=== PATIENT | male | born 1945 | race Caucasian/White ===

== ENCOUNTER 2016-11-24 09:04 | Day surgery (SDC) | payer BC, MEDICARE ==
[~2016-11-24 09:04] MED LIST: Lactated Ringers 1,000 ML IV SCH; Sodium Chloride 0.9% 5 ML Syringe FLUSH PRN
[2016-11-24] MEDS ORDERED: fentaNYL 100 MCG/2 ML SDV ONE ×2 (09:15→10:32)
[2016-11-24] MEDS ORDERED: Midazolam 1 MG/ML 2 ML SDV ONE ×2 (09:15→10:32)
[2016-11-24] MEDS ORDERED: Propofol 200 MG/20 ML SDV ONE ×2 (09:16→10:32)
[2016-11-24] MEDS ORDERED: Albuterol/Ipratropium 3.0-0.5 MG/3 ML Neb Soln NEB ONE (10:11)
[2016-11-24] MEDS ORDERED: Propofol 200 MG/20 ML SDV IV ONE (10:32)
--- NOTE | 2016-11-24 10:49 | PCM.OPNOTE ---
- General Post-Op/Procedure Note Date of Surgery/Procedure: 11/24/16 Operative Procedure(s): Colonoscopy Findings: normal colonoscopy status post colon resection for colon carcinoma Pre Op Diagnosis: History of rectal bleeding status post colon carcinoma resected Post-Op Diagnosis: Status post colon resection for colon carcinoma. No recurrent polyps or carcinoma identified. Anesthesia Technique: MAC Primary Surgeon: Todd Condition: Good Free Text/Narrative:: INFORMED CONSENT: Patient is here today for elective colonoscopy. All aspects of this procedure have been discussed with the patient. All possible complications also, including possibility of perforation, infection, pain, bleeding and unknown complications. In the event of perforation patient may need to have abdominal exploration, colon resection, colostomy and even was discussed. Anesthetic complications were handled by anesthesia department. The patient understands fully well. Patient did not have any further questions for me at the end of my interview. The patient wishes for me to proceed. PREOPERATIVE DIAGNOSIS/INDICATIONS: [status post colon carcinoma resection, rectal bleeding] POSTOPERATIVE DIAGNOSIS: [as above no new growths or polyps identified. No bleeding lesion identified.] INSTRUMENT USED: Olympus videocolonoscope. ASA CLASSIFICATION: [2] ANESTHESIA: Continuous EKG, oximetry and intermittent blood pressure and respiratory monitoring were performed throughout the procedure. IV Versed and Fentanyl were administered. PROCEDURE PERFORMED: Colonoscopy POSITIONS OF PATIENT: Left lateral. RECTUM: Normal. SIGMOID COLON: It appears that the sigmoid colonand part of the descending colon have been resected.. DESCENDING COLON: Normal. SPLENIC FLEXURE: Normal. TRANSVERSE COLON: Normal. HEPATIC FLEXURE: Normal. ASCENDING COLON: Normal. CECUM: Normal. ILEOCECAL VALVE: Normal. BIOPSY: None. TOLERANCE: Excellent. COMPLICATIONS: None. Status post colon resection for carcinoma, otherwise negative colonoscopy.
[2016-11-24 11:47] VITALS: BP 114/82
== END 2016-11-24 11:59 | disposition home or self-care (01) ==
LOC: KA.SDS 09:04
PROVIDERS: ATTEND Family Medicine
DX: Z12.11 Encounter for screening for malignant neoplasm of colon (principal)
CPT/HCPCS: 00810; 94640; G0105; J2250; J2704; J3010; J7120

== ENCOUNTER 2021-03-22 10:27 | Inpatient (IN) | payer MEDICARE, OTHER ==
[2021-03-22] MEDS ORDERED: Prochlorperazine 5 MG Tab PO PRN (18:26)
[2021-03-22] MEDS ORDERED: Polyethylene Glycol 3350 Powder 17 GM Packet PO PRN (18:26)
[2021-03-22] MEDS ORDERED: Bisacodyl 10 MG Supp RECTAL PRN (18:26)
[2021-03-22] MEDS ORDERED: Acetaminophen/oxyCODONE 325-5 MG Tab PO PRN (18:26)
[2021-03-22] MEDS ORDERED: Acetaminophen 325 MG Tab PO PRN (18:26)
[2021-03-22] MEDS ORDERED: Mirtazapine 15 MG Tab PO SCH (21:00)
[2021-03-22] MEDS ORDERED: Non-Formulary Medication 1 Each NASBOTH SCH (21:00)
[2021-03-22] MEDS: Magnesium Oxide 500 MG Tab PO SCH (22:00)
[2021-03-22] MEDS: Metoprolol Tartrate 25 MG Tab PO SCH (22:36)
[2021-03-23] MEDS ORDERED: Nicotine 21 MG/24 Hr Patch TRDERM SCH (09:00)
[2021-03-23] MEDS ORDERED: VILANTER INH SCH (09:00)
[2021-03-23] MEDS ORDERED: Folic Acid 1 MG Tab PO SCH (09:00)
[2021-03-23] MEDS ORDERED: Furosemide 20 MG Tab PO SCH (09:00)
[2021-03-23] MEDS ORDERED: Potassium Chloride 20 MEQ Tab.ER PO SCH (09:00)
[2021-03-23] MEDS ORDERED: Ascorbic Acid 500 MG Tab PO SCH (09:00)
[2021-03-23] MEDS ORDERED: UMECLIDIN INH SCH (09:00)
[2021-03-23] MEDS ORDERED: Cholecalciferol (Vitamin D3) 25 MCG Tab PO SCH (09:00)
[2021-03-23] MEDS ORDERED: FLUTICASONE INH SCH (09:00)
[2021-03-23] MEDS: Magnesium Oxide 500 MG Tab PO SCH (09:21)
[2021-03-23] MEDS: Metoprolol Tartrate 25 MG Tab PO SCH (09:23)
[2021-03-23 09:24] VITALS: BP 139/58; PULSE 105
--- NOTE | 2021-03-23 10:08 | PCM.HP.2 ---
H&P History of Present Illness - General Date of Service: 03/23/21 Admit Problem/Dx: Admission Diagnosis/Problem Admission Diagnosis/Problem Septic shock Source of Information: Patient, Old Records - Related Data Allergies/Adverse Reactions: Allergies Allergy/AdvReac Type Severity Reaction Status Date / Time No Known Drug Allergies Allergy NKDA Verified 03/24/21 07:28 Home Medications: Home Meds Potassium Chloride 20 meq PO DAILY #30 tablet.er 02/25/21 [Rx] Acetaminophen 650 mg PO Q4H PRN 03/22/21 [History] Ascorbic Acid [Vitamin C] 1,000 mg PO DAILY 03/22/21 [History] Bisacodyl [Laxative Suppository] 10 mg RC DAILY PRN 03/22/21 [History] Cholecalciferol (Vitamin D3) [Vitamin D] 1,000 unit PO DAILY 03/22/21 [History] Fluticasone/Umeclidin/Vilanter [Trelegy Ellipta 100-62.5-25 MCG] 1 puff INH DAILY 03/22/21 [History] Folic Acid 1 mg PO DAILY 03/22/21 [History] Furosemide [Lasix] 20 mg PO DAILY 03/22/21 [History] Magnesium Oxide 250 mg PO BID 03/22/21 [History] Metoprolol Tartrate [Lopressor] 12.5 mg PO BID 03/22/21 [History] Mirtazapine [Remeron] 7.5 mg PO BEDTIME 03/22/21 [History] Nicotine [Nicotine Patch] 21 mg TD DAILY 03/22/21 [History] Prochlorperazine [Compazine] 10 mg PO QID PRN 03/22/21 [History] Sennosides 1 tab PO DAILY PRN 03/22/21 [History] oxyCODONE HCl/Acetaminophen [Oxycodone-Acetaminophen 5-325] 1 tab PO Q6H PRN 03/22/21 [History] polyethylene glycoL 3350 [MiraLAX] 17 gm PO DAILY PRN 03/22/21 [History] Past Medical History HEENT History: Reports: Impaired Vision, Sinusitis Cardiovascular History: Reports: Afib, Hypertension, SOB on Exertion Respiratory History: Reports: Bronchitis, Recurrent, COPD, SOB, Other (See Below) Other Respiratory History: Lung CA Gastrointestinal History: Reports: Other (See Below) Other Gastrointestinal History: peforated gallbladder s/p cholescystectomy February 2021 w/ abscess drain (IJ drain) Musculoskeletal History: Reports: Arthritis Endocrine/Metabolic History: Reports: Vitamin D Deficiency Hematologic History: Reports: Anemia, Folic Acid, Iron Deficiency Immunologic History: Reports: Immunosuppression Other Immunologic History: history of chemo and radiation in 2001; current chemo for metastatic lung CA Oncologic (Cancer) History: Reports: Colon, Lung, Metastatic Other Oncologic History: metastatic lung cancer - Infectious Disease History Infectious Disease History: Reports: Novel Coronavirus - Past Surgical History HEENT Surgical History: Reports: None Cardiovascular Surgical History: Reports: None Respiratory Surgical History: Reports: None GI Surgical History: Reports: Cholecystectomy, Colonoscopy Other GI Surgeries/Procedures: bowel resection Other Oncologic Surgeries/Procedures: colon resection in 2001 Social & Family History - Family History Family Medical History: No Pertinent Family History - Tobacco Use Tobacco Use Status *Q: Current Every Day Tobacco User Years of Tobacco use: 60 Packs/Tins Daily: 0.2 Used Tobacco, but Quit: No - Caffeine Use Caffeine Use: Reports: None - Alcohol Use Days Per Week of Alcohol Use: 3 Number of Drinks Per Day: 2 Total Drinks Per Week: 6 - Recreational Drug Use Recreational Drug Use: No H&P Review of Systems - Review of Systems: Review Of Systems: See Below Free Text/Narrative: somewhat difficult ROS obtained. Patient with frequent nodding off during assessment and unable to maintain full attentiveness due to fatigue. General: Reports: Malaise, Weakness, Fatigue Pulmonary: Reports: Shortness of Breath (stable for baseline) Cardiovascular: Reports: Palpitations (at times), Edema (mild). Denies: Chest Pain, Orthopnea, PND Gastrointestinal: Denies: Abdominal Pain, Bloody Stool, Constipation, Diarrhea, Hematemesis, Hematochezia, Melena, Nausea, Vomiting Genitourinary: Denies: Dysuria, Frequency, Burning, Hematuria Musculoskeletal: Reports: No Symptoms Skin: Reports: No Symptoms, Other (reddened coccyx per [facility] staff, percutaneous cholecystectomy drain) Neurological: Denies: Confusion, Headache Hematologic/Lymphatic: Reports: Anemia, Easy Bruising. Denies: Easy Bleeding Exam - Exam Exam: See Below (drain in place. dressing Clean, dry and intact. scant brown drainage in drainage bag.) - Vital Signs Vital Signs: Last Vital Signs Temp 98.6 F 03/23/21 09:00 Pulse 105 H 03/23/21 09:23 Resp 28 H 03/23/21 09:00 BP 139/58 L 03/23/21 09:23 Pulse Ox 94 L 03/23/21 09:28 Weight: 163 lb 4.8 oz - Exam Quality Assessment: Supplemental Oxygen, DVT Prophylaxis, Skin Breakdown General: Other (fatigued) Lungs: Rales Cardiovascular: Regular Rate, Irregular Rhythm GI/Abdominal Exam: Soft, Non-Tender (Male) Exam: Deferred Rectal (Males) Exam: Deferred Extremities: Pedal Edema (trace pretibial and ankle edema), Pallor Skin: Warm, Dry, Other - Patient Data Result Diagrams: 03/23/21 17:15 03/23/21 17:15 Sepsis Event Note - Evaluation Sepsis Screening Result: Severe Sepsis Risk - Focused Exam Vital Signs: Vital Signs Temp Pulse Pulse Resp BP BP Pulse Ox 03/23/21 09:28 94 L 03/23/21 09:23 105 H 139/58 L 03/23/21 09:00 98.6 F 105 H 28 H 139/58 L 94 L - Problem List (1) Physical deconditioning SNOMED Code(s): 83400788803221 ICD Code: R53.81 - OTHER MALAISE Status: Acute (2) Rupture of gallbladder SNOMED Code(s): 68409699 ICD Code: K82.2 - PERFORATION OF GALLBLADDER Status: Acute (3) Lung mass SNOMED Code(s): 695746657 ICD Code: R91.8 - OTHER NONSPECIFIC ABNORMAL FINDING OF LUNG FIELD Status: Acute (4) Pancreatic mass SNOMED Code(s): 900638670 ICD Code: K86.89 - OTHER SPECIFIED DISEASES OF PANCREAS Status: Acute (5) Septic shock SNOMED Code(s): 65885912 ICD Code: A41.9 - SEPSIS, UNSPECIFIED ORGANISM; R65.21 - SEVERE SEPSIS WITH SEPTIC SHOCK Status: Acute (6) Thrombocytopenia SNOMED Code(s): 792685827 ICD Code: D69.6 - THROMBOCYTOPENIA, UNSPECIFIED Status: Acute (7) Chronic respiratory failure with hypoxia, on home O2 therapy SNOMED Code(s): 814229083 ICD Code: J96.11 - CHRONIC RESPIRATORY FAILURE WITH HYPOXIA; Z99.81 - D EPENDENCE ON SUPPLEMENTAL OXYGEN Status: Acute Problem List Initiated/Reviewed/Updated: Yes Orders Last 24hrs: Active Orders 24 hr Category Date Time Status Patient Status [ADT] Routine ADT 03/22/21 18:15 Active Communication Order [RC] 09 Care 03/22/21 21:00 Active Communication Order [RC] 09 Care 03/23/21 09:00 Active Communication Order [RC] Care 03/22/21 21:00 Active Dietary Supplements [RC] ACBED Care 03/23/21 06:50 Active May Shower [RC] .PRN Care 03/22/21 18:20 Active Oxygen Therapy [RC] .PRN Care 03/22/21 18:15 Active Pressure Ulcer Assessment [RC] Care 03/22/21 21:00 Active Surgical Drains [Drain Management] [RC] Care 03/22/21 19:18 Active Up With Assistance [RC] DAILY Care 03/22/21 18:20 Active VTE/DVT Education [RC] Fr@09 Care 03/22/21 18:15 Active Vital Signs [RC] Care 03/22/21 18:15 Active Consult to Case Management/Secondary School Principal [CONS] Cons 03/23/21 07:31 Active Routine PT Evaluation and Treatment [CONS] Routine Cons 03/22/21 18:20 Active Acetaminophen [TylenoL] Med 03/22/21 18:26 Active 650 mg PO Q4H PRN Acetaminophen/oxyCODONE [Percocet 325-5 MG] Med 03/22/21 18:26 Active 1 tab PO Q6H PRN Ascorbic Acid [Vitamin C] Med 03/23/21 09:00 Active 1,000 mg PO DAILY Cefpodoxime Proxetil Med 03/22/21 18:30 Pending 200 mg PO Q12H Cholecalciferol (Vitamin D3) [Vitamin D3] Med 03/23/21 09:00 Active 25 mcg PO DAILY Docusate Sodium/Sennosides [Senna Plus] Med 03/22/21 18:26 Active 1 tab PO DAILY PRN Fluticasone/Umeclidin/Vilanter Med 03/23/21 09:00 Pending 1 puff INH DAILY Folic Acid Med 03/23/21 09:00 Active 1 mg PO DAILY Furosemide [Lasix] Med 03/23/21 09:00 Active 20 mg PO DAILY Magnesium Oxide Med 03/22/21 21:00 Active 250 mg PO BID Metoprolol Tartrate [Lopressor] Med 03/22/21 21:00 Active 12.5 mg PO BID Mirtazapine [Remeron] Med 03/22/21 21:00 Active 7.5 mg PO BEDTIME Nicotine [Habitrol] Med 03/23/21 09:00 Active 21 mg TRDERM DAILY Non-Formulary Medication [NF Drug] Med 03/22/21 21:00 Pending 2 each NASBOTH TID Potassium Chloride [Klor-Con M20] Med 03/23/21 09:00 Active 20 meq PO DAILY Prochlorperazine [Compazine] Med 03/22/21 18:26 Active 10 mg PO QID PRN bisacodyL [Dulcolax] Med 03/22/21 18:26 Active 10 mg RECTAL DAILY PRN polyethylene glycoL 3350 [MiraLAX] Med 03/22/21 18:26 Active 17 gm PO DAILY PRN Resuscitation Status Routine Resus Stat 03/22/21 18:14 Ordered Medication Orders Acetaminophen (Acetaminophen 325 Mg Tab) 650 mg PO Q4H PRN PRN Reason: Pain Ascorbic Acid (Ascorbic Acid 500 Mg Tab) 1,000 mg PO DAILY [facility] Last Admin: 03/23/21 09:24 Dose: 1,000 mg Documented by: FIDELINA Bisacodyl (Bisacodyl 10 Mg Supp) 10 mg RECTAL DAILY PRN PRN Reason: Constipation Cholecalciferol (Cholecalciferol (Vitamin D3) 25 Mcg Tab) 25 mcg PO DAILY [facility] Last Admin: 03/23/21 09:24 Dose: 25 mcg Documented by: FIDELINA Folic Acid (Folic Acid 1 Mg Tab) 1 mg PO DAILY [facility] Last Admin: 03/23/21 09:20 Dose: 1 mg Documented by: FIDELINA Furosemide (Furosemide 20 Mg Tab) 20 mg PO DAILY [facility] Last Admin: 03/23/21 09:21 Dose: 20 mg Documented by: FIDELINA Magnesium Oxide (Magnesium Oxide 500 Mg Tab) 250 mg PO BID [facility] Last Admin: 03/23/21 09:21 Dose: 250 mg Documented by: Admin: 03/22/21 22:00 Dose: 250 mg Documented by: NIHARIKA Metoprolol Tartrate (Metoprolol Tartrate 25 Mg Tab) 12.5 mg PO BID [facility] Last Admin: 03/23/21 09:23 Dose: 12.5 mg Documented by: Admin: 03/22/21 22:36 Dose: Not Given Documented by: NIHARIKA Mirtazapine (Mirtazapine 15 Mg Tab) 7.5 mg PO BEDTIME [facility] Last Admin: 03/22/21 21:59 Dose: 7.5 mg Documented by: NIHARIKA Nicotine (Nicotine 21 Mg/24 Hr Patch) 21 mg TRDERM DAILY [facility] Last Admin: 03/23/21 09:24 Dose: Not Given Documented by: FIDELINA Non-Formulary Medication (Non-Formulary Medication 1 Each) 2 each NASBOTH TID [facility] Non-Formulary Medication (Cefpodoxime Proxetil) 200 mg PO Q12H [facility] Non-Formulary Medication (Fluticasone/Umeclidin/Vilanter) 1 puff INH DAILY [facility] Oxycodone/Acetaminophen (Acetaminophen/Oxycodone 325-5 Mg Tab) 1 tab PO Q6H PRN PRN Reason: Pain (moderate 4-6) Polyethylene Glycol (Polyethylene Glycol 3350 Powder 17 Gm Packet) 17 gm PO DAILY PRN PRN Reason: Constipation Potassium Chloride (Potassium Chloride 20 Meq Tab.Er) 20 meq PO DAILY [facility] Last Admin: 03/23/21 09:20 Dose: 20 meq Documented by: FIDELINA Prochlorperazine Maleate (Prochlorperazine 5 Mg Tab) 10 mg PO QID PRN PRN Reason: Nausea/Vomiting Senna/Docusate Sodium (Docusate Sodium/Sennosides 50-8.6 Mg Tab) 1 tab PO DAILY PRN PRN Reason: Constipation Assessment/Plan Comment:: History of present illness: This is a 75 year old male with a significant PMH of Metastatic non-small cell lung cancer on chemotherapy, pancreatic mass, COPD, thrombocytopenia, atrial fibrillation/flutter not on anticoagulation admitted to [facility] for PT/OT services. Patient was hospitalized at [facility] 03/15/21 - 03/22/21 for septic shock secondary to perforated gallbladder, gram negative bacteremia with E. Coli on blood cultures. On admission to [facility] he was started on Zosyn, switched to Ceftriaxone 03/19. Discharged on oral Vantin 200 mg 2 times a day for total 14 days given bacteremia. He underwent cholecystectomy with drainage tube placement on 03/16/21. limited drainage output per records. Primary problems: # Perforated gallbladder- -s/p cholecystectomy with percutaneous cholecystectomy drain in place. - IR recommendation to keep drain usually for 6 weeks to have time to perform a tract before removal. # septic shock- secondary to above # Gram-negative bacteremia- - E. coli blood cultures pansensitive. - started on Cefpodoxime (Vantin) BID for an additional 8 days (14 total days). Cefpodoxime is not available locally will switch to to Cefdinir alternate 3rd generation cephalosporin available in facility. # Thrombocytopenia- - acute on chronic secondary to chemotherapy. - 60,000 at discharge. dropped to 34,000 during hospitalization. - No report of easy bleeding. # Non-small cell lung cancer of the RUL- - metastasis to the pancreas, left adrenal gland, left abdominal wall site- - s/p radiation therapy to the pancreatic mass. - s/p chemo with carboplatin + taxol x 4 cycles. Added keytruda with cycle 3. 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 followed by oncology at [facility]. #COPD- - on home oxygen with 2-3 L continuously. - on Trelegy Chronic conditions # anemia- secondary to chemo. 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 planned for during hospitalization however due to pulmonary status GI Recommend outpatient ERCP in one month. # tobacco use disorder- NRT # Hypokalemia- 20 MeQ K+ daily. #Hypomagnesemia-replaced IV prior to discharge. started on PO replacement. #Atrial fibrillation:5started low-dose gzaweuvtx15.5mg twice a day which was continued at discharge. No anticoagulation due to thrombocytopenia. # Chronic diastolic CHF- on lasix 20mg with potassium supplement. ECHO 01/17/21 normal LV systolic function. EF 65%. grade 1 diastolic dysfunction. no significant valvular abnormalities. # dilatation of the aorta- noted on ECHO. measuring 41.0 mm # Nausea- compazine PRN # Constipation- miralax daily. Senna PRN. # insomnia- remeron MISC meds/supplements- calcium, vitamin D, Folic acid. Diet: mechanical soft diet. (Dentures were lost during hospitalization in [place]. Patient reports difficulty with chewing as a result. Dietary to work with patient with meal selection. CODE STATUS: DNR/DNI 8/7/21 Lengthy discussion had with patient with present at bedside. Also called both daughters Hawa (DPTHAD) and Lina to review patient wishes and code status. Patient and family collectively agree to change patient from a Full code and DNR. Patient states that he does not wish to have CPR, intubation or any artificial nutrition. For now we will continue patient as a full treatment. However did discuss with patient his wishes for continued treatment and he states he is unsure. POLST form reviewed with patient and signed by patient with presents at bedside. Follow-up: - 04/01/21- Oncology follow-up with Dr. Mancini. Chemotherapy. - outpatient ERCP in approximately 1 month with stent change (referral placed at discharge, scheduled date pending) - Outpatient IR follow-up for drain removal in approximately 6 weeks (referral placed at discharge, scheduled date pending)
[2021-03-23] MEDS: CEFPODOXIME PROXETIL 200 MG PO SCH (13:38)
[2021-03-23 17:45] LABS: ANION GAP 9.5 mmol/L (5-15); CHLORIDE,CL 97 mmol/L (98-107); SODIUM,NA 135 mmol/L (136-145)
--- NOTE | 2021-03-23 18:38 | PCM.DCSUM1 ---
Discharge Summary - Discharge Data Discharge Date: 03/23/21 Discharge Disposition: Admitted As Inpatient 66 Condition: Good - Discharge Diagnosis/Problem(s) (1) Physical deconditioning SNOMED Code(s): 97635960201771 ICD Code: R53.81 - OTHER MALAISE Status: Acute (2) Rupture of gallbladder SNOMED Code(s): 95900854 ICD Code: K82.2 - PERFORATION OF GALLBLADDER Status: Acute (3) Lung mass SNOMED Code(s): 464475200 ICD Code: R91.8 - OTHER NONSPECIFIC ABNORMAL FINDING OF LUNG FIELD Status: Acute (4) Pancreatic mass SNOMED Code(s): 338475969 ICD Code: K86.89 - OTHER SPECIFIED DISEASES OF PANCREAS Status: Acute (5) Septic shock SNOMED Code(s): 13774946 ICD Code: A41.9 - SEPSIS, UNSPECIFIED ORGANISM; R65.21 - SEVERE SEPSIS WITH SEPTIC SHOCK Status: Acute (6) Thrombocytopenia SNOMED Code(s): 877434010 ICD Code: D69.6 - THROMBOCYTOPENIA, UNSPECIFIED Status: Acute (7) Chronic respiratory failure with hypoxia, on home O2 therapy SNOMED Code(s): 060334272 ICD Code: J96.11 - CHRONIC RESPIRATORY FAILURE WITH HYPOXIA; Z99.81 - DEPENDENCE ON SUPPLEMENTAL OXYGEN Status: Acute (8) Urinary retention SNOMED Code(s): 920931386 ICD Code: R33.9 - RETENTION OF URINE, UNSPECIFIED Status: Acute (9) Acute and chronic respiratory failure with hypoxia SNOMED Code(s): 12585879, 822383231 ICD Code: J96.21 - ACUTE AND CHRONIC RESPIRATORY FAILURE WITH HYPOXIA Status: Acute - Patient Summary/Data Hospital Course: History of present illness: This is a 75 year old male with a significant PMH of Metastatic non-small cell lung cancer on chemotherapy, pancreatic mass, COPD, thrombocytopenia, atrial fibrillation/flutter not on anticoagulation admitted to [facility] 03/22/21 initially swing bed for PT/OT services. Patient was hospitalized at [facility] 03/15/21 - 03/22/21 for septic shock secondary to perforated gallbladder, gram negative bacteremia with E. Coli on blood cultures. On admission to [facility] he was started on Zosyn, switched to Ceftriaxone 03/19. Discharged on oral Vantin 200 mg 2 times a day for 8 days (total 14 days) given bacteremia. He underwent cholecystectomy with drainage tube placement on 03/16/21. limited drainage output per records. Patient was changed from swing bed status to inpatient on 03/23/21 for multiple acute concerns including worsening hypoxia, decreased urine output. Hospitalization Course: 03/22/21- Patient arrived from [facility] late evening and admitted to swing bed at [facility] 03/23/21 Patient ill appearing on hospital rounds 03/23/21. He is lying in bed with limited interaction and slow to respond to verbal stimuli. He is fatigued and profoundly weak. Lengthy discussion had with patient regarding Full code status with patient desiring to change to a DRN status with family in agreement. Interval update 03/23/21: acute patient concerns. plan to discharge patient from swingbed and admit to inpatient status. #Decreased urine output # urinary retetnion - Nursing staff noted no urine output since the prior shift production associate. - bladder ultrasound around 1400 with only 50 ml in the bladder to approximately 350 ml PO intake. Still no urine output by evening shift. - renal function done and normal - Patient catheterized around 1900 for approximately 250ml urine output of yana urine. - will trial small fluid increase with NS 75ml/hr x 4 hours with close monitoring for fluid overload. patient has had poor oral/fluid intake. - also note reports of decreased urine output during hospitalization at [facility]. Discharge documentation notes an intake of 1400 with output of 25ml of the day of discharge. however unsure if this was accurate. This information and urinary concerns were not relayed on discharge. # Acute on chronic hypoxic respiratory failure. - Staff also report worsening respiratory status with reports of increased SOB and hypoxia - CBC done with stable WBC however increase in percent neutrophils to 97% - CMP done and stable - BNP elevated at 431 however this is down from [facility] - EKG done Sinus tachy with PVCs, right BBB, possible inferior infarct (no change from previous EKG) - Chest x-ray showing infiltrate, atelectasis, and effusion of left lung base ? pneumonia. PE a consideration - CTA- no PE. atelectasis at left lung base, mild pleural reaction bilaterally. Known right upper lung malignancy and pancreatic mass. Hospitalization problems: # Acute on chronic hypoxic respiratory failure # COPD - on home oxygen with 2-3 L continuously however with increasing oxygen requirements requiring up to 5 L now - on Trelegy - CTA done with no evidence of PE. No pneumonia as questioned on x-ray. # hypomagnesemia - replace 2 g IV today - recheck in AM # Decreased urine output # urinary retention - indwelling catheter for accurate I/O # Perforated gallbladder- -s/p cholecystectomy with percutaneous cholecystostomy drain in place. - limited drainage output (5ml) - IR recommendation to keep drain usually for 6 weeks to have time to perform a tract before removal. # septic shock- secondary to above # Gram-negative bacteremia- - E. coli blood cultures pansensitive. - started on Cefpodoxime (Vantin) BID for an additional 8 days (14 total days) at discharge. Cefpodoxime is not available locally will switch to Cefdinir alternative 3rd generation cephalosporin available in facility. - given change in patient status. Cefdinir held and 2gm IV Rocephin given # Thrombocytopenia- - acute on chronic secondary to chemotherapy. - stable. continue to monitor - No report of easy bleeding. # Non-small cell lung cancer of the RUL- - metastasis to the pancreas, left adrenal gland, left abdominal wall site- - s/p radiation therapy to the pancreatic mass. - s/p chemo with carboplatin + taxol x 4 cycles. Added keytruda with cycle 3. 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 - followed by oncology at [facility]. Chronic conditions # anemia- secondary to chemo. 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 planned for during hospitalization however due to pulmonary status GI Recommend outpatient ERCP in one month. # tobacco use disorder- NRT # Hypokalemia- 20 MeQ K+ daily. #Atrial fibrillation:/5started low-dose btnfwuvuy82.5mg twice a day which was continued at discharge. No anticoagulation due to thrombocytopenia. # Chronic diastolic CHF- on lasix 20mg with potassium supplement. # dilatation of the aorta- noted on ECHO. measuring 41.0 mm # Nausea- compazine PRN # Constipation- miralax daily. Senna PRN. # insomnia- remeron MISC meds/supplements- calcium, vitamin D, Folic acid. Diet: mechanical soft diet. (Dentures were lost during hospitalization in [place]. Patient reports difficulty with chewing as a result. Dietary to work with patient with meal selection. CODE STATUS: DNR/DNI 03/23/21 Lengthy discussion had with patient with present at bedside. Also called both daughters Hawa (DPTHAD) and Lina to review patient wishes and code status. Patient and family collectively agree to change patient from a Full code and DNR. Patient states that he does not wish to have CPR, intubation or any artificial nutrition. For now we will continue patient as a full treatment. However did discuss with patient his wishes for continued treatment and he states he is unsure. POLST form reviewed with patient and signed by patient with presents at bedside. Disposition: - Plan for discharge from swing bed status and admit to inpatient states for acute on chronic hypoxic respiratory failure and urinary retention/decreased urinary output. Follow-up: - 04/01/21- Oncology follow-up with Dr. Mancini. Chemotherapy. - outpatient ERCP in approximately 1 month with stent change (referral placed at discharge, scheduled date pending) - Outpatient IR follow-up for drain removal in approximately 6 weeks (referral placed at discharge, scheduled date pending) - Discharge Plan Home Medications: Home Meds Potassium Chloride 20 meq PO DAILY #30 tablet.er 02/25/21 [Rx] Acetaminophen 650 mg PO Q4H PRN 03/22/21 [History] Ascorbic Acid [Vitamin C] 1,000 mg PO DAILY 03/22/21 [History] Bisacodyl [Laxative Suppository] 10 mg RC DAILY PRN 03/22/21 [History] Cholecalciferol (Vitamin D3) [Vitamin D] 1,000 unit PO DAILY 03/22/21 [History] Fluticasone/Umeclidin/Vilanter [Trelegy Ellipta 100-62.5-25 MCG] 1 puff INH DAILY 03/22/21 [History] Folic Acid 1 mg PO DAILY 03/22/21 [History] Furosemide [Lasix] 20 mg PO DAILY 03/22/21 [History] Magnesium Oxide 250 mg PO BID 03/22/21 [History] Metoprolol Tartrate [Lopressor] 12.5 mg PO BID 03/22/21 [History] Mirtazapine [Remeron] 7.5 mg PO BEDTIME 03/22/21 [History] Nicotine [Nicotine Patch] 21 mg TD DAILY 03/22/21 [History] Prochlorperazine [Compazine] 10 mg PO QID PRN 03/22/21 [History] Sennosides 1 tab PO DAILY PRN 03/22/21 [History] oxyCODONE HCl/Acetaminophen [Oxycodone-Acetaminophen 5-325] 1 tab PO Q6H PRN 03/22/21 [History] polyethylene glycoL 3350 [MiraLAX] 17 gm PO DAILY PRN 03/22/21 [History] - Discharge Summary/Plan Comment DC Time >30 min.: No Total # of Minutes for Discharge Time: 30 - General Info Date of Service: 03/23/21 Functional Status: Denies: Ambulating - Review of Systems General: Reports: Weakness, Fatigue, Malaise, Appetite Pulmonary: Reports: Shortness of Breath, Cough Cardiovascular: Reports: Palpitations, Edema (minimal). Denies: Chest Pain Gastrointestinal: Reports: Decreased Appetite. Denies: Abdominal Pain, Constipation, Diarrhea, Difficulty Swallowing, Hematochezia, Melena, Nausea, Vomiting Genitourinary: Reports: No Symptoms Musculoskeletal: Reports: Other (buttock discomfort) Skin: Reports: Pallor Neurological: Reports: No Symptoms Psychiatric: Reports: No Symptoms - Patient Data Vitals - Most Recent: Last Vital Signs Temp 98.6 F 03/23/21 09:00 Pulse 105 H 03/23/21 09:23 Resp 28 H 03/23/21 16:28 BP 139/58 L 03/23/21 09:23 Pulse Ox 91 L 03/23/21 16:28 Weight - Most Recent: 163 lb 4.8 oz I&O - Last 24 hours: Intake & Output 03/23/21 03/23/21 03/23/21 06:59 14:59 22:59 Intake Total 0 340 Output Total 5 0 Balance -5 340 Lab Results - Last 24 hrs: Laboratory Results - last 24 hr 03/23/21 03/23/21 03/23/21 Range/Units 17:15 17:15 17:15 WBC 10.93 H (5.00-10.00) 10^3/uL RBC 2.22 L (4.50-6.00) 10^6/uL Hgb 7.5 L (13.0-17.0) g/dL Hct 23.1 L (40.0-52.0) % MCV 104.1 H (82.0-92.0) fL MCH 33.8 H (27.0-31.0) pg MCHC 32.5 (32.0-36.0) g/dL RDW 18.2 H (11.5-14.5) % Plt Count 49 L (150-400) 10^3/uL MPV 13.1 H (7.4-10.4) fL Add Manual Diff Yes Neutrophils % (Manual) 97 H (50-70) % Lymphocytes % (Manual) 2 L (20-40) % Monocytes % (Manual) 1 L (2-8) % Polychromasia Macrocytosis Occasional Sodium 135 L (136-145) mmol/L Potassium 3.7 (3.5-5.1) mmol/L Chloride 97 L (98-107) mmol/L Carbon Dioxide 32.2 H (21.0-32.0) mmol/L Anion Gap 9.5 (5-15) mmol/L BUN 11 (7-18) mg/dL Creatinine 0.50 L (0.51-1.17) mg/dL Est Cr Clr Drug Dosing 119.35 mL/min Estimated GFR (MDRD) > 60 mL/min Glucose 123 (70-140) mg/dL Calcium 7.4 L (8.7-10.3) mg/dL Magnesium 1.6 L (1.8-2.4) mg/dL Total Bilirubin 0.1 L (0.2-1.0) mg/dL AST 26 (15-37) U/L ALT 15 (14-63) U/L Alkaline Phosphatase 93 (46-116) U/L B-Natriuretic Peptide 431 H (0-100) pg/mL Total Protein 4.9 L (6.4-8.2) g/dL Albumin 1.33 L (3.40-5.00) g/dL Med Orders - Current: Current Medications Discontinued Medications Acetaminophen (Acetaminophen 325 Mg Tab) 650 mg PO Q4H PRN PRN Reason: Pain Ascorbic Acid (Ascorbic Acid 500 Mg Tab) 1,000 mg PO DAILY [facility] Last Admin: 03/23/21 09:24 Dose: 1,000 mg Documented by: Bisacodyl (Bisacodyl 10 Mg Supp) 10 mg RECTAL DAILY PRN PRN Reason: Constipation Cefdinir (Cefdinir 300 Mg Cap) 300 mg PO BID [facility] Stop: 03/31/21 21:01 Cholecalciferol (Cholecalciferol (Vitamin D3) 25 Mcg Tab) 25 mcg PO DAILY [facility] Last Admin: 03/23/21 09:24 Dose: 25 mcg Documented by: Folic Acid (Folic Acid 1 Mg Tab) 1 mg PO DAILY [facility] Last Admin: 03/23/21 09:20 Dose: 1 mg Documented by: Furosemide (Furosemide 20 Mg Tab) 20 mg PO DAILY [facility] Last Admin: 03/23/21 09:21 Dose: 20 mg Documented by: Magnesium Oxide (Magnesium Oxide 500 Mg Tab) 250 mg PO BID [facility] Last Admin: 03/23/21 09:21 Dose: 250 mg Documented by: Metoprolol Tartrate (Metoprolol Tartrate 25 Mg Tab) 12.5 mg PO BID [facility] Last Admin: 03/23/21 09:23 Dose: 12.5 mg Documented by: Mirtazapine (Mirtazapine 15 Mg Tab) 7.5 mg PO BEDTIME [facility] Last Admin: 03/22/21 21:59 Dose: 7.5 mg Documented by: Nicotine (Nicotine 21 Mg/24 Hr Patch) 21 mg TRDERM DAILY [facility] Last Admin: 03/23/21 09:24 Dose: Not Given Documented by: Non-Formulary Medication (Non-Formulary Medication 1 Each) 2 each NASBOTH TID [facility] Non-Formulary Medication (Cefpodoxime Proxetil) 200 mg PO Q12H [facility] Last Admin: 03/23/21 13:38 Dose: Not Given Documented by: Fluticasone/Umeclidin/Vilanter ( Trelegy) Inhaler Own Med 1 puff INH DAILY [facility] Last Admin: 03/23/21 13:48 Dose: 1 puff Documented by: Oxycodone/Acetaminophen (Acetaminophen/Oxycodone 325-5 Mg Tab) 1 tab PO Q6H PRN PRN Reason: Pain (moderate 4-6) Polyethylene Glycol (Polyethylene Glycol 3350 Powder 17 Gm Packet) 17 gm PO DAILY PRN PRN Reason: Constipation Potassium Chloride (Potassium Chloride 20 Meq Tab.Er) 20 meq PO DAILY [facility] Last Admin: 03/23/21 09:20 Dose: 20 meq Documented by: Prochlorperazine Maleate (Prochlorperazine 5 Mg Tab) 10 mg PO QID PRN PRN Reason: Nausea/Vomiting Senna/Docusate Sodium (Docusate Sodium/Sennosides 50-8.6 Mg Tab) 1 tab PO DAILY PRN PRN Reason: Constipation - Exam Quality Assessment: Reports: Supplemental Oxygen, Skin Breakdown General: Reports: Mild Distress, Other (fatigued, difficulty in conversing due to frequently falling asleep) Neck: Reports: Supple Lungs: Reports: Rales Cardiovascular: Reports: Regular Rate, Irregular Rhythm GI/Abdominal Exam: Normal Bowel Sounds, Soft, Non-Tender (Male) Exam: Deferred Rectal (Males) Exam: Deferred Skin: Reports: Warm, Dry, Intact, Other (percutaneous drain )
[2021-03-23] MEDS ORDERED: Cefdinir 300 MG Cap PO SCH (21:00)
== END 2021-03-23 18:33 | disposition critical access hospital (66) | DRG 871 ==
LOC: KA.MS 16:45
PROVIDERS: ADMIT Nurse Practitioner Family; ATTEND Family Medicine
DX: A41.50 Gram-negative sepsis, unspecified (principal); R65.21 Severe sepsis with septic shock; K82.2 Perforation of gallbladder; J96.21 Acute and chronic respiratory failure with hypoxia; I50.32 Chronic diastolic (congestive) heart failure; C34.11 Malignant neoplasm of upper lobe, right bronchus or lung; R91.8 Other nonspecific abnormal finding of lung field; K86.89 Other specified diseases of pancreas; D69.6 Thrombocytopenia, unspecified; R33.9 Retention of urine, unspecified; Z66 Do not resuscitate; G47.00 Insomnia, unspecified; K59.00 Constipation, unspecified; E87.6 Hypokalemia; I11.0 Hypertensive heart disease with heart failure; E83.42 Hypomagnesemia; J44.9 Chronic obstructive pulmonary disease, unspecified; R53.81 Other malaise; I48.91 Unspecified atrial fibrillation; D50.9 Iron deficiency anemia, unspecified; F17.210 Nicotine dependence, cigarettes, uncomplicated; Z79.01 Long term (current) use of anticoagulants; Z79.899 Other long term (current) drug therapy; Z92.21 Personal history of antineoplastic chemotherapy; Z92.3 Personal history of irradiation; Z98.890 Other specified postprocedural states; Z87.09 Personal history of other diseases of the respiratory system; Z85.118 Personal history of other malignant neoplasm of bronchus and lung; Z90.49 Acquired absence of other specified parts of digestive tract; Z86.16 Personal history of COVID-19
CPT/HCPCS: 36415; 80053; 83735; 83880; 85025; A9270-GY

== ENCOUNTER 2021-03-23 18:35 | Inpatient (IN) | payer MEDICARE, OTHER ==
[2021-03-23] MEDS ORDERED: cefTRIAXone 2 GM Vial IVPUSH ONE (18:43)
[2021-03-23] MEDS ORDERED: Bisacodyl 10 MG Supp RECTAL PRN (19:52)
[2021-03-23] MEDS ORDERED: SENNOSIDES 8.6 MG PO PRN (19:52)
[2021-03-23] MEDS ORDERED: Prochlorperazine 5 MG Tab PO PRN (19:52)
[2021-03-23] MEDS ORDERED: Acetaminophen/oxyCODONE 325-5 MG Tab PO PRN (19:52)
[2021-03-23] MEDS ORDERED: Polyethylene Glycol 3350 Powder 17 GM Packet PO PRN (19:52)
--- NOTE | 2021-03-23 20:07 | CR ---
[id number] RAD/RAD Chest Portable EXAM: PORTABLE CHEST RADIOGRAPH. INDICATION: HYPOXIA COMPARISON: CORRELATION IS MADE WITH MARCH 15, 2021 FINDINGS: Volume loss with pleural reaction is a new development at the left lung base The right upper lobe mass is stable The lungs otherwise are clear IMPRESSION: INFILTRATE, ATELECTASIS, AND EFFUSION LEFT BASE LIKELY THIS REPRESENTS PNEUMONIA PULMONARY EMBOLUS IS A CONSIDERATION Ady Gómez MD 03/23/212005 Thank you for allowing us to participate in the care of your patient.
--- NOTE | 2021-03-23 20:10 | PCM.HP.2 ---
H&P History of Present Illness - General Date of Service: 03/23/21 Admit Problem/Dx: Admission Diagnosis/Problem Admission Diagnosis/Problem Bacteremia Source of Information: Patient, Family, Old Records, Significant Other - Related Data Allergies/Adverse Reactions: Allergies Allergy/AdvReac Type Severity Reaction Status Date / Time No Known Drug Allergies Allergy NKDA Verified 03/24/21 07:28 Home Medications: Home Meds Potassium Chloride 20 meq PO DAILY #30 tablet.er 02/25/21 [Rx] Acetaminophen 650 mg PO Q4H PRN 03/22/21 [History] Ascorbic Acid [Vitamin C] 1,000 mg PO DAILY 03/22/21 [History] Bisacodyl [Laxative Suppository] 10 mg RC DAILY PRN 03/22/21 [History] Cholecalciferol (Vitamin D3) [Vitamin D] 1,000 unit PO DAILY 03/22/21 [History] Fluticasone/Umeclidin/Vilanter [Trelegy Ellipta 100-62.5-25 MCG] 1 puff INH DAILY 03/22/21 [History] Folic Acid 1 mg PO DAILY 03/22/21 [History] Furosemide [Lasix] 20 mg PO DAILY 03/22/21 [History] Magnesium Oxide 250 mg PO BID 03/22/21 [History] Metoprolol Tartrate [Lopressor] 12.5 mg PO BID 03/22/21 [History] Mirtazapine [Remeron] 7.5 mg PO BEDTIME 03/22/21 [History] Nicotine [Nicotine Patch] 21 mg TD DAILY 03/22/21 [History] Prochlorperazine [Compazine] 10 mg PO QID PRN 03/22/21 [History] Sennosides 1 tab PO DAILY PRN 03/22/21 [History] oxyCODONE HCl/Acetaminophen [Oxycodone-Acetaminophen 5-325] 1 tab PO Q6H PRN 03/22/21 [History] polyethylene glycoL 3350 [MiraLAX] 17 gm PO DAILY PRN 03/22/21 [History] Past Medical History HEENT History: Reports: Impaired Vision, Sinusitis Cardiovascular History: Reports: Afib, Hypertension, SOB on Exertion Respiratory History: Reports: Bronchitis, Recurrent, COPD, SOB, Other (See Below) Other Respiratory History: Lung CA Gastrointestinal History: Reports: Other (See Below) Other Gastrointestinal History: peforated gallbladder s/p cholescystectomy February 2021 w/ abscess drain (IJ drain) Musculoskeletal History: Reports: Arthritis Endocrine/Metabolic History: Reports: Vitamin D Deficiency Hematologic History: Reports: Anemia, Folic Acid, Iron Deficiency Immunologic History: Reports: Immunosuppression Other Immunologic History: history of chemo and radiation in 2001; current chemo for metastatic lung CA Oncologic (Cancer) History: Reports: Colon, Lung, Metastatic Other Oncologic History: metastatic lung cancer - Infectious Disease History Infectious Disease History: Reports: Novel Coronavirus - Past Surgical History HEENT Surgical History: Reports: None Cardiovascular Surgical History: Reports: None Respiratory Surgical History: Reports: None GI Surgical History: Reports: Cholecystectomy, Colonoscopy Other GI Surgeries/Procedures: bowel resection Other Oncologic Surgeries/Procedures: colon resection in 2001 Social & Family History - Family History Family Medical History: No Pertinent Family History - Caffeine Use Caffeine Use: Reports: None H&P Review of Systems - Review of Systems: Review Of Systems: See Below (surgical) General: Reports: Malaise, Weakness, Fatigue, Decreased Appetite. Denies: Fever Pulmonary: Reports: Shortness of Breath, Cough. Denies: Wheezing, Pleuritic Chest Pain Cardiovascular: Reports: Palpitations (at times), Edema (all amount). Denies: Chest Pain, Orthopnea Gastrointestinal: Reports: Decreased Appetite. Denies: Abdominal Pain, Black Stool, Bloody Stool, Constipation, Diarrhea, Hematemesis, Hematochezia, Melena, Nausea, Vomiting Genitourinary: Reports: Other (decreased urine output) Skin: Reports: Wound. Denies: Pallor, Bruising Neurological: Reports: No Symptoms Hematologic/Lymphatic: Denies: Anemia, Easy Bleeding, Easy Bruising Exam - Exam Exam: See Below - Exam Quality Assessment: Supplemental Oxygen General: Other (difficult to engage, drowsy, opens eyes to voice) Neck: Supple, Trachea Midline Lungs: Rales Cardiovascular: Regular Rate, Irregular Rhythm GI/Abdominal Exam: Normal Bowel Sounds, Soft, Non-Tender, No Distention (Male) Exam: Deferred Rectal (Males) Exam: Deferred Extremities: Pedal Edema (1+ pretibial and ankle pitting edema), Mottled (mild mottling to bilateral lower extremities. ), Pallor Skin: Ecchymosis, Other (percutaneous cholecsytostomy drain, pallor) Neurological: Normal Speech Neuro Extensive - Mental Status: Slow Response to Commands Psychiatric: Alert - Patient Data Result Diagrams: 03/26/21 13:00 03/26/21 13:00 - Problem List (1) Acute and chronic respiratory failure with hypoxia SNOMED Code(s): 46982088, 592664484 ICD Code: J96.21 - ACUTE AND CHRONIC RESPIRATORY FAILURE WITH HYPOXIA Status: Acute Current Visit: Yes (2) Pancreatic mass SNOMED Code(s): 047374720 ICD Code: K86.89 - OTHER SPECIFIED DISEASES OF PANCREAS Status: Acute Current Visit: No (3) Lung mass SNOMED Code(s): 301590887 ICD Code: R91.8 - OTHER NONSPECIFIC ABNORMAL FINDING OF LUNG FIELD Status: Acute Current Visit: No (4) Shortness of breath SNOMED Code(s): 502303691 ICD Code: R06.02 - SHORTNESS OF BREATH Status: Acute Current Visit: No (5) Thrombocytopenia SNOMED Code(s): 367899141 ICD Code: D69.6 - THROMBOCYTOPENIA, UNSPECIFIED Status: Acute Current Visit: No (6) Septic shock SNOMED Code(s): 68557324 ICD Code: A41.9 - SEPSIS, UNSPECIFIED ORGANISM; R65.21 - SEVERE SEPSIS WITH SEPTIC SHOCK Status: Acute Current Visit: No (7) Rupture of gallbladder SNOMED Code(s): 83518491 ICD Code: K82.2 - PERFORATION OF GALLBLADDER Status: Acute Current Visit: No (8) Decreased urine output SNOMED Code(s): 218266697 ICD Code: R34 - ANURIA AND OLIGURIA Status: Acute Current Visit: Yes (9) Urinary retention SNOMED Code(s): 232278482 ICD Code: R33.9 - RETENTION OF URINE, UNSPECIFIED Status: Acute Current V isit: Yes Problem List Initiated/Reviewed/Updated: Yes Orders Last 24hrs: Active Orders 24 hr Category Date Time Status Patient Status [ADT] Routine ADT 03/23/21 18:39 Active Cardiac Monitoring [RC] CONTINUOUS Care 03/23/21 18:41 Active EKG Documentation Completion [RC] ASDIRECTED Care 03/23/21 18:42 Active [place] Catheter Insertion [Insert Urinary Catheter] [OM. Care 03/23/21 18:45 Ordered PC] Q24H Height and Weight [RC] 07 Care 03/23/21 18:39 Active Intake and Output [RC] 06,14,22 Care 03/23/21 18:41 Active Oxygen Therapy [RC] DAILY Care 03/23/21 18:39 Active Up With Assistance [RC] DAILY Care 03/23/21 18:39 Active Urinary Catheter Assessment [RC] ASDIRECTED Care 03/23/21 18:39 Active Urinary Catheter Assessment [RC] ASDIRECTED Care 03/23/21 18:45 Active Vital Signs [RC] Q4H Care 03/23/21 18:39 Active Mechanical Soft Diet [DIET] Diet 03/23/21 Breakfast Active Chest 1V Frontal [CR] Stat Exams 03/23/21 18:39 Ordered Acetaminophen [TylenoL] Med 03/23/21 19:52 Ordered 650 mg PO Q4H PRN Acetaminophen/oxyCODONE [Percocet 325-5 MG] Med 03/23/21 19:52 Ordered 1 tab PO Q6H PRN Ascorbic Acid [Vitamin C] Med 03/24/21 09:00 Ordered 1,000 mg PO DAILY Cholecalciferol (Vitamin D3) [Vitamin D3] Med 03/24/21 09:00 Ordered 1,000 unit PO DAILY Fluticasone/Umeclidin/Vilanter Med 03/24/21 09:00 Ordered 1 puff INH DAILY Folic Acid Med 03/24/21 09:00 Ordered 1 mg PO DAILY Furosemide [Lasix] Med 03/24/21 09:00 Ordered 20 mg PO DAILY Metoprolol Tartrate [Lopressor] Med 03/23/21 21:00 Ordered 12.5 mg PO BID Mirtazapine [Remeron] Med 03/23/21 21:00 Ordered 7.5 mg PO BEDTIME Nicotine [Habitrol] Med 03/24/21 09:00 Ordered 21 mg TRDERM DAILY Potassium Chloride [Potassium Chloride] Med 03/24/21 09:00 Ordered 20 meq PO DAILY Prochlorperazine [Compazine] Med 03/23/21 19:52 Ordered 10 mg PO QID PRN Sennosides [Sennosides] Med 03/23/21 19:52 Ordered 1 tab PO DAILY PRN Sodium Chloride 0.9% [Saline Flush] Med 03/23/21 18:39 Active 10 ml FLUSH Q8HR PRN bisacodyL [Dulcolax] Med 03/23/21 19:52 Ordered 10 mg RECTAL DAILY PRN polyethylene glycoL 3350 [MiraLAX] Med 03/23/21 19:52 Ordered 17 gm PO DAILY PRN Saline Lock Insert [OM.PC] Routine Oth 03/23/21 18:39 Ordered Resuscitation Status Routine Resus Stat 03/23/21 18:39 Ordered EKG 12 Lead [EK] Stat Ther 03/23/21 18:39 Ordered Medication Orders Acetaminophen (Acetaminophen 325 Mg Tab) 650 mg PO Q4H PRN PRN Reason: Pain Bisacodyl (Bisacodyl 10 Mg Supp) 10 mg RECTAL DAILY PRN PRN Reason: Constipation Cholecalciferol (Cholecalciferol (Vitamin D3) 25 Mcg Tab) mcg PO DAILY KELY Folic Acid (Folic Acid 1 Mg Tab) 1 mg PO DAILY KELY Furosemide (Furosemide 20 Mg Tab) 20 mg PO DAILY KELY Metoprolol Tartrate (Metoprolol Tartrate 25 Mg Tab) 12.5 mg PO BID KELY Mirtazapine (Mirtazapine 15 Mg Tab) 7.5 mg PO BEDTIME KELY Nicotine (Nicotine 21 Mg/24 Hr Patch) 21 mg TRDERM DAILY KELY Non-Formulary Medication (Ascorbic Acid [Vitamin C]) 1,000 mg PO DAILY KELY Non-Formulary Medication (Fluticasone/Umeclidin/Vilanter) 1 puff INH DAILY KELY Non-Formulary Medication (Potassium Chloride [Potassium Chloride]) 20 meq PO DAILY KELY Non-Formulary Medication (Prochlorperazine [Compazine]) 10 mg PO QID PRN PRN Reason: Nausea/Vomiting Non-Formulary Medication (Sennosides [Sennosides]) 1 tab PO DAILY PRN PRN Reason: Constipation Oxycodone/Acetaminophen (Acetaminophen/Oxycodone 325-5 Mg Tab) 1 tab PO Q6H PRN PRN Reason: Pain (moderate 4-6) Polyethylene Glycol (Polyethylene Glycol 3350 Powder 17 Gm Packet) 17 gm PO DAILY PRN PRN Reason: Constipation Sodium Chloride (Sodium Chloride 0.9% 10 Ml Syringe) 10 ml FLUSH Q8HR PRN PRN Reason: keep vein open Assessment/Plan Comment:: History of present illness: This is a 75 year old male with a significant PMH of Metastatic non-small cell lung cancer on chemotherapy, pancreatic mass, COPD, thrombocytopenia, atrial fibrillation/flutter not on anticoagulation admitted to [facility] 03/22/21 initially swing bed for PT/OT services. Patient was hospitalized at [facility] 03/15/21 - 03/22/21 for septic shock secondary to perforated gallbladder, gram negative bacteremia with E. Coli on blood cultures. On admission to [facility] he was started on Zosyn, switched to Ceftriaxone 03/19. Discharged on oral Vantin 200 mg 2 times a day for 8 days (total 14 days) given bacteremia. He underwent lauren cystectomy with drainage tube placement on 03/16/21. limited drainage output per records. Patient was changed from swing bed status to inpatient on 03/23/21 for multiple acute concerns including worsening hypoxia, decreased urine output. Hospitalization Course: 03/22/21- Patient arrived from [facility] late evening and admitted to swing bed at [facility] 03/23/21 Patient ill appearing on hospital rounds 03/23/21. He is lying in bed with limited interaction and slow to respond to verbal stimuli. He is fatigued and profoundly weak. Lengthy discussion had with patient regarding Full code status with patient desiring to change to a DRN status with family in agreement. Interval update 03/23/21: Patient switched from SB status to inpatient status due to acute change in clinical status. 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 - bladder ultrasound around 1400 with only 50 ml in the bladder to approximately 350 ml PO intake. Still no urine output by evening shift. - renal function done and normal - Patient catheterized around 1900 for approximately 250ml urine output of yana urine. - will trial small fluid increase with NS 75ml/hr x 4 hours with close mon itoring for fluid overload. patient has had poor oral/fluid intake. - also note reports of decreased urine output during hospitalization at [place]. Discharge documentation notes an intake of 1400 with output of 25ml of the day of discharge. however unsure if this was accurate. This information and urinary concerns were not relayed on discharge. # Acute on chronic hypoxic respiratory failure. - Staff also report worsening respiratory status with reports of increased SOB and hypoxia - CBC done with stable WBC however increase in percent neutrophils to 97% - CMP done and stable - BNP elevated at 431 however this is down from [place] - EKG done Sinus tachy with PVCs, right BBB, possible inferior infarct (no change from previous EKG) - Chest x-ray showing infiltrate, atelectasis, and effusion of left lung base ? pneumonia. PE a consideration - CTA- no PE. atelectasis at left lung base, mild pleural reaction bilaterally. Known right upper lung malignancy and pancreatic mass. Hospitalization problems: # Acute on chronic hypoxic respiratory failure # COPD - on home oxygen with 2-3 L continuously however with increasing oxygen requirements requiring up to 5 L now - on Trelegy - CTA done with no evidence of PE. No pneumonia as questioned on x-ray. # hypomagnesemia - replace 2 g IV today - recheck in AM # Decreased urine output # urinary retention - indwelling catheter for accurate I/O # Perforated gallbladder- -s/p cholecystectomy with percutaneous cholecystostomy drain in place. - limited drainage output (5ml) - IR recommendation to keep drain usually for 6 weeks to have time to perform a tract before removal. # septic shock- secondary to above # Gram-negative bacteremia- - E. coli blood cultures pansensitive. - started on Cefpodoxime (Vantin) BID for an additional 8 days (14 total day s) at discharge. Cefpodoxime is not available locally will switch to Cefdinir alternative 3rd generation cephalosporin available in facility. - given change in patient status. Cefdinir held and 2gm IV Rocephin given # Thrombocytopenia- - acute on chronic secondary to chemotherapy. - stable. continue to monitor - No report of easy bleeding. # Non-small cell lung cancer of the RUL- - metastasis to the pancreas, left adrenal gland, left abdominal wall site- - s/p radiation therapy to the pancreatic mass. - s/p chemo with carboplatin + taxol x 4 cycles. Added keytruda with cycle 3. 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 - followed by oncology at [facility]. Chronic conditions # anemia- secondary to chemo. 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 planned for during hospitalization however due to pulmonary status GI Recommend outpatient ERCP in one month. # tobacco use disorder- NRT # Hypokalemia- 20 MeQ K+ daily. #Atrial fibrillation:8/5started low-dose [id number] twice a day which was continued at discharge. No anticoagulation due to thrombocytopenia. # Chronic diastolic CHF- on lasix 20mg with potassium supplement. # dilatation of the aorta- noted on ECHO. measuring 41.0 mm # Nausea- compazine PRN # Constipation- miralax daily. Senna PRN. # insomnia- remeron MISC meds/supplements- calcium, vitamin D, Folic acid. Diet: mechanical soft diet. (Dentures were lost during hospitalization in [place]. Patient reports difficulty with chewing as a result. Dietary to work with patient with meal selection. CODE STATUS: DNR/DNI 03/23/21 Lengthy discussion had with patient with present at bedside. Also called both daughters Hawa (DPTHAD) and Lina to review patient wishes and code status. Patient and family collectively agree to change patient from a Full code and DNR. Patient states that he does not wish to have CPR, intubation or any artificial nutrition. For now we will continue patient as a full treatment. However did discuss with patient his wishes for continued treatment and he states he is unsure. POLST form reviewed with patient and signed by patient with presents at bedside. Disposition: - Patient changed from swing bed status to inpatient - continue inpatient states for acute on chronic hypoxic respiratory failure and urinary retention. - Strict IO - daily weights. - recheck labs in the AM - continue close follow-up/monitoring Follow-up: - 04/01/21- Oncology follow-up with Dr. Mancini. Chemotherapy. - outpatient ERCP in approximately 1 month with stent change (referral placed at discharge, scheduled date pending) - Outpatient IR follow-up for drain removal in approximately 6 weeks (referral placed at discharge, scheduled date pending)
[2021-03-23] MEDS ORDERED: Lidocaine 2% Jelly 5 ML Tube TOP ONE (20:16)
[2021-03-23] MEDS ORDERED: Iopamidol 755 Mg/ML 75 ML Bottle IVPUSH ONE (21:11)
[2021-03-23] MEDS ORDERED: Sodium Chloride 0.9% 100 ML IV SCH (21:15)
[2021-03-23] MEDS ORDERED: Magnesium Sulfate/Water 2 GM in Premix Bag 1 BAG IV ONE (22:33)
[2021-03-23] MEDS ORDERED: Sodium Chloride 0.9% 500 ML IV SCH (22:38)
[2021-03-23] MEDS: Mirtazapine 15 MG Tab PO SCH (23:08)
[2021-03-23] MEDS: Metoprolol Tartrate 25 MG Tab PO SCH (23:08)
[2021-03-23] MEDS: Acetaminophen 325 MG Tab PO PRN (23:55)
[2021-03-24] MEDS ORDERED: Lidocaine 2% 100 MG/5 ML Syringe IVPUSH PRN (07:33)
[2021-03-24] MEDS ORDERED: EPINEPHrine 1:10,000 1 MG/10 ML Syringe IVPUSH PRN (07:33)
[2021-03-24] MEDS ORDERED: Atropine 0.1 MG/ML 10 ML Syringe IVPUSH PRN (07:33)
[2021-03-24] MEDS ORDERED: Nitroglycerin 0.4 MG Tab.SL SL PRN (07:33)
--- NOTE | 2021-03-24 09:21 | CT ---
[id number] CT/CTA Chest Exam: CTA Chest Clinical Data: SHORTNESS OF BREATH COMPARISON: CORRELATION IS MADE WITH THE CAT SCAN OF FEBRUARY 25 FINDINGS: There are no pulmonary emboli The right upper lobe mass again is seen There is atelectasis at the left lung base There is centrilobular emphysema There is mild pleural reaction at both lung bases The previously described left adrenal mass again is seen Air in the biliary tree is identified There is a catheter in the biliary tree. Pathology of the pancreas again is seen in the body of the pancreas There now is a small amount of ascites IMPRESSION: NO PULMONARY EMBOLI ATELECTASIS AT LEFT LUNG BASE MILD PLEURAL REACTION BILATERALLY LEFT ADRENAL MASS. AIR IN BILIARY TREE PANCREATIC MASS. RIGHT UPPER LOBE LUNG MALIGNANCY Ady Gómez MD 03/24/21 0197 Thank you for allowing us to participate in the care of your patient.
[2021-03-24] MEDS: Potassium Chloride 10 MEQ Tab.ER PO SCH (09:58)
[2021-03-24] MEDS: Ascorbic Acid 500 MG Tab PO SCH (09:58)
[2021-03-24] MEDS: Folic Acid 1 MG Tab PO SCH (09:59)
[2021-03-24] MEDS: Furosemide 20 MG Tab PO SCH (09:59)
[2021-03-24] MEDS: Nicotine 21 MG/24 Hr Patch TRDERM SCH (09:59)
[2021-03-24] MEDS: Cholecalciferol (Vitamin D3) 25 MCG Tab PO SCH (09:59)
[2021-03-24] MEDS: Metoprolol Tartrate 25 MG Tab PO SCH ×2 (10:01→21:55)
[2021-03-24] MEDS: VILANTER INH SCH (10:22)
[2021-03-24] MEDS: FLUTICASONE INH SCH (10:22)
[2021-03-24] MEDS: UMECLIDIN INH SCH (10:22)
--- NOTE | 2021-03-24 11:36 | PCM.PN ---
- General Info Date of Service: 03/24/21 - Review of Systems General: Reports: Weakness, Fatigue, Malaise. Denies: Appetite Pulmonary: Reports: Shortness of Breath, Cough Cardiovascular: Reports: Palpitations. Denies: Chest Pain, Dyspnea on Exertion, Orthopnea Gastrointestinal: Reports: Decreased Appetite. Denies: Abdominal Pain, Diarrhea, Hematochezia, Melena, Nausea, Vomiting Genitourinary: Reports: No Symptoms Musculoskeletal: Reports: Back Pain Skin: Reports: Pallor, Other Neurological: Reports: No Symptoms Psychiatric: Reports: No Symptoms - Patient Data Vitals - Most Recent: Last Vital Signs Temp 97.5 F 03/24/21 06:39 Pulse 95 03/24/21 10:01 Resp 24 H 03/24/21 06:39 BP 130/57 L 03/24/21 10:01 Pulse Ox 90 L 03/24/21 09:00 Weight - Most Recent: 167 lb 3.2 oz I&O - Last 24 Hours: Intake & Output 03/23/21 03/24/21 03/24/21 22:59 06:59 14:59 Intake Total 240 600 Output Total 180 Balance 240 420 Med Orders - Current: Current Medications Acetaminophen (Acetaminophen 325 Mg Tab) 650 mg PO Q4H PRN PRN Reason: Pain Last Admin: 03/23/21 23:55 Dose: 650 mg Documented by: Ascorbic Acid (Ascorbic Acid 500 Mg Tab) 1,000 mg PO DAILY [facility] Last Admin: 03/24/21 09:58 Dose: 1,000 mg Documented by: Atropine Sulfate (Atropine 0.1 Mg/Ml 10 Ml Syringe) 0 mg IVPUSH ASDIRECTED PRN PRN Reason: Heart. Bisacodyl (Bisacodyl 10 Mg Supp) 10 mg RECTAL DAILY PRN PRN Reason: Constipation Cholecalciferol (Cholecalciferol (Vitamin D3) 25 Mcg Tab) 25 mcg PO DAILY [facility] Last Admin: 03/24/21 09:59 Dose: 25 mcg Documented by: Epinephrine HCl (Epinephrine 1:10,000 1 Mg/10 Ml Syringe) 1 mg IVPUSH ASDIRECTED PRN PRN Reason: Heart. Folic Acid (Folic Acid 1 Mg Tab) 1 mg PO DAILY [facility] Last Admin: 03/24/21 09:59 Dose: 1 mg Documented by: Furosemide (Furosemide 20 Mg Tab) 20 mg PO DAILY [facility] Last Admin: 03/24/21 09:59 Dose: 20 mg Documented by: Lidocaine HCl (Lidocaine 2% 100 Mg/5 Ml Syringe) 0 mg IVPUSH ASDIRECTED PRN PRN Reason: Heart. Metoprolol Tartrate (Metoprolol Tartrate 25 Mg Tab) 12.5 mg PO BID [facility] Last Admin: 03/24/21 10:01 Dose: 12.5 mg Documented by: Mirtazapine (Mirtazapine 15 Mg Tab) 7.5 mg PO BEDTIME [facility] Last Admin: 03/23/21 23:08 Dose: 7.5 mg Documented by: Nicotine (Nicotine 21 Mg/24 Hr Patch) 21 mg TRDERM DAILY [facility] Last Admin: 03/24/21 09:59 Dose: Not Given Documented by: Nitroglycerin (Nitroglycerin 0.4 Mg Tab.Sl) 0.4 mg SL ASDIRECTED PRN PRN Reason: Heart. Fluticasone/Umeclidin/Vilanter 28 Puff/Inhaler Own Med 1 puff INH DAILY [facility] Last Admin: 03/24/21 10:22 Dose: 1 puff Documented by: Oxycodone/Acetaminophen (Acetaminophen/Oxycodone 325-5 Mg Tab) 1 tab PO Q6H PRN PRN Reason: Pain (moderate 4-6) Polyethylene Glycol (Polyethylene Glycol 3350 Powder 17 Gm Packet) 17 gm PO DAILY PRN PRN Reason: Constipation Potassium Chloride (Potassium Chloride 10 Meq Tab.Er) 20 meq PO DAILY [facility] Last Admin: 03/24/21 09:58 Dose: 20 meq Documented by: Prochlorperazine Maleate (Prochlorperazine 5 Mg Tab) 10 mg PO QID PRN PRN Reason: Nausea/Vomiting Senna/Docusate Sodium (Docusate Sodium/Sennosides 50-8.6 Mg Tab) 1 tab PO DAILY PRN PRN Reason: Constipation Sodium Chloride (Sodium Chloride 0.9% 10 Ml Syringe) 10 ml FLUSH Q8HR PRN PRN Reason: keep vein open Discontinued Medications Ceftriaxone Sodium (Ceftriaxone 2 Gm Vial) 2 gm IVPUSH ONETIME ONE Stop: 03/23/21 18:44 Last Admin: 03/23/21 19:39 Dose: 2 gm Documented by: Sodium Chloride (Normal Saline) 100 mls @ 200 mls/hr IV ASDIRECTED [facility] Last Admin: 03/23/21 21:00 Dose: 200 mls/hr Documented by: Sodium Chloride (Normal Saline) 500 mls @ 75 mls/hr IV ASDIRECTED [facility] Stop: 03/24/21 02:33 Last Admin: 03/23/21 23:10 Dose: 75 mls/hr Documented by: Magnesium Sulfate 2 gm/ Premix 50 mls @ 25 mls/hr IV ONETIME ONE Stop: 03/24/21 00:32 Last Admin: 03/23/21 23:10 Dose: 25 mls/hr Documented by: Iopamidol (Iopamidol 755 Mg/Ml 75 Ml Bottle) 75 ml IVPUSH ONETIME ONE Stop: 03/23/21 21:12 Last Admin: 03/23/21 21:00 Dose: 75 ml Documented by: Lidocaine HCl (Lidocaine 2% Jelly 5 Ml Tube) 5 ml TOP ONETIME ONE Stop: 03/23/21 20:17 Last Admin: 03/23/21 19:55 Dose: 5 ml Documented by: - Exam Quality Assessment: Supplemental Oxygen, Urine Catheter, Skin Breakdown Urinary Catheter Total Time: 0Days 15Hours General: Alert, Oriented, Mild Distress, Other (patient drowsy. more responsive today than yesterday. very weak) Neck: Supple Lungs: Rales, Other (mild increased respiratory effort. ) Cardiovascular: Regular Rate, Irregular Rhythm GI/Abdominal Exam: Normal Bowel Sounds, Soft, Non-Tender (Male) Exam: Deferred Extremities: Pedal Edema (1+ pretibial and ankle edema. slightly worse from yesterday), Pallor Skin: Warm, Dry, Intact Wound/Incisions: Other (percutaneous cholecystostomy drain) Psy/Mental Status: Alert - Patient Data Result Diagrams: 03/26/21 13:00 03/26/21 13:00 Sepsis Event Note - Evaluation Sepsis Screening Result: No Definite Risk - Focused Exam Vital Signs: Vital Signs Temp Pulse Pulse Resp BP BP Pulse Ox 03/24/21 10:01 95 130/57 L 03/24/21 09:00 03/24/21 06:39 97.5 F 107 H 24 H 109/47 L 90 L 03/24/21 02:57 97.9 F 97 24 H 125/65 89 L Pulse Ox 03/24/21 10:01 03/24/21 09:00 90 L 03/24/21 06:39 03/24/21 02:57 - Problem List & Annotations (1) Acute and chronic respiratory failure with hypoxia SNOMED Code(s): 92490271, 993772421 Code(s): J96.21 - ACUTE AND CHRONIC RESPIRATORY FAILURE WITH HYPOXIA S tatus: Acute Current Visit: Yes (2) Decreased urine output SNOMED Code(s): 691630190 Code(s): R34 - ANURIA AND OLIGURIA Status: Acute Current Visit: Yes (3) Urinary retention SNOMED Code(s): 760343798 Code(s): R33.9 - RETENTION OF URINE, UNSPECIFIED Status: Acute Current Visit: Yes (4) Pancreatic mass SNOMED Code(s): 682849660 Code(s): K86.89 - OTHER SPECIFIED DISEASES OF PANCREAS Status: Acute Cur rent Visit: No (5) Physical deconditioning SNOMED Code(s): 00212554261016 Code(s): R53.81 - OTHER MALAISE Status: Acute Current Visit: No (6) Rupture of gallbladder SNOMED Code(s): 15523988 Code(s): K82.2 - PERFORATION OF GALLBLADDER Status: Acute Current Visit: No (7) Septic shock SNOMED Code(s): 88274320 Code(s): A41.9 - SEPSIS, UNSPECIFIED ORGANISM; R65.21 - SEVERE SEPSIS WITH SEPTIC SHOCK Status: Acute Current Visit: No (8) Thrombocytopenia SNOMED Code(s): 936056196 Code(s): D69.6 - THROMBOCYTOPENIA, UNSPECIFIED Status: Acute Current Visit: No - Problem List Review Problem List Initiated/Reviewed/Updated: Yes - My Orders Last 24 Hours: My Active Orders 03/23/21 18:39 Patient Status [ADT] Routine Height and Weight [RC] 07 Oxygen Therapy [RC] DAILY Up With Assistance [RC] DAILY Urinary Catheter Assessment [RC] Vital Signs [RC] 03,07,11,15,19,23 Sodium Chloride 0.9% [Saline Flush] 10 ml FLUSH Q8HR PRN Saline Lock Insert [OM.PC] Routine Resuscitation Status Routine EKG 12 Lead [EK] Stat 03/23/21 18:41 Cardiac Monitoring [RC] 03,07,11,15,19,23 Intake and Output [RC] 06,14,22 08/07/21 18:45 Thayer Catheter Insertion [Insert Urinary Catheter] [OM.PC] Q24H 03/23/21 19:52 Acetaminophen [TylenoL] 650 mg PO Q4H PRN Acetaminophen/oxyCODONE [Percocet 325-5 MG] 1 tab PO Q6H PRN Prochlorperazine [Compazine] 10 mg PO QID PRN bisacodyL [Dulcolax] 10 mg RECTAL DAILY PRN polyethylene glycoL 3350 [MiraLAX] 17 gm PO DAILY PRN 03/23/21 20:16 Docusate Sodium/Sennosides [Senna Plus] 1 tab PO DAILY PRN 03/23/21 21:00 Metoprolol Tartrate [Lopressor] 12.5 mg PO BID Mirtazapine [Remeron] 7.5 mg PO BEDTIME 03/24/21 03:28 Communication Order [RC] 03/24/21 03:31 Communication Order [RC] 03/24/21 03:33 Communication Order [RC] 03/24/21 07:31 Dietary Supplements [RC] TIDMEALS RT Incentive Spirometry [RC] Q1HWA 03/24/21 07:33 Atropine [Atropine 0.1 MG/ML] See Dose Instructions IVPUSH ASDIRECTED PRN EPINEPHrine [EPINEPHrine 1:10,000] 1 mg IVPUSH ASDIRECTED PRN Lidocaine 2% [Xylocaine 2%] See Dose Instructions IVPUSH ASDIRECTED PRN Nitroglycerin [Nitrostat] 0.4 mg SL ASDIRECTED PRN 03/24/21 09:00 Ascorbic Acid [Vitamin C] 1,000 mg PO DAILY Cholecalciferol (Vitamin D3) [Vitamin D3] 25 mcg PO DAILY Fluticasone/Umeclidin/Vilanter 1 puff INH DAILY Folic Acid 1 mg PO DAILY Furosemide [Lasix] 20 mg PO DAILY Nicotine [Habitrol] 21 mg TRDERM DAILY Potassium Chloride [Klor-Con 10] 20 meq PO DAILY 03/24/21 10:27 CBC WITH AUTO DIFF [HEME] Routine COMPREHENSIVE METABOLIC PN,CMP [CHEM] Routine MAGNESIUM [CHEM] Routine - Plan Plan:: History of present illness: This is a 75 year old male with a significant PMH of Metastatic non-small cell lung cancer on chemotherapy, pancreatic mass, COPD, thrombocytopenia, atrial fibrillation/flutter not on anticoagulation admitted to [facility] 03/22/21 initially swing bed for PT/OT services. Patient was hospitalized at [facility] 03/15/21 - 03/22/21 for septic shock secondary to perforated gallbladder, gram negative bacteremia with E. Coli on blood cultures. On admission to [facility] he was started on Zosyn, switched to Ceftriaxone 03/19. Discharged on oral Vantin 200 mg 2 times a day for 8 days (total 14 days) given bacteremia. He underwent cholecystectomy with drainage tube placement on 03/16/21. limited drainage output per records. Patient was admitted swing bed for rehabilitative services however changed from swing bed status to inpatient on 03/23/21 for multiple acute concerns including worsening hypoxia, decreased urine output. Hospitalization Course: 03/22/21- Patient arrived from [facility] late evening and admitted to swing bed at [facility] 03/23/21 Patient ill appearing on hospital rounds 03/23/21. He is lying in bed with limited interaction and slow to respond to verbal stimuli. He is fatigued and profoundly weak. Lengthy discussion had with patient regarding Full code status with patient desiring to change to a DRN status with family in agreement. Interval update 03/23/21: Patient switched from SB status to inpatient status due to acute change in clinical status with additional noted concerns of decreased urine output (with no urine output noted since the evening prior) and worsening respiratory status with increasing oxygen requirements. Discussed had with patient/family who wish to continue full treatment. Initial bladder ultrasound showed only 50 cc with limited oral intake. Indwelling catheter placed for accurate I/O. patient started on NS 75ml for 4 hours with improved urine output. Labs, chest x-ray, and ct of the chest done. 03/24/21- patient with improved urine output with approximately 430mL out overnight. Patient is up 2 pounds in weight from lastnight and 4 total from admission. respiratory status worse this AM. patient requiring 5L supplemental oxygen. baseline requirement 2-3L as of recent. Hospitalization problems: # Acute on chronic hypoxic respiratory failure # COPD - on home oxygen with 2-3 L continuously however with increasing oxygen requirements requiring up to 5 L now - on Trelegy - - Chest x-ray showing infiltrate, atelectasis, and effusion of left lung base ? pneumonia. PE a consideration - CTA done with no evidence of PE. No pneumonia as questioned on x-ray. mild pleural reaction bilaterally. atelectasis Left lower lobe. # Acute on Chronic diastolic CHF - BNP 400s - one time dose IV lasix 20mg which will hopefully help pulmonary status as well. then resume home PO 20mg dose - daily weights. - strict I/O - ECHO 01/17/21 normal LV systolic function. EF 65%. grade 1 diastolic dysfunction. no significant valvular abnormalities. # hypomagnesemia - IV replacement 03/23/21. - recheck normalized today at 2.0 - will resume PO supplementation # Decreased urine output # urinary retention - indwelling catheter for accurate I/O - renal function normal - improved output with gentle fluid administration at 75/hr for 4 hours overnight. # Perforated gallbladder- -s/p cholecystectomy with percutaneous cholecystostomy drain in place. - limited drainage output (5ml) - IR recommendation to keep drain usually for 6 weeks to have time to perform a tract before removal. # septic shock- secondary to above. Resolved # Gram-negative bacteremia- - E. coli blood cultures pansensitive. - started on Cefpodoxime (Vantin) BID for an additional 8 days (14 total days) at discharge. Cefpodoxime is not available locally will switch to Cefdinir alternative 3rd generation cephalosporin available in facility. - given change in patient status. Cefdinir held and 2gm IV Rocephin given 03/23/21. start Cefdinir today 03/24/21 # Thrombocytopenia- - acute on chronic secondary to chemotherapy. - stable. continue to monitor - No report of easy bleeding. # Non-small cell lung cancer of the RUL- - metastasis to the pancreas, left adrenal gland, left abdominal wall site- - s/p radiation therapy to the pancreatic mass. - s/p chemo with carboplatin + taxol x 4 cycles. Added keytruda with cycle 3. 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 - followed by oncology at [facility]. Chronic conditions # anemia- secondary to chemo. 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 planned for during hospitalization however due to pulmonary status GI Recommend outpatient ERCP in one month. # tobacco use disorder- NRT # Hypokalemia- 20 MeQ K+ daily. #Atrial fibrillation:5started low-dose ixmrkrbon64.5mg twice a day which was continued at discharge. No anticoagulation due to thrombocytopenia. # Chronic diastolic CHF- on lasix 20mg with potassium supplement. # dilatation of the aorta- noted on ECHO. measuring 41.0 mm # Nausea- compazine PRN # Constipation- miralax daily. Senna PRN. # insomnia- remeron MISC meds/supplements- calcium, vitamin D, Folic acid. #FEN: mechanical soft diet. (Dentures were lost during hospitalization in [place]. Patient reports difficulty with chewing as a result. Dietary to work with allan villatoro with meal selection. IV fluids SL due to concern of mild overload CODE STATUS: DNR/DNI 03/23/21 Lengthy discussion had with patient with present at bedside. Also ca lled both daughters Hawa (DPTHAD) and Lina to review patient wishes and code status. Patient and family collectively agree to change patient from a Full code and DNR. Patient states that he does not wish to have CPR, intubation or any artificial nutrition. For now we will continue patient as a full treatment. However did discuss with patient his wishes for continued treatment and he states he is unsure. POLST form reviewed with patient and signed by patient with presents at bedside. Disposition: - Continue inpatient status for acute on chronic hypoxic respiratory failure with increasing oxygen requirements - Continue omnicef for bacteremia for a total of 7 additional days (14 total days) - resume PO magnesium replacement - recheck labs in the AM - continue close follow-up/monitoring Follow-up: - 04/01/21- Oncology follow-up with Dr. Mancini. Chemotherapy. - outpatient ERCP in approximately 1 month with stent change (referral placed at discharge, scheduled date pending) - Outpatient IR follow-up for drain removal in approximately 6 weeks (referral placed at discharge, scheduled date pending)
[2021-03-24 13:24] LABS: CHLORIDE,CL 98 mmol/L (98-107); SODIUM,NA 136 mmol/L (136-145)
[2021-03-24] MEDS ORDERED: Furosemide 40 MG/4 ML VIAL IVPUSH ONE (13:31)
[2021-03-24] MEDS: Magnesium Oxide 500 MG Tab PO SCH ×2 (13:48→21:48)
[2021-03-24] MEDS: Cefdinir 300 MG Cap PO SCH (21:48)
[2021-03-24] MEDS: Sodium Chloride 0.9% 10 ML Syringe FLUSH PRN (21:48)
[2021-03-24] MEDS: Mirtazapine 15 MG Tab PO SCH (21:50)
[2021-03-25] MEDS: Cefdinir 300 MG Cap PO SCH ×2 (09:30→20:23)
[2021-03-25] MEDS: Furosemide 20 MG Tab PO SCH (09:30)
[2021-03-25] MEDS: Folic Acid 1 MG Tab PO SCH (09:30)
[2021-03-25] MEDS: Ascorbic Acid 500 MG Tab PO SCH (09:30)
[2021-03-25] MEDS: Cholecalciferol (Vitamin D3) 25 MCG Tab PO SCH (09:30)
[2021-03-25] MEDS: Potassium Chloride 10 MEQ Tab.ER PO SCH (09:30)
[2021-03-25] MEDS: Magnesium Oxide 500 MG Tab PO SCH ×2 (09:30→20:22)
[2021-03-25] MEDS ORDERED: Sodium Chloride 0.9% 1,000 ML ONE (09:47)
[2021-03-25 09:57] LABS: CHLORIDE,CL 98 mmol/L (98-107); SODIUM,NA 137 mmol/L (136-145)
[2021-03-25] MEDS ORDERED: Sodium Chloride 0.9% 1,000 ML IV ONE (10:11)
[2021-03-25] MEDS: Metoprolol Tartrate 25 MG Tab PO SCH ×2 (10:30→20:23)
[2021-03-25] MEDS: Nicotine 21 MG/24 Hr Patch TRDERM SCH (11:25)
--- NOTE | 2021-03-25 12:46 | PCM.PN ---
- General Info Date of Service: 03/25/21 Functional Status: Reports: Pain Controlled, Urinating - Review of Systems General: Reports: Weakness HEENT: Reports: No Symptoms Pulmonary: Reports: Shortness of Breath. Denies: Wheezing Cardiovascular: Denies: Chest Pain, Palpitations Gastrointestinal: Denies: Abdominal Pain Musculoskeletal: Reports: No Symptoms Neurological: Reports: Weakness. Denies: Confusion Psychiatric: Denies: Confusion - Patient Data Vitals - Most Recent: Last Vital Signs Temp 97.4 F 03/25/21 11:00 Pulse 94 03/25/21 11:00 Resp 16 03/25/21 11:00 BP 96/56 L 03/25/21 11:00 Pulse Ox 91 L 03/25/21 11:00 Weight - Most Recent: 163 lb 9.6 oz I&O - Last 24 Hours: Intake & Output 03/24/21 03/25/21 03/25/21 22:59 06:59 14:59 Intake Total 0 0 Output Total 675 120 Balance -675 -120 Lab Results Last 24 Hours: Laboratory Results - last 24 hr 03/24/21 03/24/21 03/25/21 Range/Units 12:55 12:55 07:50 WBC 10.85 H 10.85 H (5.00-10.00) 10^3/uL RBC 2.16 L 2.34 L (4.50-6.00) 10^6/uL Hgb 7.5 L 8.0 L (13.0-17.0) g/dL Hct 23.5 L 25.4 L (40.0-52.0) % MCV 108.8 H D 108.5 H (82.0-92.0) fL MCH 34.7 H 34.2 H (27.0-31.0) pg MCHC 31.9 L 31.5 L (32.0-36.0) g/dL RDW 18.3 H 18.8 H (11.5-14.5) % Plt Count 107 L 142 L (150-400) 10^3/uL MPV 11.3 H 12.1 H (7.4-10.4) fL Immature Gran % (Auto) 1.2 (0.0-5.0) % Neut % (Auto) 88.3 H (50.0-70.0) % Lymph % (Auto) 5.6 L (20.0-40.0) % [place] % (Auto) 4.5 (2.0-8.0) % Eos % (Auto) 0.3 L (1.0-3.0) % Baso % (Auto) 0.1 (0.0-1.0) % Neut # (Auto) 9.58 H (2.50-7.00) 10^3/uL Lymph # (Auto) 0.61 L (1.00-4.00) 10^3/uL [place] # (Auto) 0.49 (0.10-0.80) 10^3/uL Eos # (Auto) 0.03 L (0.10-0.30) 10^3/uL Baso # (Auto) 0.01 (0.00-0.10) 10^3/uL Immature Gran # (Auto) 0.13 (0.00-0.50) 10^3/uL Add Manual Diff Yes Neutrophils % (Manual) 93 H (50-70) % Band Neutrophils % 1 L (4-12) % Lymphocytes % (Manual) 3 L (20-40) % Monocytes % (Manual) 3 (2-8) % Platelet Estimate Decreased Polychromasia Few Macrocytosis Moderate 1+ slight Sodium 136 (136-145) mmol/L Potassium 3.9 (3.5-5.1) mmol/L Chloride 98 (98-107) mmol/L Carbon Dioxide 33.9 H (21.0-32.0) mmol/L Anion Gap 8.0 (5-15) mmol/L BUN 10 (7-18) mg/dL Creatinine 0.50 L (0.51-1.17) mg/dL Est Cr Clr Drug Dosing 119.35 mL/min Estimated GFR (MDRD) > 60 mL/min Glucose 102 (70-140) mg/dL Calcium 7.4 L (8.7-10.3) mg/dL Magnesium 2.0 (1.8-2.4) mg/dL Total Bilirubin 0.1 L (0.2-1.0) mg/dL AST 26 (15-37) U/L ALT 15 (14-63) U/L Alkaline Phosphatase 95 (46-116) U/L Troponin I High Sens (0-76.000) pg/mL B-Natriuretic Peptide (0-100) pg/mL Total Protein 5.1 L (6.4-8.2) g/dL Albumin 1.37 L (3.40-5.00) g/dL 03/25/21 03/25/21 Range/Units 07:50 07:50 WBC (5.00-10.00) 10^3/uL RBC (4.50-6.00) 10^6/uL Hgb (13.0-17.0) g/dL Hct (40.0-52.0) % MCV (82.0-92.0) fL MCH (27.0-31.0) pg MCHC (32.0-36.0) g/dL RDW (11.5-14.5) % Plt Count (150-400) 10^3/uL MPV (7.4-10.4) fL Immature Gran % (Auto) (0.0-5.0) % Neut % (Auto) (50.0-70.0) % Lymph % (Auto) (20.0-40.0) % [place] % (Auto) (2.0-8.0) % Eos % (Auto) (1.0-3.0) % Baso % (Auto) (0.0-1.0) % Neut # (Auto) (2.50-7.00) 10^3/uL Lymph # (Auto) (1.00-4.00) 10^3/uL [place] # (Auto) (0.10-0.80) 10^3/uL Eos # (Auto) (0.10-0.30) 10^3/uL Baso # (Auto) (0.00-0.10) 10^3/uL Immature Gran # (Auto) (0.00-0.50) 10^3/uL Add Manual Diff Neutrophils % (Manual) (50-70) % Band Neutrophils % (4-12) % Lymphocytes % (Manual) (20-40) % Monocytes % (Manual) (2-8) % Platelet Estimate Polychromasia Macrocytosis Sodium 137 (136-145) mmol/L Potassium 4.0 (3.5-5.1) mmol/L Chloride 98 (98-107) mmol/L Carbon Dioxide 34.0 H (21.0-32.0) mmol/L Anion Gap 9.0 (5-15) mmol/L BUN 10 (7-18) mg/dL Creatinine 0.49 L (0.51-1.17) mg/dL Est Cr Clr Drug Dosing 121.78 mL/min Estimated GFR (MDRD) > 60 mL/min Glucose 91 (70-140) mg/dL Calcium 7.4 L (8.7-10.3) mg/dL Magnesium 1.8 (1.8-2.4) mg/dL Total Bilirubin (0.2-1.0) mg/dL AST (15-37) U/L ALT (14-63) U/L Alkaline Phosphatase (46-116) U/L Troponin I High Sens 17.100 (0-76.000) pg/mL B-Natriuretic Peptide 309 H (0-100) pg/mL Total Protein (6.4-8.2) g/dL Albumin (3.40-5.00) g/dL Med Orders - Current: Current Medications Acetaminophen (Acetaminophen 325 Mg Tab) 650 mg PO Q4H PRN PRN Reason: Pain Last Admin: 03/23/21 23:55 Dose: 650 mg Documented by: Ascorbic Acid (Ascorbic Acid 500 Mg Tab) 1,000 mg PO DAILY [facility] Last Admin: 03/24/21 09:58 Dose: 1,000 mg Documented by: Atropine Sulfate (Atropine 0.1 Mg/Ml 10 Ml Syringe) 0 mg IVPUSH ASDIRECTED PRN PRN Reason: Heart. Bisacodyl (Bisacodyl 10 Mg Supp) 10 mg RECTAL DAILY PRN PRN Reason: Constipation Cefdinir (Cefdinir 300 Mg Cap) 300 mg PO BID [facility] Stop: 03/31/21 21:01 Last Admin: 03/24/21 21:48 Dose: 300 mg Documented by: Cholecalciferol (Cholecalciferol (Vitamin D3) 25 Mcg Tab) 25 mcg PO DAILY [facility] Last Admin: 03/24/21 09:59 Dose: 25 mcg Documented by: Epinephrine HCl (Epinephrine 1:10,000 1 Mg/10 Ml Syringe) 1 mg IVPUSH ASDIRECTED PRN PRN Reason: Heart. Folic Acid (Folic Acid 1 Mg Tab) 1 mg PO DAILY [facility] Last Admin: 03/24/21 09:59 Dose: 1 mg Documented by: Furosemide (Furosemide 20 Mg Tab) 20 mg PO DAILY [facility] Last Admin: 03/24/21 09:59 Dose: 20 mg Documented by: Lidocaine HCl (Lidocaine 2% 100 Mg/5 Ml Syringe) 0 mg IVPUSH ASDIRECTED PRN PRN Reason: Heart. Magnesium Oxide (Magnesium Oxide 500 Mg Tab) 250 mg PO BID [facility] Last Admin: 03/24/21 21:48 Dose: 250 mg Documented by: Metoprolol Tartrate (Metoprolol Tartrate 25 Mg Tab) 12.5 mg PO BID [facility] Last Admin: 03/25/21 10:30 Dose: Not Given Documented by: Mirtazapine (Mirtazapine 15 Mg Tab) 7.5 mg PO BEDTIME [facility] Last Admin: 03/24/21 21:50 Dose: 7.5 mg Documented by: Nicotine (Nicotine 21 Mg/24 Hr Patch) 21 mg TRDERM DAILY [facility] Last Admin: 03/25/21 11:25 Dose: Not Given Documented by: Nitroglycerin (Nitroglycerin 0.4 Mg Tab.Sl) 0.4 mg SL ASDIRECTED PRN PRN Reason: Heart. Fluticasone/Umeclidin/Vilanter 28 Puff/Inhaler Own Med 1 puff INH DAILY [facility] Last Admin: 03/24/21 10:22 Dose: 1 puff Documented by: Oxycodone/Acetaminophen (Acetaminophen/Oxycodone 325-5 Mg Tab) 1 tab PO Q6H PRN PRN Reason: Pain (moderate 4-6) Polyethylene Glycol (Polyethylene Glycol 3350 Powder 17 Gm Packet) 17 gm PO DAILY PRN PRN Reason: Constipation Potassium Chloride (Potassium Chloride 10 Meq Tab.Er) 20 meq PO DAILY [facility] Last Admin: 03/24/21 09:58 Dose: 20 meq Documented by: Prochlorperazine Maleate (Prochlorperazine 5 Mg Tab) 10 mg PO QID PRN PRN Reason: Nausea/Vomiting Senna/Docusate Sodium (Docusate Sodium/Sennosides 50-8.6 Mg Tab) 1 tab PO DAILY PRN PRN Reason: Constipation Sodium Chloride (Sodium Chloride 0.9% 10 Ml Syringe) 10 ml FLUSH Q8HR PRN PRN Reason: keep vein open Last Admin: 03/24/21 21:48 Dose: 10 ml Documented by: Discontinued Medications Ceftriaxone Sodium (Ceftriaxone 2 Gm Vial) 2 gm IVPUSH ONETIME ONE Stop: 03/23/21 18:44 Last Admin: 03/23/21 19:39 Dose: 2 gm Documented by: Furosemide (Furosemide 40 Mg/4 Ml Vial) 20 mg IVPUSH NOW ONE Stop: 03/24/21 13:32 Last Admin: 03/24/21 13:48 Dose: 20 mg Documented by: Sodium Chloride (Normal Saline) 100 mls @ 200 mls/hr IV ASDIRECTED [facility] Last Admin: 03/23/21 21:00 Dose: 200 mls/hr Documented by: Sodium Chloride (Normal Saline) 500 mls @ 75 mls/hr IV ASDIRECTED [facility] Stop: 03/24/21 02:33 Last Admin: 03/23/21 23:10 Dose: 75 mls/hr Documented by: Magnesium Sulfate 2 gm/ Premix 50 mls @ 25 mls/hr IV ONETIME ONE Stop: 03/24/21 00:32 Last Admin: 03/23/21 23:10 Dose: 25 mls/hr Documented by: Sodium Chloride (Normal Saline) Confirm Administered Dose 1,000 mls @ as directed .ROUTE .STK-MED ONE Stop: 03/25/21 09:48 Last Admin: 03/25/21 11:26 Dose: Not Given Documented by: Sodium Chloride (Normal Saline) 1,000 mls @ 999 mls/hr IV .BOLUS ONE Stop: 03/25/21 11:11 Iopamidol (Iopamidol 755 Mg/Ml 75 Ml Bottle) 75 ml IVPUSH ONETIME ONE Stop: 03/23/21 21:12 Last Admin: 03/23/21 21:00 Dose: 75 ml Documented by: Lidocaine HCl (Lidocaine 2% Jelly 5 Ml Tube) 5 ml TOP ONETIME ONE Stop: 03/23/21 20:17 Last Admin: 03/23/21 19:55 Dose: 5 ml Documented by: - Exam Quality Assessment: Supplemental Oxygen, Urine Catheter, Skin Breakdown Urinary Catheter Total Time: 1Days 16Hours General: Alert, Mild Distress Neck: No JVD Lungs: Crackles (very slight). No: Normal Respiratory Effort Cardiovascular: Regular Rate, Regular Rhythm, Irregular Rhythm GI/Abdominal Exam: Normal Bowel Sounds, Soft, Other (percutaneous cholecystostomy drain--patent ) Back Exam: No: CVA Tenderness (L), CVA Tenderness (R) Extremities: Pedal Edema (slight arouind ankles. ) Peripheral Pulses: 2+: Radial (L), Radial (R) Skin: Warm, Dry, Intact Neurological: Normal Speech Psy/Mental Status: Alert. No: Anxious - Patient Data Lab Results Last 24 hrs: Laboratory Results - last 24 hr 03/24/21 03/24/21 03/25/21 Range/Units 12:55 12:55 07:50 WBC 10.85 H 10.85 H (5.00-10.00) 10^3/uL RBC 2.16 L 2.34 L (4.50-6.00) 10^6/uL Hgb 7.5 L 8.0 L (13.0-17.0) g/dL Hct 23.5 L 25.4 L (40.0-52.0) % MCV 108.8 H D 108.5 H (82.0-92.0) fL MCH 34.7 H 34.2 H (27.0-31.0) pg MCHC 31.9 L 31.5 L (32.0-36.0) g/dL RDW 18.3 H 18.8 H (11.5-14.5) % Plt Count 107 L 142 L (150-400) 10^3/uL MPV 11.3 H 12.1 H (7.4-10.4) fL Immature Gran % (Auto) 1.2 (0.0-5.0) % Neut % (Auto) 88.3 H (50.0-70.0) % Lymph % (Auto) 5.6 L (20.0-40.0) % [place] % (Auto) 4.5 (2.0-8.0) % Eos % (Auto) 0.3 L (1.0-3.0) % Baso % (Auto) 0.1 (0.0-1.0) % Neut # (Auto) 9.58 H (2.50-7.00) 10^3/uL Lymph # (Auto) 0.61 L (1.00-4.00) 10^3/uL [place] # (Auto) 0.49 (0.10-0.80) 10^3/uL Eos # (Auto) 0.03 L (0.10-0.30) 10^3/uL Baso # (Auto) 0.01 (0.00-0.10) 10^3/uL Immature Gran # (Auto) 0.13 (0.00-0.50) 10^3/uL Add Manual Diff Yes Neutrophils % (Manual) 93 H (50-70) % Band Neutrophils % 1 L (4-12) % Lymphocytes % (Manual) 3 L (20-40) % Monocytes % (Manual) 3 (2-8) % Platelet Estimate Decreased Polychromasia Few Macrocytosis Moderate 1+ slight Sodium 136 (136-145) mmol/L Potassium 3.9 (3.5-5.1) mmol/L Chloride 98 (98-107) mmol/L Carbon Dioxide 33.9 H (21.0-32.0) mmol/L Anion Gap 8.0 (5-15) mmol/L BUN 10 (7-18) mg/dL Creatinine 0.50 L (0.51-1.17) mg/dL Est Cr Clr Drug Dosing 119.35 mL/min Estimated GFR (MDRD) > 60 mL/min Glucose 102 (70-140) mg/dL Calcium 7.4 L (8.7-10.3) mg/dL Magnesium 2.0 (1.8-2.4) mg/dL Total Bilirubin 0.1 L (0.2-1.0) mg/dL AST 26 (15-37) U/L ALT 15 (14-63) U/L Alkaline Phosphatase 95 (46-116) U/L Troponin I High Sens (0-76.000) pg/mL B-Natriuretic Peptide (0-100) pg/mL Total Protein 5.1 L (6.4-8.2) g/dL Albumin 1.37 L (3.40-5.00) g/dL 03/25/21 03/25/21 Range/Units 07:50 07:50 WBC (5.00-10.00) 10^3/uL RBC (4.50-6.00) 10^6/uL Hgb (13.0-17.0) g/dL Hct (40.0-52.0) % MCV (82.0-92.0) fL MCH (27.0-31.0) pg MCHC (32.0-36.0) g/dL RDW (11.5-14.5) % Plt Count (150-400) 10^3/uL MPV (7.4-10.4) fL Immature Gran % (Auto) (0.0-5.0) % Neut % (Auto) (50.0-70.0) % Lymph % (Auto) (20.0-40.0) % [place] % (Auto) (2.0-8.0) % Eos % (Auto) (1.0-3.0) % Baso % (Auto) (0.0-1.0) % Neut # (Auto) (2.50-7.00) 10^3/uL Lymph # (Auto) (1.00-4.00) 10^3/uL [place] # (Auto) (0.10-0.80) 10^3/uL Eos # (Auto) (0.10-0.30) 10^3/uL Baso # (Auto) (0.00-0.10) 10^3/uL Immature Gran # (Auto) (0.00-0.50) 10^3/uL Add Manual Diff Neutrophils % (Manual) (50-70) % Band Neutrophils % (4-12) % Lymphocytes % (Manual) (20-40) % Monocytes % (Manual) (2-8) % Platelet Estimate Polychromasia Macrocytosis Sodium 137 (136-145) mmol/L Potassium 4.0 (3.5-5.1) mmol/L Chloride 98 (98-107) mmol/L Carbon Dioxide 34.0 H (21.0-32.0) mmol/L Anion Gap 9.0 (5-15) mmol/L BUN 10 (7-18) mg/dL Creatinine 0.49 L (0.51-1.17) mg/dL Est Cr Clr Drug Dosing 121.78 mL/min Estimated GFR (MDRD) > 60 mL/min Glucose 91 (70-140) mg/dL Calcium 7.4 L (8.7-10.3) mg/dL Magnesium 1.8 (1.8-2.4) mg/dL Total Bilirubin (0.2-1.0) mg/dL AST (15-37) U/L ALT (14-63) U/L Alkaline Phosphatase (46-116) U/L Troponin I High Sens 17.100 (0-76.000) pg/mL B-Natriuretic Peptide 309 H (0-100) pg/mL Total Protein (6.4-8.2) g/dL Albumin (3.40-5.00) g/dL Result Diagrams: 03/25/21 07:50 03/25/21 07:50 Sepsis Event Note - Evaluation Sepsis Screening Result: No Definite Risk - Focused Exam Vital Signs: Vital Signs Temp Pulse Pulse Resp BP BP BP 03/25/21 11:00 97.4 F 94 16 96/56 L 03/25/21 10:30 72/48 L 03/25/21 09:23 96 03/25/21 09:21 03/25/21 06:04 98.3 F 93 20 103/40 L Pulse Ox Pulse Ox 03/25/21 11:00 91 L 03/25/21 10:30 03/25/21 09:23 03/25/21 09:21 94 L 03/25/21 06:04 97 - Problem List Review Problem List Initiated/Reviewed/Updated: Yes - Plan Plan:: History of present illness: This is a 75 year old male with a significant PMH of Metastatic non-small cell lung cancer on chemotherapy, pancreatic mass, COPD, thrombocytopenia, atrial fibrillation/flutter not on anticoagulation admitted to [facility] 03/22/21 initially swing bed for PT/OT services. Patient was hospitalized at [facility] 03/15/21 - 03/22/21 for septic shock secondary to perforated gallbladder, gram negative bacteremia with E. Coli on blood cultures. On admission to [facility] he was started on Zosyn, switched to Ceftriaxone 03/19. Discharged on oral Vantin 200 mg 2 times a day for 8 days (total 14 days) given bacteremia. He underwent cholecystectomy with drainage tube placement on 03/16/21. limited drainage output per records. Patient was admitted swing bed for rehabilitative services however changed from swing bed status to inpatient on 03/23/21 for multiple acute concerns including worsening hypoxia, decreased urine output. Hospitalization Course: 03/22/21- Patient arrived from [facility] late evening and admitted to swing bed at [facility] 03/23/21 Patient ill appearing on hospital rounds 03/23/21. He is lying in bed with limited interaction and slow to respond to verbal stimuli. He is fatigued and profoundly weak. Lengthy discussion had with patient regarding Full code status with patient desiring to change to a DRN status with family in agreement. Interval update 03/23/21: Patient switched from SB status to inpatient status due to acute change in clinical status with additional noted concerns of decreased urine output (with no urine output noted since the evening prior) and worsening respiratory status with increasing oxygen requirements. Discussed had with patient/family who wish to continue full treatment. Initial bladder ultrasound showed only 50 cc with limited oral intake. Indwelling catheter placed for accurate I/O. patient started on NS 75ml for 4 hours with improved urine output. Labs, chest x-ray, and ct of the chest done. 03/24/21- patient with improved urine output with approximately 430mL out overnight. Patient is up 2 pounds in weight from lastnight and 4 total from admission. respiratory status worse this AM. patient requiring 5L supplemental oxygen. baseline requirement 2-3L as of recent. 03/25/21; increased O2 requirrements with very low BP on rounds--improving with 250ml NS bolus. I/O: weight: down 2.5lbs from yesterday Hospitalization problems: # Acute on chronic hypoxic respiratory failure # COPD - on home oxygen with 2-3 L continuously however with increasing oxygen requirements requiring up to 5-6 L now - on Trelegy - Chest x-ray showing infiltrate, atelectasis, and effusion of left lung base ? pneumonia. PE a consideration - CTA done with no evidence of PE. No pneumonia as questioned on x-ray. mild pleural reaction bilaterally. atelectasis Left lower lobe. # Acute on Chronic diastolic CHF - BNP 400s - Wt down 2.5lbs from yesterday IV lasix yesterday - strict I/O - ECHO 01/17/21 normal LV systolic function. EF 65%. grade 1 diastolic dysfunction. no significant valvular abnormalities. # hypomagnesemia - IV replacement 03/23/21. - recheck normalized today at 2.0 - will resume PO supplementation # Decreased urine output # urinary retention - indwelling catheter for accurate I/O - renal function normal # Perforated gallbladder- -s/p cholecystectomy with percutaneous cholecystostomy drain in place. - limited drainage output (5ml) - IR recommendation to keep drain usually for 6 weeks to have time to perform a tract before removal. # septic shock- secondary to above. Resolved # Gram-negative bacteremia- - E. coli blood cultures pansensitive. - started on Cefpodoxime (Vantin) BID for an additional 8 days (14 total days) at discharge. Cefpodoxime is not available locally will switch to Cefdinir alternative 3rd generation cephalosporin available in facility. - given change in patient status. Cefdinir held and 2gm IV Rocephin given 03/23/21. start Cefdinir today 03/24/21 # Thrombocytopenia- - acute on chronic secondary to chemotherapy. - stable. continue to monitor - No report of easy bleeding. # Non-small cell lung cancer of the RUL- - metastasis to the pancreas, left adrenal gland, left abdominal wall site- - s/p radiation therapy to the pancreatic mass. - s/p chemo with carboplatin + taxol x 4 cycles. Added keytruda with cycle 3. 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 - followed by oncology at [facility]. Chronic conditions # anemia- secondary to chemo. 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 planned for during hospitalization however due to pulmonary status GI Recommend outpatient ERCP in one month. # tobacco use disorder- NRT # Hypokalemia- 20 MeQ K+ daily. #Atrial fibrillation:tarted low-dose [id number] twice a day which was continued at discharge. No anticoagulation due to thrombocytopenia. # Chronic diastolic CHF- on lasix 20mg with potassium supplement. # dilatation of the aorta- noted on ECHO. measuring 41.0 mm # Nausea- compazine PRN # Constipation- miralax daily. Senna PRN. # insomnia- remeron MISC meds/supplements- calcium, vitamin D, Folic acid. #FEN: mechanical soft diet. (Dentures were lost during hospitalization in [place]. Patient reports difficulty with chewing as a result. Dietary to work with patient with meal selection. IV fluids SL due to concern of mild overload CODE STATUS: DNR/DNI 03/23/21 Lengthy discussion had with patient with present at bedside. Also called both daughters Hawa (DPOA) and Lina to review patient wishes and code status. Patient and family collectively agree to change patient from a Full code and DNR. Patient states that he does not wish to have CPR, intubation or any artificial nutrition. For now we will continue patient as a full treatment. However did discuss with patient his wishes for continued treatment and he states he is unsure. POLST form reviewed with patient and signed by patient with presents at bedside. Disposition: - Continue inpatient status for acute on chronic hypoxic respiratory failure with increasing oxygen requirements - Continue omnicef for bacteremia for a total of 7 additional days (14 total days) - resume PO magnesium replacement - recheck labs in the AM - continue close follow-up/monitoring Follow-up: - 04/01/21- Oncology follow-up with Dr. Mancini. Chemotherapy. - outpatient ERCP in approximately 1 month with stent change (referral placed at discharge, scheduled date pending) - Outpatient IR follow-up for drain removal in approximately 6 weeks (referral placed at discharge, scheduled date pending) - patient with unexplained anemia, thrombocytopenia. labs reviewed showing a h istory of pancytopenia in 2019. consider further outpatient hematologic work-up depending on patient wishes.
[2021-03-25] MEDS ORDERED: Furosemide 20 MG Tab PO ONE (17:30)
[2021-03-25] MEDS: Mirtazapine 15 MG Tab PO SCH (20:24)
[2021-03-26] MEDS: FLUTICASONE INH SCH ×2 (01:31→08:30)
[2021-03-26] MEDS: VILANTER INH SCH ×2 (01:31→08:30)
[2021-03-26] MEDS: UMECLIDIN INH SCH ×2 (01:31→08:30)
[2021-03-26] MEDS: Metoprolol Tartrate 25 MG Tab PO SCH ×2 (08:24→20:24)
[2021-03-26] MEDS: Cefdinir 300 MG Cap PO SCH (08:24)
[2021-03-26] MEDS: Ascorbic Acid 500 MG Tab PO SCH (08:25)
[2021-03-26] MEDS: Cholecalciferol (Vitamin D3) 25 MCG Tab PO SCH (08:25)
[2021-03-26] MEDS: Potassium Chloride 10 MEQ Tab.ER PO SCH (08:25)
[2021-03-26] MEDS: Magnesium Oxide 500 MG Tab PO SCH ×2 (08:27→20:23)
[2021-03-26] MEDS: Folic Acid 1 MG Tab PO SCH (08:27)
[2021-03-26] MEDS: Nicotine 21 MG/24 Hr Patch TRDERM SCH (08:28)
--- NOTE | 2021-03-26 11:38 | PCM.PN ---
- General Info Date of Service: 03/26/21 Functional Status: Reports: Pain Controlled, Tolerating Diet (Ate banana this morning) - Review of Systems General: Reports: Weakness HEENT: Denies: Headaches, Visual Changes Pulmonary: Reports: Shortness of Breath. Denies: Sputum Cardiovascular: Denies: Palpitations, Edema Gastrointestinal: Reports: Diarrhea. Denies: Nausea, Vomiting Skin: Reports: Pallor Neurological: Reports: Weakness. Denies: Confusion, Paresthesia, Tremors - Patient Data Vitals - Most Recent: Last Vital Signs Temp 97.6 F 03/26/21 06:09 Pulse 86 03/26/21 08:24 Resp 28 H 03/26/21 06:09 BP 140/56 L 03/26/21 08:24 Pulse Ox 90 L 03/26/21 09:00 Weight - Most Recent: 158 lb 3.2 oz I&O - Last 24 Hours: Intake & Output 03/25/21 03/26/21 03/26/21 22:59 06:59 14:59 Intake Total 100 150 Output Total 100 130 Balance 0 20 Med Orders - Current: Current Medications Acetaminophen (Acetaminophen 325 Mg Tab) 650 mg PO Q4H PRN PRN Reason: Pain Last Admin: 03/23/21 23:55 Dose: 650 mg Documented by: Ascorbic Acid (Ascorbic Acid 500 Mg Tab) 1,000 mg PO DAILY [facility] Last Admin: 03/26/21 08:25 Dose: 1,000 mg Documented by: Atropine Sulfate (Atropine 0.1 Mg/Ml 10 Ml Syringe) 0 mg IVPUSH ASDIRECTED PRN PRN Reason: Heart. Bisacodyl (Bisacodyl 10 Mg Supp) 10 mg RECTAL DAILY PRN PRN Reason: Constipation Cefdinir (Cefdinir 300 Mg Cap) 300 mg PO BID [facility] Stop: 03/31/21 21:01 Last Admin: 03/26/21 08:24 Dose: 300 mg Documented by: Cholecalciferol (Cholecalciferol (Vitamin D3) 25 Mcg Tab) 25 mcg PO DAILY [facility] Last Admin: 03/26/21 08:25 Dose: 25 mcg Documented by: Epinephrine HCl (Epinephrine 1:10,000 1 Mg/10 Ml Syringe) 1 mg IVPUSH ASDIREC KESHAV PRN PRN Reason: Heart. Folic Acid (Folic Acid 1 Mg Tab) 1 mg PO DAILY [facility] Last Admin: 03/26/21 08:27 Dose: 1 mg Documented by: Furosemide (Furosemide 20 Mg Tab) 20 mg PO DAILY [facility] Last Admin: 03/25/21 09:30 Dose: 20 mg Documented by: Lidocaine HCl (Lidocaine 2% 100 Mg/5 Ml Syringe) 0 mg IVPUSH ASDIRECTED PRN PRN Reason: Heart. Magnesium Oxide (Magnesium Oxide 500 Mg Tab) 250 mg PO BID [facility] Last Admin: 03/26/21 08:27 Dose: 250 mg Documented by: Metoprolol Tartrate (Metoprolol Tartrate 25 Mg Tab) 12.5 mg PO BID [facility] Last Admin: 03/26/21 08:24 Dose: 12.5 mg Documented by: Mirtazapine (Mirtazapine 15 Mg Tab) 7.5 mg PO BEDTIME [facility] Last Admin: 03/25/21 20:24 Dose: 7.5 mg Documented by: Nicotine (Nicotine 21 Mg/24 Hr Patch) 21 mg TRDERM DAILY [facility] Last Admin: 03/26/21 08:28 Dose: 21 mg Documented by: Nitroglycerin (Nitroglycerin 0.4 Mg Tab.Sl) 0.4 mg SL ASDIRECTED PRN PRN Reason: Heart. Fluticasone/Umeclidin/Vilanter 28 Puff/Inhaler Own Med 1 puff INH DAILY [facility] Last Admin: 03/26/21 08:30 Dose: 1 puff Documented by: Oxycodone/Acetaminophen (Acetaminophen/Oxycodone 325-5 Mg Tab) 1 tab PO Q6H PRN PRN Reason: Pain (moderate 4-6) Polyethylene Glycol (Polyethylene Glycol 3350 Powder 17 Gm Packet) 17 gm PO DAILY PRN PRN Reason: Constipation Potassium Chloride (Potassium Chloride 10 Meq Tab.Er) 20 meq PO DAILY [facility] Last Admin: 03/26/21 08:25 Dose: 20 meq Documented by: Prochlorperazine Maleate (Prochlorperazine 5 Mg Tab) 10 mg PO QID PRN PRN Reason: Nausea/Vomiting Senna/Docusate Sodium (Docusate Sodium/Sennosides 50-8.6 Mg Tab) 1 tab PO DAILY PRN PRN Reason: Constipation Sodium Chloride (Sodium Chloride 0.9% 10 Ml Syringe) 10 ml FLUSH Q8HR PRN PRN Reason: keep vein open Last Admin: 03/24/21 21:48 Dose: 10 ml Documented by: Discontinued Medications Ceftriaxone Sodium (Ceftriaxone 2 Gm Vial) 2 gm IVPUSH ONETIME ONE Stop: 03/23/21 18:44 Last Admin: 03/23/21 19:39 Dose: 2 gm Documented by: Furosemide (Furosemide 40 Mg/4 Ml Vial) 20 mg IVPUSH NOW ONE Stop: 03/24/21 13:32 Last Admin: 03/24/21 13:48 Dose: 20 mg Documented by: Furosemide (Furosemide 20 Mg Tab) 20 mg PO ONETIME ONE Stop: 03/25/21 17:31 Last Admin: 03/25/21 17:49 Dose: 20 mg Documented by: Sodium Chloride (Normal Saline) 100 mls @ 200 mls/hr IV ASDIRECTED [facility] Last Admin: 03/23/21 21:00 Dose: 200 mls/hr Documented by: Sodium Chloride (Normal Saline) 500 mls @ 75 mls/hr IV ASDIRECTED [facility] Stop: 03/24/21 02:33 Last Admin: 03/23/21 23:10 Dose: 75 mls/hr Documented by: Magnesium Sulfate 2 gm/ Premix 50 mls @ 25 mls/hr IV ONETIME ONE Stop: 03/24/21 00:32 Last Admin: 03/23/21 23:10 Dose: 25 mls/hr Documented by: Sodium Chloride (Normal Saline) Confirm Administered Dose 1,000 mls @ as directed .ROUTE .STK-MED ONE Stop: 03/25/21 09:48 Last Admin: 03/25/21 11:26 Dose: Not Given Documented by: Sodium Chloride (Normal Saline) 1,000 mls @ 999 mls/hr IV .BOLUS ONE Stop: 03/25/21 11:11 Last Admin: 03/25/21 09:40 Dose: 999 mls/hr Documented by: Iopamidol (Iopamidol 755 Mg/Ml 75 Ml Bottle) 75 ml IVPUSH ONETIME ONE Stop: 03/23/21 21:12 Last Admin: 03/23/21 21:00 Dose: 75 ml Documented by: Lidocaine HCl (Lidocaine 2% Jelly 5 Ml Tube) 5 ml TOP ONETIME ONE Stop: 03/23/21 20:17 Last Admin: 03/23/21 19:55 Dose: 5 ml Documented by: - Exam Quality Assessment: Supplemental Oxygen Urinary Catheter Total Time: 2Days 11Hours General: Alert, Mild Distress Lungs: Crackles (Fine early inspiratory crackles right base) Cardiovascular: Regular Rate, Regular Rhythm GI/Abdominal Exam: Normal Bowel Sounds, Soft. No: Guarding, Rigid, Mass Extremities: No Pedal Edema - Patient Data Result Diagrams: 03/25/21 07:50 03/25/21 07:50 Sepsis Event Note - Evaluation Sepsis Screening Result: Severe Sepsis Risk - Focused Exam Vital Signs: Vital Signs Temp Pulse Pulse Resp BP BP Pulse Ox 03/26/21 09:00 03/26/21 08:24 86 140/56 L 03/26/21 06:09 97.6 F 85 28 H 76/47 L 91 L 03/26/21 03:00 98.1 F 85 28 H 79/53 L 91 L Pulse Ox 03/26/21 09:00 90 L 03/26/21 08:24 03/26/21 06:09 03/26/21 03:00 - Problem List Review Problem List Initiated/Reviewed/Updated: Yes - Plan Plan:: History of present illness: This is a 75 year old male with a significant PMH of Metastatic non-small cell lung cancer on chemotherapy, pancreatic mass, COPD, thrombocytopenia, atrial fibrillation/flutter not on anticoagulation admitted to [facility] 03/22/21 initially swing bed for PT/OT services. Patient was hospitalized at [facility] 03/15/21 - 03/22/21 for septic shock secondary to perforated gallbladder, gram negative bacteremia with E. Coli on blood cultures. On admission to [facility] he was started on Zosyn, switched to Ceftriaxone 03/19. Discharged on oral Vantin 200 mg 2 times a day for 8 days (total 14 days) given bacteremia. He underwent cholecystectomy with drainage tube placement on 03/16/21. limited drainage output per records. Patient was admitted swing bed for rehabilitative services however changed from swing bed status to inpatient on 03/23/21 for multiple acute concerns including worsening hypoxia, decreased urine output. Hospitalization Course: 03/22/21- Patient arrived from [facility] late evening and admitted to swing bed at [facility] 03/23/21 Patient ill appearing on hospital rounds 03/23/21. He is lying in bed with limited interaction and slow to respond to verbal stimuli. He is fatigued and profoundly weak. Lengthy discussion had with patient regarding Full code status with patient desiring to change to a DRN status with family in agreement. Interval update 03/23/21: Patient switched from SB status to inpatient status due to acute change in clinical status with additional noted concerns of decreased urine output (with no urine output noted since the evening prior) and worsening respiratory status with increasing oxygen requirements. Discussed had with patient/family who wish to continue full treatment. Initial bladder ultrasound showed only 50 cc with limited oral intake. Indwelling catheter placed for accurate I/O. patient started on NS 75ml for 4 hours with improved urine output. Labs, chest x-ray, and ct of the chest done. 03/24/21- patient with improved urine output with approximately 430mL out overnight. Patient is up 2 pounds in weight from lastnight and 4 total from admission. respiratory status worse this AM. patient requiring 5L supplemental oxygen. baseline requirement 2-3L as of recent. 03/25/21; increased O2 requirements with very low BP on rounds--improving with 250ml NS bolus. I/O: weight: down 2.5lbs from yesterday __ Hospitalization problems: --C. difficile infection, Gram-negative bacteremia- - E. coli blood cultures pansensitive. Suspect current antibiotic C. difficile etiology, will change to Augmentin--ADD on vancomycin # Acute on chronic hypoxic respiratory failure, co2 34 # COPD - on home oxygen with 2-3 L continuously however with increasing oxygen requirements requiring up to 5-6 L now - on Trelegy - Chest x-ray showing infiltrate, atelectasis, and effusion of left lung base ? pneumonia. PE a consideration - CTA done with no evidence of PE. No pneumonia as questioned on x-ray. mild pleural reaction bilaterally. atelectasis Left lower lobe. # Acute on Chronic diastolic CHF - BNP 400s - Wt down 5 lbs from yesterday, (7.5 lbs past 48hrs) - strict I/O - ECHO 01/17/21 normal LV systolic function. EF 65%. grade 1 diastolic dysfunction. no significant valvular abnormalities. # hypomagnesemia - IV replacement 03/23/21. - recheck normalized at 2.0 - will resume PO supplementation # urinary retention - Remove Thayer twan in light of C-diff diarrhea. Bladder scan TWICE after void and txt Aamir with results. # Perforated gallbladder- -s/p cholecystectomy with percutaneous cholecystostomy drain in place. - limited drainage output (5ml) - IR recommendation to keep drain usually for 6 weeks to have time to perform a tract before removal. # septic shock- secondary to above. Resolved # Thrombocytopenia- - acute on chronic secondary to chemotherapy. - stable. continue to monitor - No report of easy bleeding. # Non-small cell lung cancer of the RUL- - metastasis to the pancreas, left adrenal gland, left abdominal wall site- - s/p radiation therapy to the pancreatic mass. - s/p chemo with carboplatin + taxol x 4 cycles. Added keytruda with cycle 3. 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 - followed by oncology at [facility]. Chronic conditions # anemia- secondary to chemo. 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 planned for during hospitalization however due to pulmonary status GI Recommend outpatient ERCP in one month. # tobacco use disorder- NRT # Hypokalemia- 20 MeQ K+ daily. # Atrial fibrillation:tarted low-dose [id number] twice a day which was continued at discharge. No anticoagulation due to thrombocytopenia. # Chronic diastolic CHF- on lasix 20mg with potassium supplement. # dilatation of the aorta- noted on ECHO. measuring 41.0 mm # Nausea- compazine PRN # Hx of Constipation (however diarrhea today) miralax daily. Senna PRN. # insomnia- remeron MISC meds/supplements- calcium, vitamin D, Folic acid. #FEN: mechanical soft diet. (Dentures were lost during hospitalization in [place]. Patient reports difficulty with chewing as a result. Dietary to work with patient with meal selection. IV fluids SL due to concern of mild overload CODE STATUS: DNR/DNI 03/23/21 Lengthy discussion had with patient with present at bedside. Also called both daughters Hawa (DPOA) and Lina to review patient wishes and code status. Patient and family collectively agree to change patient from a Full code and DNR. Patient states that he does not wish to have CPR, intubation or any artificial nutrition. For now we will continue patient as a full treatment. However did discuss with patient his wishes for continued treatment and he states he is unsure. POLST form reviewed with patient and signed by patient with presents at bedside. Disposition: --We will continue inpatient status for now to monitor ongoing respiratory, fluid volume status, electrolytes --Discontinue current antibiotics, add vancomycin p.o. --Add Augmentin --DC tele --Remove Indwelling Thayer, especially in light of C. difficile diarrhea --Bladder scan post void THEN immediately straight cath x1 and record both amounts. Nidhi Rutledge with results --Isolation precautions. Follow-up: - 04/01/21- Oncology follow-up with Dr. Mancini. Chemotherapy. - outpatient ERCP in approximately 1 month with stent change (referral placed at discharge, scheduled date pending) - Outpatient IR follow-up for drain removal in approximately 6 weeks (referral placed at discharge, scheduled date pending) - patient with unexplained anemia, thrombocytopenia. labs reviewed showing a history of pancytopenia in 2019. consider further outpatient hematologic work-up depending on patient wishes.
[2021-03-26] MEDS ORDERED: Amoxicillin/Clavulanate K 875-125 MG Tab PO ONE (13:00)
[2021-03-26] MEDS: Vancomycin 125 MG Cap PO SCH ×3 (13:04→20:23)
[2021-03-26 14:35] LABS: ANION GAP 7.7 mmol/L (5-15); CHLORIDE,CL 100 mmol/L (98-107); SODIUM,NA 138 mmol/L (136-145)
[2021-03-26] MEDS: Menthol/Zinc Oxide Ointment 113 GM Tube TOP PRN (19:02)
[2021-03-26] MEDS: Mirtazapine 15 MG Tab PO SCH (20:22)
[2021-03-26] MEDS: Amoxicillin/Clavulanate K 875-125 MG Tab PO SCH (20:24)
[2021-03-26] MEDS: Lactated Ringers 1,000 ML IV SCH (20:26)
[2021-03-27] MEDS: Menthol/Zinc Oxide Ointment 113 GM Tube TOP PRN (03:38)
[2021-03-27] MEDS: Ascorbic Acid 500 MG Tab PO SCH (09:06)
[2021-03-27] MEDS: Vancomycin 125 MG Cap PO SCH ×4 (09:07→20:50)
[2021-03-27] MEDS: Folic Acid 1 MG Tab PO SCH (09:07)
[2021-03-27] MEDS: Amoxicillin/Clavulanate K 875-125 MG Tab PO SCH ×2 (09:07→20:52)
[2021-03-27] MEDS: Cholecalciferol (Vitamin D3) 25 MCG Tab PO SCH (09:07)
[2021-03-27] MEDS: Potassium Chloride 10 MEQ Tab.ER PO SCH (09:07)
[2021-03-27] MEDS: VILANTER INH SCH (09:08)
[2021-03-27] MEDS: FLUTICASONE INH SCH (09:08)
[2021-03-27] MEDS: Magnesium Oxide 500 MG Tab PO SCH ×2 (09:08→20:50)
[2021-03-27] MEDS: UMECLIDIN INH SCH (09:08)
[2021-03-27] MEDS: Nicotine 21 MG/24 Hr Patch TRDERM SCH (09:08)
[2021-03-27] MEDS: Metoprolol Tartrate 25 MG Tab PO SCH ×2 (09:14→20:52)
[2021-03-27] MEDS: Lactated Ringers 1,000 ML IV SCH (10:43)
--- NOTE | 2021-03-27 12:31 | PCM.PN ---
- General Info Date of Service: 03/27/21 Functional Status: Reports: Pain Controlled. Denies: Ambulating, Urinating (AUR, placed weiner back in last night) - Review of Systems General: Reports: Weakness. Denies: Fever HEENT: Reports: No Symptoms Pulmonary: Reports: Shortness of Breath. Denies: Cough, Sputum, Wheezing Cardiovascular: Denies: Chest Pain, Palpitations Gastrointestinal: Reports: Diarrhea. Denies: Abdominal Pain, Melena, Nausea, Vomiting Genitourinary: Denies: Dysuria Musculoskeletal: Denies: Joint Pain, Joint Swelling Skin: Reports: Rash Neurological: Reports: Pre-Existing Deficit, Difficulty Walking, Weakness - Patient Data Vitals - Most Recent: Last Vital Signs Temp 97.5 F 03/27/21 06:43 Pulse 83 03/27/21 09:14 Resp 24 H 03/27/21 06:43 BP 103/55 L 03/27/21 09:14 Pulse Ox 95 03/27/21 07:30 Weight - Most Recent: 161 lb 9 oz I&O - Last 24 Hours: Intake & Output 03/26/21 03/27/21 03/27/21 22:59 06:59 14:59 Intake Total 250 50 Balance 250 50 Lab Results Last 24 Hours: Laboratory Results - last 24 hr 03/26/21 03/26/21 Range/Units 13:00 13:00 WBC 9.83 (5.00-10.00) 10^3/uL RBC 2.31 L (4.50-6.00) 10^6/uL Hgb 7.9 L (13.0-17.0) g/dL Hct 26.0 L (40.0-52.0) % MCV 112.6 H D (82.0-92.0) fL MCH 34.2 H (27.0-31.0) pg MCHC 30.4 L (32.0-36.0) g/dL RDW 19.0 H (11.5-14.5) % Plt Count 195 (150-400) 10^3/uL MPV 11.2 H (7.4-10.4) fL Immature Gran % (Auto) 1.2 (0.0-5.0) % Neut % (Auto) 87.7 H (50.0-70.0) % Lymph % (Auto) 5.2 L (20.0-40.0) % Hickman % (Auto) 5.4 (2.0-8.0) % Eos % (Auto) 0.3 L (1.0-3.0) % Baso % (Auto) 0.2 (0.0-1.0) % Neut # (Auto) 8.62 H (2.50-7.00) 10^3/uL Lymph # (Auto) 0.51 L (1.00-4.00) 10^3/uL Hickman # (Auto) 0.53 (0.10-0.80) 10^3/uL Eos # (Auto) 0.03 L (0.10-0.30) 10^3/uL Baso # (Auto) 0.02 (0.00-0.10) 10^3/uL Immature Gran # (Auto) 0.12 (0.00-0.50) 10^3/uL Polychromasia 1+ slight Anisocytosis 1+ slight Sodium 138 (136-145) mmol/L Potassium 4.7 (3.5-5.1) mmol/L Chloride 100 (98-107) mmol/L Carbon Dioxide 35.0 H (21.0-32.0) mmol/L Anion Gap 7.7 (5-15) mmol/L BUN 11 (7-18) mg/dL Creatinine 0.46 L (0.51-1.17) mg/dL Est Cr Clr Drug Dosing 129.73 mL/min Estimated GFR (MDRD) > 60 mL/min Glucose 103 (70-140) mg/dL Calcium 7.8 L (8.7-10.3) mg/dL Rafa Results Last 24 Hours: Microbiology 03/26/21 05:15 Clostridioides difficile Antigen - Final Stool / Feces Clostridioides difficile Toxin Assay - Final Positive C. Diff Toxin Med Orders - Current: Current Medications Acetaminophen (Acetaminophen 325 Mg Tab) 650 mg PO Q4H PRN PRN Reason: Pain Last Admin: 03/23/21 23:55 Dose: 650 mg Documented by: Amoxicillin/Clavulanate Potassium (Amoxicillin/Clavulanate K 875-125 Mg Tab) 1 tab PO Q12H KELY Last Admin: 03/27/21 09:07 Dose: 1 tab Documented by: Ascorbic Acid (Ascorbic Acid 500 Mg Tab) 1,000 mg PO DAILY KELY Last Admin: 03/27/21 09:06 Dose: 1,000 mg Documented by: Atropine Sulfate (Atropine 0.1 Mg/Ml 10 Ml Syringe) 0 mg IVPUSH ASDIRECTED PRN PRN Reason: Heart. Bisacodyl (Bisacodyl 10 Mg Supp) 10 mg RECTAL DAILY PRN PRN Reason: Constipation Calamine/Phenol (Menthol/Zinc Oxide Ointment 113 Gm Tube) 0 gm TOP Q6H PRN PRN Reason: Other Last Admin: 03/27/21 03:38 Dose: 1 applic Documented by: Cholecalciferol (Cholecalciferol (Vitamin D3) 25 Mcg Tab) 25 mcg PO DAILY [facility] Last Admin: 03/27/21 09:07 Dose: 25 mcg Documented by: Epinephrine HCl (Epinephrine 1:10,000 1 Mg/10 Ml Syringe) 1 mg IVPUSH ASDIRECTED PRN PRN Reason: Heart. Folic Acid (Folic Acid 1 Mg Tab) 1 mg PO DAILY [facility] Last Admin: 03/27/21 09:07 Dose: 1 mg Documented by: Furosemide (Furosemide 20 Mg Tab) 20 mg PO DAILY [facility] Last Admin: 03/25/21 09:30 Dose: 20 mg Documented by: Lactated Ringer's (Ringers, Lactated) 1,000 mls @ 65 mls/hr IV ASDIRECTED [facility] Last Admin: 03/27/21 10:43 Dose: 65 mls/hr Documented by: Lidocaine HCl (Lidocaine 2% 100 Mg/5 Ml Syringe) 0 mg IVPUSH ASDIRECTED PRN PRN Reason: Heart. Magnesium Oxide (Magnesium Oxide 500 Mg Tab) 250 mg PO BID [facility] Last Admin: 03/27/21 09:08 Dose: 250 mg Documented by: Metoprolol Tartrate (Metoprolol Tartrate 25 Mg Tab) 12.5 mg PO BID [facility] Last Admin: 03/27/21 09:14 Dose: 12.5 mg Documented by: Mirtazapine (Mirtazapine 15 Mg Tab) 7.5 mg PO BEDTIME [facility] Last Admin: 03/26/21 20:22 Dose: 7.5 mg Documented by: Nicotine (Nicotine 21 Mg/24 Hr Patch) 21 mg TRDERM DAILY [facility] Last Admin: 03/27/21 09:08 Dose: 21 mg Documented by: Nitroglycerin (Nitroglycerin 0.4 Mg Tab.Sl) 0.4 mg SL ASDIRECTED PRN PRN Reason: Heart. Fluticasone/Umeclidin/Vilanter 28 Puff/Inhaler Own Med 1 puff INH DAILY [facility] Last Admin: 03/27/21 09:08 Dose: 1 puff Documented by: Oxycodone/Acetaminophen (Acetaminophen/Oxycodone 325-5 Mg Tab) 1 tab PO Q6H PRN PRN Reason: Pain (moderate 4-6) Polyethylene Glycol (Polyethylene Glycol 3350 Powder 17 Gm Packet) 17 gm PO DAILY PRN PRN Reason: Constipation Potassium Chloride (Potassium Chloride 10 Meq Tab.Er) 20 meq PO DAILY [facility] Last Admin: 03/27/21 09:07 Dose: 20 meq Documented by: Prochlorperazine Maleate (Prochlorperazine 5 Mg Tab) 10 mg PO QID PRN PRN Reason: Nausea/Vomiting Senna/Docusate Sodium (Docusate Sodium/Sennosides 50-8.6 Mg Tab) 1 tab PO DAILY PRN PRN Reason: Constipation Sodium Chloride (Sodium Chloride 0.9% 10 Ml Syringe) 10 ml FLUSH Q8HR PRN PRN Reason: keep vein open Last Admin: 03/24/21 21:48 Dose: 10 ml Documented by: Vancomycin HCl (Vancomycin 125 Mg Cap) 125 mg PO QID [facility] Stop: 04/05/21 23:59 Last Admin: 03/27/21 09:07 Dose: 125 mg Documented by: Discontinued Medications Amoxicillin/Clavulanate Potassium (Amoxicillin/Clavulanate K 875-125 Mg Tab) 1 tab PO ONETIME ONE Stop: 03/26/21 13:01 Last Admin: 03/26/21 13:08 Dose: 1 tab Documented by: Cefdinir (Cefdinir 300 Mg Cap) 300 mg PO BID [facility] Stop: 03/31/21 21:01 Last Admin: 03/26/21 08:24 Dose: 300 mg Documented by: Ceftriaxone Sodium (Ceftriaxone 2 Gm Vial) 2 gm IVPUSH ONETIME ONE Stop: 03/23/21 18:44 Last Admin: 03/23/21 19:39 Dose: 2 gm Documented by: Furosemide (Furosemide 40 Mg/4 Ml Vial) 20 mg IVPUSH NOW ONE Stop: 03/24/21 13:32 Last Admin: 03/24/21 13:48 Dose: 20 mg Documented by: Furosemide (Furosemide 20 Mg Tab) 20 mg PO ONETIME ONE Stop: 03/25/21 17:31 Last Admin: 03/25/21 17:49 Dose: 20 mg Documented by: Sodium Chloride (Normal Saline) 100 mls @ 200 mls/hr IV ASDIRECTED [facility] Last Admin: 03/23/21 21:00 Dose: 200 mls/hr Documented by: Sodium Chloride (Normal Saline) 500 mls @ 75 mls/hr IV ASDIRECTED [facility] Stop: 03/24/21 02:33 Last Admin: 03/23/21 23:10 Dose: 75 mls/hr Documented by: Magnesium Sulfate 2 gm/ Premix 50 mls @ 25 mls/hr IV ONETIME ONE Stop: 03/24/21 00:32 Last Admin: 03/23/21 23:10 Dose: 25 mls/hr Documented by: Sodium Chloride (Normal Saline) Confirm Administered Dose 1,000 mls @ as directed .ROUTE .STK-MED ONE Stop: 03/25/21 09:48 Last Admin: 03/25/21 11:26 Dose: Not Given Documented by: Sodium Chloride (Normal Saline) 1,000 mls @ 999 mls/hr IV .BOLUS ONE Stop: 03/25/21 11:11 Last Admin: 03/25/21 09:40 Dose: 999 mls/hr Documented by: Iopamidol (Iopamidol 755 Mg/Ml 75 Ml Bottle) 75 ml IVPUSH ONETIME ONE Stop: 03/23/21 21:12 Last Admin: 03/23/21 21:00 Dose: 75 ml Documented by: Lidocaine HCl (Lidocaine 2% Jelly 5 Ml Tube) 5 ml TOP ONETIME ONE Stop: 03/23/21 20:17 Last Admin: 03/23/21 19:55 Dose: 5 ml Documented by: - Exam Quality Assessment: Supplemental Oxygen Urinary Catheter Total Time: 0Days 2Hours General: Alert, Oriented, Cooperative, No Acute Distress Neck: Supple Lungs: Crackles Cardiovascular: Regular Rate, Irregular Rhythm GI/Abdominal Exam: Soft. No: Distended, Guarding, Rigid, Rebound Back Exam: No: CVA Tenderness (R) Extremities: No: Pedal Edema, Dylon's Sign Peripheral Pulses: 2+: Radial (L), Radial (R) Skin: Other (excoireated perneum) Neurological: Normal Speech, Normal Tone Psy/Mental Status: Alert, Labile Mood - Patient Data Lab Results Last 24 hrs: Laboratory Results - last 24 hr 03/26/21 03/26/21 Range/Units 13:00 13:00 WBC 9.83 (5.00-10.00) 10^3/uL RBC 2.31 L (4.50-6.00) 10^6/uL Hgb 7.9 L (13.0-17.0) g/dL Hct 26.0 L (40.0-52.0) % MCV 112.6 H D (82.0-92.0) fL MCH 34.2 H (27.0-31.0) pg MCHC 30.4 L (32.0-36.0) g/dL RDW 19.0 H (11.5-14.5) % Plt Count 195 (150-400) 10^3/uL MPV 11.2 H (7.4-10.4) fL Immature Gran % (Auto) 1.2 (0.0-5.0) % Neut % (Auto) 87.7 H (50.0-70.0) % Lymph % (Auto) 5.2 L (20.0-40.0) % Hickman % (Auto) 5.4 (2.0-8.0) % Eos % (Auto) 0.3 L (1.0-3.0) % Baso % (Auto) 0.2 (0.0-1.0) % Neut # (Auto) 8.62 H (2.50-7.00) 10^3/uL Lymph # (Auto) 0.51 L (1.00-4.00) 10^3/uL Hickman # (Auto) 0.53 (0.10-0.80) 10^3/uL Eos # (Auto) 0.03 L (0.10-0.30) 10^3/uL Baso # (Auto) 0.02 (0.00-0.10) 10^3/uL Immature Gran # (Auto) 0.12 (0.00-0.50) 10^3/uL Polychromasia 1+ slight Anisocytosis 1+ slight Sodium 138 (136-145) mmol/L Potassium 4.7 (3.5-5.1) mmol/L Chloride 100 (98-107) mmol/L Carbon Dioxide 35.0 H (21.0-32.0) mmol/L Anion Gap 7.7 (5-15) mmol/L BUN 11 (7-18) mg/dL Creatinine 0.46 L (0.51-1.17) mg/dL Est Cr Clr Drug Dosing 129.73 mL/min Estimated GFR (MDRD) > 60 mL/min Glucose 103 (70-140) mg/dL Calcium 7.8 L (8.7-10.3) mg/dL Result Diagrams: 03/26/21 13:00 03/26/21 13:00 Rafa Results Last 24 hrs: Microbiology 03/26/21 05:15 Clostridioides difficile Antigen - Final Stool / Feces Clostridioides difficile Toxin Assay - Final Positive C. Diff Toxin Sepsis Event Note - Evaluation Sepsis Screening Result: Severe Sepsis Risk - Focused Exam Vital Signs: Vital Signs Temp Pulse Pulse Pulse Resp BP BP 03/27/21 09:14 83 103/55 L 03/27/21 07:30 03/27/21 06:43 97.5 F 79 24 H 109/57 L 03/27/21 03:00 97.4 F 94 22 H 99/45 L Pulse Ox Pulse Ox 03/27/21 09:14 03/27/21 07:30 95 03/27/21 06:43 94 L 03/27/21 03:00 93 L - Problem List Review Problem List Initiated/Reviewed/Updated: Yes - My Orders Last 24 Hours: My Active Orders 03/26/21 11:50 DC Weiner Catheter [Urinary Catheter Removal] [RC] PER UNIT ROUTINE 03/26/21 13:00 Vancomycin [Vancocin 125 MG Capsule] 125 mg PO QID 03/26/21 18:05 Menthol/Zinc Oxide [Calmoseptine] 0 gm TOP Q6H PRN 03/26/21 20:00 Lactated Ringers [Ringers, Lactated] 1,000 ml IV ASDIRECTED 03/26/21 21:00 Amoxicillin/Clavulanate K [Augmentin 875 MG/125 MG] 1 tab PO Q12H 03/27/21 06:10 Weiner Catheter Insertion [Insert Urinary Catheter] [OM.PC] Q24H 03/27/21 07:32 Urinary Catheter Assessment [RC] - Assessment Assessment:: History of present illness: This is a 75 year old male with a significant PMH of Metastatic non-small cell lung cancer on chemotherapy, pancreatic mass, COPD, thrombocytopenia, atrial fibrillation/flutter not on anticoagulation admitted to [facility] 03/22/21 initially swing bed for PT/OT services. Patient was hospitalized at [facility] 03/15/21 - 03/22/21 for septic shock secondary to perforated gallbladder, gram negative bacteremia with E. Coli on blood cultures. On admission to [facility] he was started on Zosyn, switched to Ceftriaxone 03/19. Discharged on oral Vantin 200 mg 2 times a day for 8 days (total 14 days) given bacteremia. He underwent cholecystectomy with drainage tube placement on 03/16/21. limited drainage output per records. Patient was admitted swing bed for rehabilitative services however changed from swing bed status to inpatient on 03/23/21 for multiple acute concerns including worsening hypoxia, decreased urine output. Hospitalization Course: 03/22/21- Patient arrived from [facility] late evening and admitted to swing bed at [facility] 03/23/21 Patient ill appearing on hospital rounds 03/23/21. He is lying in bed with limited interaction and slow to respond to verbal stimuli. He is fatigued and profoundly weak. Lengthy discussion had with patient regarding Full code status with patient desiring to change to a DRN status with family in agreement. Interval update 03/23/21: Patient switched from SB status to inpatient status due to acute change in clinical status with additional noted concerns of decreased urine output (with no urine output noted since the evening prior) and worsening respiratory status with increasing oxygen requirements. Discussed had with patient/family who wish to continue full treatment. Initial bladder ultrasound showed only 50 cc with limited oral intake. Indwelling catheter placed for accurate I/O. patient started on NS 75ml for 4 hours with improved urine output. Labs, chest x-ray, and ct of the chest done. 03/24/21- patient with improved urine output with approximately 430mL out overnight. Patient is up 2 pounds in weight from lastnight and 4 total from admission. respiratory status worse this AM. patient requiring 5L supplemental oxygen. baseline requirement 2-3L as of recent. 03/25/21; increased O2 requirements with very low BP on rounds--improving with 250ml NS bolus. I/O: weight: down 2.5lbs from yesterday 03/26/21; Cdiff positive with ongoing diarrhea. E. coli blood cultures pansensitive. Suspect current antibiotic C. difficile etiology, will change to Augmentin--ADD on vancomycin. TWOC catherter today in light of diarhea. 03/27/21; Significant diarrhea, barrier applied, restarted LR last night with 200 bolus and maint at 65ml/hr until diarrhea abates, Hospitalization problems: --C. difficile infection, on Day# PO vancomycin, stopped cephlasporin and added Augmentin Gram-negative bacteremia- - E. coli blood cultures pansensitive. Suspect current antibiotic C. difficile etiology, Changed to Augmentin and added Vacomycin with stop dates. # Acute on chronic hypoxic respiratory failure, Co2 34 # COPD - on home oxygen with 2-3 L continuously however with increasing oxygen requirements requiring up to 5L - on Trelegy - Chest x-ray showing infiltrate, atelectasis, and effusion of left lung base ? pneumonia. PE a consideration - CTA done with no evidence of PE. No pneumonia as questioned on x-ray. mild pleural reaction bilaterally. atelectasis Left lower lobe. # Acute on Chronic diastolic CHF - BNP 400s - Wt down 5 lbs from yesterday, (7.5 lbs past 48hrs) - strict I/O - ECHO 01/17/21 normal LV systolic function. EF 65%. grade 1 diastolic dysfunction. no significant valvular abnormalities. # hypomagnesemia - IV replacement 03/23/21. - recheck normalized at 2.0 - will resume PO supplementation # AUR -Failed TWOC night of 03/26; replaced indwelling. # Perforated gallbladder- -s/p cholecystectomy with percutaneous cholecystostomy drain in place. - limited drainage output (5ml) - IR recommendation to keep drain usually for 6 weeks to have time to perform a tract before removal. # septic shock- secondary to above. Resolved # Thrombocytopenia- - acute on chronic secondary to chemotherapy. - stable. continue to monitor - No report of easy bleeding. # Non-small cell lung cancer of the RUL- - metastasis to the pancreas, left adrenal gland, left abdominal wall site- - s/p radiation therapy to the pancreatic mass. - s/p chemo with carboplatin + taxol x 4 cycles. Added keytruda with cycle 3. 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 - followed by oncology at [facility]. Chronic conditions # anemia- secondary to chemo. 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 planned for during hospitalization however due to pulmonary status GI Recommend outpatient ERCP in one month. # tobacco use disorder- NRT # Hypokalemia- 20 MeQ K+ daily. # Atrial fibrillation:8/5started low-dose [id number] twice a day which was continued at discharge. No anticoagulation due to thrombocytopenia. # Chronic diastolic CHF- on lasix 20mg with potassium supplement. # dilatation of the aorta- noted on ECHO. measuring 41.0 mm # Nausea- compazine PRN # Hx of Constipation (however diarrhea today) miralax daily. Senna PRN. # insomnia- remeron MISC meds/supplements- calcium, vitamin D, Folic acid. #FEN: mechanical soft diet. (Dentures were lost during hospitalization in [place]. Patient reports difficulty with chewing as a result. Dietary to work with justin ent with meal selection. IV fluids SL due to concern of mild overload CODE STATUS: DNR/DNI 03/23/21 Lengthy discussion had with patient with present at bedside. Also called both daughters Hawa (DPTHAD) and Lina to review patient wishes and code status. Patient and family collectively agree to change patient from a Full code and DNR. Patient states that he does not wish to have CPR, intubation or any artificial nutrition. For now we will continue patient as a full treatment. However did discuss with patient his wishes for continued treatment and he states he is unsure. POLST form reviewed with patient and signed by patient with presents at bedside. Disposition: --Cont with INPT status to monitor current avbx therapy, fluids status and electrolytes --Isolation precautions. --Anticipate placing back in Swing bed or NH this week. Follow-up: - 04/01/21- Oncology follow-up with Dr. Mancini. Chemotherapy. - outpatient ERCP in approximately 1 month with stent change (referral placed at discharge, scheduled date pending) - Outpatient IR follow-up for drain removal in approximately 6 weeks (referral placed at discharge, scheduled date pending) - patient with unexplained anemia, thrombocytopenia. labs reviewed showing a history of pancytopenia in 2019. consider further outpatient hematologic work-up depending on patient wishes.
[2021-03-27] MEDS: Mirtazapine 15 MG Tab PO SCH (20:51)
[2021-03-28 08:08] LABS: ANION GAP 8.6 mmol/L (5-15); CHLORIDE,CL 100 mmol/L (98-107); SODIUM,NA 137 mmol/L (136-145)
[2021-03-28] MEDS: Amoxicillin/Clavulanate K 875-125 MG Tab PO SCH ×2 (08:39→20:15)
[2021-03-28] MEDS: Vancomycin 125 MG Cap PO SCH ×4 (08:40→20:15)
[2021-03-28] MEDS: Cholecalciferol (Vitamin D3) 25 MCG Tab PO SCH (08:40)
[2021-03-28] MEDS: Potassium Chloride 10 MEQ Tab.ER PO SCH (08:40)
[2021-03-28] MEDS: Nicotine 21 MG/24 Hr Patch TRDERM SCH (08:41)
[2021-03-28] MEDS: Folic Acid 1 MG Tab PO SCH (08:43)
[2021-03-28] MEDS: Ascorbic Acid 500 MG Tab PO SCH (08:43)
[2021-03-28] MEDS: Metoprolol Tartrate 25 MG Tab PO SCH ×2 (08:43→20:16)
[2021-03-28] MEDS: Magnesium Oxide 500 MG Tab PO SCH ×2 (08:46→20:16)
[2021-03-28] MEDS: UMECLIDIN INH SCH (08:50)
[2021-03-28] MEDS: FLUTICASONE INH SCH (08:50)
[2021-03-28] MEDS: VILANTER INH SCH (08:50)
--- NOTE | 2021-03-28 10:04 | PCM.PN ---
- General Info Date of Service: 03/28/21 Functional Status: Reports: Pain Controlled, Tolerating Diet, Incentive Spirometry. Denies: Ambulating - Review of Systems General: Reports: Weakness (feeling better overall, much more alert, less SOB, lost IV last night. ) HEENT: Reports: No Symptoms Pulmonary: Reports: Shortness of Breath (at baseline) Cardiovascular: Denies: Chest Pain, Palpitations, Orthopnea, Edema Gastrointestinal: Reports: Diarrhea (MUCH improved, on 1 BM since last night. ) Skin: Reports: Pallor Neurological: Denies: Confusion Psychiatric: Denies: Confusion - Patient Data Vitals - Most Recent: Last Vital Signs Temp 97.4 F 03/28/21 06:47 Pulse 84 03/28/21 08:43 Resp 24 H 03/28/21 06:47 BP 119/68 03/28/21 08:43 Pulse Ox 97 03/28/21 08:20 Weight - Most Recent: 162 lb 8 oz I&O - Last 24 Hours: Intake & Output 03/27/21 03/28/21 03/28/21 22:59 06:59 14:59 Intake Total 350 20 Output Total 100 115 Balance 250 -95 Lab Results Last 24 Hours: Laboratory Results - last 24 hr 03/28/21 Range/Units 07:35 Sodium 137 (136-145) mmol/L Potassium 4.6 (3.5-5.1) mmol/L Chloride 100 (98-107) mmol/L Carbon Dioxide 33.0 H (21.0-32.0) mmol/L Anion Gap 8.6 (5-15) mmol/L BUN 9 (7-18) mg/dL Creatinine 0.48 L (0.51-1.17) mg/dL Est Cr Clr Drug Dosing 124.32 mL/min Estimated GFR (MDRD) > 60 mL/min Glucose 91 (70-140) mg/dL Calcium 7.3 L (8.7-10.3) mg/dL Med Orders - Current: Current Medications Acetaminophen (Acetaminophen 325 Mg Tab) 650 mg PO Q4H PRN PRN Reason: Pain Last Admin: 03/23/21 23:55 Dose: 650 mg Documented by: Amoxicillin/Clavulanate Potassium (Amoxicillin/Clavulanate K 875-125 Mg Tab) 1 tab PO Q12H KELY Last Admin: 03/28/21 08:39 Dose: 1 tab Documented by: Ascorbic Acid (Ascorbic Acid 500 Mg Tab) 1,000 mg PO DAILY COUNTS INCLUDE 234 BEDS AT THE [facility] Last Admin: 03/28/21 08:43 Dose: 1,000 mg Documented by: Atropine Sulfate (Atropine 0.1 Mg/Ml 10 Ml Syringe) 0 mg IVPUSH ASDIRECTED PRN PRN Reason: Heart. Bisacodyl (Bisacodyl 10 Mg Supp) 10 mg RECTAL DAILY PRN PRN Reason: Constipation Calamine/Phenol (Menthol/Zinc Oxide Ointment 113 Gm Tube) 0 gm TOP Q6H PRN PRN Reason: Other Last Admin: 03/27/21 03:38 Dose: 1 applic Documented by: Cholecalciferol (Cholecalciferol (Vitamin D3) 25 Mcg Tab) 25 mcg PO DAILY COUNTS INCLUDE 234 BEDS AT THE [facility] Last Admin: 03/28/21 08:40 Dose: 25 mcg Documented by: Epinephrine HCl (Epinephrine 1:10,000 1 Mg/10 Ml Syringe) 1 mg IVPUSH ASDIRECTED PRN PRN Reason: Heart. Folic Acid (Folic Acid 1 Mg Tab) 1 mg PO DAILY COUNTS INCLUDE 234 BEDS AT THE [facility] Last Admin: 03/28/21 08:43 Dose: 1 mg Documented by: Furosemide (Furosemide 20 Mg Tab) 20 mg PO DAILY COUNTS INCLUDE 234 BEDS AT THE [facility] Last Admin: 03/25/21 09:30 Dose: 20 mg Documented by: Lactated Ringer's (Ringers, Lactated) 1,000 mls @ 65 mls/hr IV ASDIRECTED COUNTS INCLUDE 234 BEDS AT THE [facility] Last Admin: 03/27/21 10:43 Dose: 65 mls/hr Documented by: Lidocaine HCl (Lidocaine 2% 100 Mg/5 Ml Syringe) 0 mg IVPUSH ASDIRECTED PRN PRN Reason: Heart. Magnesium Oxide (Magnesium Oxide 500 Mg Tab) 250 mg PO BID COUNTS INCLUDE 234 BEDS AT THE [facility] Last Admin: 03/28/21 08:46 Dose: 250 mg Documented by: Metoprolol Tartrate (Metoprolol Tartrate 25 Mg Tab) 12.5 mg PO BID COUNTS INCLUDE 234 BEDS AT THE [facility] Last Admin: 03/28/21 08:43 Dose: 12.5 mg Documented by: Mirtazapine (Mirtazapine 15 Mg Tab) 7.5 mg PO BEDTIME COUNTS INCLUDE 234 BEDS AT THE [facility] Last Admin: 03/27/21 20:51 Dose: 7.5 mg Documented by: Nicotine (Nicotine 21 Mg/24 Hr Patch) 21 mg TRDERM DAILY COUNTS INCLUDE 234 BEDS AT THE [facility] Last Admin: 03/28/21 08:41 Dose: 21 mg Documented by: Nitroglycerin (Nitroglycerin 0.4 Mg Tab.Sl) 0.4 mg SL ASDIRECTED PRN PRN Reason: Heart. Fluticasone/Umeclidin/Vilanter 28 Puff/Inhaler Own Med 1 puff INH DAILY COUNTS INCLUDE 234 BEDS AT THE [facility] Last Admin: 03/28/21 08:50 Dose: 1 puff Documented by: Oxycodone/Acetaminophen (Acetaminophen/Oxycodone 325-5 Mg Tab) 1 tab PO Q6H PRN PRN Reason: Pain (moderate 4-6) Polyethylene Glycol (Polyethylene Glycol 3350 Powder 17 Gm Packet) 17 gm PO DAILY PRN PRN Reason: Constipation Potassium Chloride (Potassium Chloride 10 Meq Tab.Er) 20 meq PO DAILY COUNTS INCLUDE 234 BEDS AT THE [facility] Last Admin: 03/28/21 08:40 Dose: 20 meq Documented by: Prochlorperazine Maleate (Prochlorperazine 5 Mg Tab) 10 mg PO QID PRN PRN Reason: Nausea/Vomiting Senna/Docusate Sodium (Docusate Sodium/Sennosides 50-8.6 Mg Tab) 1 tab PO DAILY PRN PRN Reason: Constipation Sodium Chloride (Sodium Chloride 0.9% 10 Ml Syringe) 10 ml FLUSH Q8HR PRN PRN Reason: keep vein open Last Admin: 03/24/21 21:48 Dose: 10 ml Documented by: Vancomycin HCl (Vancomycin 125 Mg Cap) 125 mg PO QID COUNTS INCLUDE 234 BEDS AT THE [facility] Stop: 04/05/21 23:59 Last Admin: 03/28/21 08:40 Dose: 125 mg Documented by: Discontinued Medications Amoxicillin/Clavulanate Potassium (Amoxicillin/Clavulanate K 875-125 Mg Tab) 1 tab PO ONETIME ONE Stop: 03/26/21 13:01 Last Admin: 03/26/21 13:08 Dose: 1 tab Documented by: Cefdinir (Cefdinir 300 Mg Cap) 300 mg PO BID COUNTS INCLUDE 234 BEDS AT THE [facility] Stop: 03/31/21 21:01 Last Admin: 03/26/21 08:24 Dose: 300 mg Documented by: Ceftriaxone Sodium (Ceftriaxone 2 Gm Vial) 2 gm IVPUSH ONETIME ONE Stop: 03/23/21 18:44 Last Admin: 03/23/21 19:39 Dose: 2 gm Documented by: Furosemide (Furosemide 40 Mg/4 Ml Vial) 20 mg IVPUSH NOW ONE Stop: 03/24/21 13:32 Last Admin: 03/24/21 13:48 Dose: 20 mg Documented by: Furosemide (Furosemide 20 Mg Tab) 20 mg PO ONETIME ONE Stop: 03/25/21 17:31 Last Admin: 03/25/21 17:49 Dose: 20 mg Documented by: Sodium Chloride (Normal Saline) 100 mls @ 200 mls/hr IV ASDIRECTED COUNTS INCLUDE 234 BEDS AT THE [facility] Last Admin: 03/23/21 21:00 Dose: 200 mls/hr Documented by: Sodium Chloride (Normal Saline) 500 mls @ 75 mls/hr IV ASDIRECTED COUNTS INCLUDE 234 BEDS AT THE [facility] Stop: 03/24/21 02:33 Last Admin: 03/23/21 23:10 Dose: 75 mls/hr Documented by: Magnesium Sulfate 2 gm/ Premix 50 mls @ 25 mls/hr IV ONETIME ONE Stop: 03/24/21 00:32 Last Admin: 03/23/21 23:10 Dose: 25 mls/hr Documented by: Sodium Chloride (Normal Saline) Confirm Administered Dose 1,000 mls @ as directed .ROUTE .STK-MED ONE Stop: 03/25/21 09:48 Last Admin: 03/25/21 11:26 Dose: Not Given Documented by: Sodium Chloride (Normal Saline) 1,000 mls @ 999 mls/hr IV .BOLUS ONE Stop: 03/25/21 11:11 Last Admin: 03/25/21 09:40 Dose: 999 mls/hr Documented by: Iopamidol (Iopamidol 755 Mg/Ml 75 Ml Bottle) 75 ml IVPUSH ONETIME ONE Stop: 03/23/21 21:12 Last Admin: 03/23/21 21:00 Dose: 75 ml Documented by: Lidocaine HCl (Lidocaine 2% Jelly 5 Ml Tube) 5 ml TOP ONETIME ONE Stop: 03/23/21 20:17 Last Admin: 03/23/21 19:55 Dose: 5 ml Documented by: - Exam Quality Assessment: Supplemental Oxygen Urinary Catheter Total Time: 1Days 2Hours General: Alert, Oriented, Cooperative Lungs: Clear to Auscultation. No: Crackles Cardiovascular: Regular Rate, Irregular Rhythm GI/Abdominal Exam: Soft, No Distention. No: Guarding, Rigid, Rebound Back Exam: No: CVA Tenderness (L), CVA Tenderness (R) Extremities: No Pedal Edema Skin: Other (reddend perineum) Neurological: Normal Speech, Normal Tone Psy/Mental Status: Alert, Normal Affect - Patient Data Lab Results Last 24 hrs: Laboratory Results - last 24 hr 03/28/21 Range/Units 07:35 Sodium 137 (136-145) mmol/L Potassium 4.6 (3.5-5.1) mmol/L Chloride 100 (98-107) mmol/L Carbon Dioxide 33.0 H (21.0-32.0) mmol/L Anion Gap 8.6 (5-15) mmol/L BUN 9 (7-18) mg/dL Creatinine 0.48 L (0.51-1.17) mg/dL Est Cr Clr Drug Dosing 124.32 mL/min Estimated GFR (MDRD) > 60 mL/min Glucose 91 (70-140) mg/dL Calcium 7.3 L (8.7-10.3) mg/dL Result Diagrams: 03/26/21 13:00 03/28/21 07:35 Sepsis Event Note - Evaluation Sepsis Screening Result: Possible Sepsis Risk - Focused Exam Vital Signs: Vital Signs Temp Pulse Pulse Resp BP BP Pulse Ox 03/28/21 08:43 84 119/68 03/28/21 08:20 03/28/21 06:47 97.4 F 74 24 H 109/43 L 97 03/27/21 23:14 97.8 F 88 20 106/58 L 97 Pulse Ox 03/28/21 08:43 03/28/21 08:20 97 03/28/21 06:47 03/27/21 23:14 - Problem List Review Problem List Initiated/Reviewed/Updated: Yes - Assessment Assessment:: History of present illness: This is a 75 year old male with a significant PMH of Metastatic non-small cell lung cancer on chemotherapy, pancreatic mass, COPD, thrombocytopenia, atrial fibrillation/flutter not on anticoagulation admitted [facility] 03[facility]21 initially swing bed for PT/OT services. Patient was hospitalized at [facility] 03/15/21 - 03/22/21 for septic shock secondary to perforated gallbladder, gram negative bacteremia with E. Coli on blood cultures. On admission to [facility] he was started on Zosyn, switched to Ceftriaxone 03/19. Discharged on oral Vantin 200 mg 2 times a day for 8 days (total 14 days) given bacteremia. He underwent cholecystectomy with drainage tube placement on 03/16/21. limited drainage output per records. Patient was admitted swing bed for rehabilitative services however changed from swing bed status to inpatient on 03/23/21 for multiple acute concerns including worsening hypoxia, decreased urine output. Hospitalization Course: 03/22/21- Patient arrived from [facility] late evening and admitted to swing bed at [facility] 03/23/21 Patient ill appearing on hospital rounds 03/23/21. He is lying in bed with limited interaction and slow to respond to verbal stimuli. He is fatigued and p rofoundly weak. Lengthy discussion had with patient regarding Full code status with patient desiring to change to a DRN status with family in agreement. Interval update 03/23/21: Patient switched from SB status to inpatient status due to acute change in clinical status with additional noted concerns of decreased urine output (with no urine output noted since the evening prior) and worsening respiratory status with increasing oxygen requirements. Discussed had with patient/family who wish to continue full treatment. Initial bladder ultrasound showed only 50 cc with limited oral intake. Indwelling catheter placed for accurate I/O. patient started on NS 75ml for 4 hours with improved urine output. Labs, chest x-ray, and ct of the chest done. 03/24/21- patient with improved urine output with approximately 430mL out overnight. Patient is up 2 pounds in weight from lastnight and 4 total from a dmission. respiratory status worse this AM. patient requiring 5L supplemental oxygen. baseline requirement 2-3L as of recent. 03/25/21; increased O2 requirements with very low BP on rounds--improving with 250ml NS bolus. I/O: weight: down 2.5lbs from yesterday 03/26/21; Cdiff positive with ongoing diarrhea. E. coli blood cultures pansensitive. Suspect current antibiotic C. difficile etiology, will change to Augmentin--ADD on vancomycin. TWOC catherter today in light of diarhea. 03/27/21; Significant diarrhea, barrier applied, restarted LR last night with 200 bolus and maint at 65ml/hr until diarrhea abates, 03/28/2021; nurses reported IV infiltrated, no order to restart, increase p.o. fluids. Diarrhea much improved only 1 stool now remaining up since last night. No vomiting no nausea, feels much better today, although not optimal likely very close to baseline. Continues with p.o. vancomycin tolerating well, seems to be tolerating Augmentin. Using incentive spirometer much alert Hospitalization problems: --C. difficile infection, on Day# PO vancomycin, stopped cephlasporin and added Augmentin Gram-negative bacteremia- - E. coli blood cultures pansensitive. Suspected current antibiotic C. difficile etiology, Changed to Augmentin and added Vacomycin with stop dates. # Acute on chronic hypoxic respiratory failure, Co2 34 # COPD - on home oxygen with 2-3 L continuously however with increasing oxygen requirements requiring up to 5L - on Trelegy - Chest x-ray showing infiltrate, atelectasis, and effusion of left lung base ? pneumonia. PE a consideration - CTA done with no evidence of PE. No pneumonia as questioned on x-ray. mild pleural reaction bilaterally. atelectasis Left lower lobe. # Acute on Chronic diastolic CHF - BNP 400s - Wt down ~5 lbs from admissionl , has been variable this admission due to the need for periodic IV fluid challenges - strict I/O - ECHO 01/17/21 normal LV systolic function. EF 65%. grade 1 diastolic dysfunction. no significant valvular abnormalities. # hypomagnesemia - IV replacement 03/23/21. - recheck normalized at 2.0 - will resume PO supplementation # AUR -Failed TWOC of 03/26; replaced indwelling. Will trial flomax # Perforated gallbladder- -s/p cholecystectomy with percutaneous cholecystostomy drain in place. - limited drainage output (5ml) - IR recommendation to keep drain usually for 6 weeks to have time to perform a tract before removal. # septic shock- secondary to above. Resolved # Thrombocytopenia- - acute on chronic secondary to chemotherapy. - stable. continue to monitor - No report of easy bleeding. # Non-small cell lung cancer of the RUL- - metastasis to the pancreas, left adrenal gland, left abdominal wall site- - s/p radiation therapy to the pancreatic mass. - s/p chemo with carboplatin + taxol x 4 cycles. Added keytruda with cycle 3. 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 - followed by oncology at [facility]. Chronic conditions # anemia- secondary to chemo. 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 planned for during hospitalization however due to pulmonary status GI Recommend outpatient ERCP in one month. # tobacco use disorder- NRT # Hypokalemia- 20 MeQ K+ daily. # Atrial fibrillation:5started low-dose .5mg twice a day which was continued at discharge. No anticoagulation due to thrombocytopenia. # Chronic diastolic CHF- on lasix 20mg with potassium supplement. # dilatation of the aorta- noted on ECHO. measuring 41.0 mm # Nausea- compazine PRN # Hx of Constipation (however diarrhea today) miralax daily. Senna PRN. # insomnia- remeron MISC meds/supplements- calcium, vitamin D, Folic acid. #FEN: mechanical soft diet. (Dentures were lost during hospitalization in [place]. Patient reports difficulty with chewing as a result. Dietary to work with patient with meal selection. IV fluids SL due to concern of mild overload CODE STATUS: DNR/DNI 03/23/21 Lengthy discussion had with patient with present at bedside. Also called both daughters Hawa (DPTHAD) and Lina to review patient wishes and code status. Patient and family collectively agree to change patient from a Full code and DNR. Patient states that he does not wish to have CPR, intubation or any artificial nutrition. For now we will continue patient as a full treatment. However did discuss with patient his wishes for continued treatment and he states he is unsure. POLST form reviewed with patient and signed by patient with presents at bedside. Disposition: --Cont with INPT status --Add Flomax --Isolation precautions. --Anticipate placing back in LTC in am. Follow-up: - 04/01/21- Oncology follow-up with Dr. Mancini. Chemotherapy. - outpatient ERCP in approximately 1 month with stent change (referral placed at discharge, scheduled date pending) - Outpatient IR follow-up for drain removal in approximately 6 weeks (referral placed at discharge, scheduled date pending) - patient with unexplained anemia, thrombocytopenia. labs reviewed showing a history of pancytopenia in 2019. consider further outpatient hematologic work-up depending on patient wishes.
[2021-03-28] MEDS: Tamsulosin 0.4 MG Cap.ER PO SCH (10:41)
[2021-03-28] MEDS: Mirtazapine 15 MG Tab PO SCH (20:15)
[2021-03-28] MEDS: Acetaminophen 325 MG Tab PO PRN (23:08)
[2021-03-29] MEDS: Metoprolol Tartrate 25 MG Tab PO SCH (08:31)
[2021-03-29] MEDS: VILANTER INH SCH (08:31)
[2021-03-29] MEDS: FLUTICASONE INH SCH (08:31)
[2021-03-29] MEDS: UMECLIDIN INH SCH (08:31)
[2021-03-29] MEDS: Tamsulosin 0.4 MG Cap.ER PO SCH (08:32)
[2021-03-29] MEDS: Magnesium Oxide 500 MG Tab PO SCH (08:32)
[2021-03-29] MEDS: Ascorbic Acid 500 MG Tab PO SCH (08:32)
[2021-03-29] MEDS: Potassium Chloride 10 MEQ Tab.ER PO SCH (08:32)
[2021-03-29] MEDS: Cholecalciferol (Vitamin D3) 25 MCG Tab PO SCH (08:32)
[2021-03-29] MEDS: Nicotine 21 MG/24 Hr Patch TRDERM SCH (08:32)
[2021-03-29] MEDS: Amoxicillin/Clavulanate K 875-125 MG Tab PO SCH (08:32)
[2021-03-29] MEDS: Vancomycin 125 MG Cap PO SCH (08:32)
[2021-03-29] MEDS: Furosemide 20 MG Tab PO SCH (08:33)
[2021-03-29] MEDS: Folic Acid 1 MG Tab PO SCH (08:33)
[2021-03-29 08:34] VITALS: BP 119/56; PULSE 83
[2021-03-29] MEDS: Sodium Chloride 0.9% 10 ML Syringe FLUSH PRN (08:34)
--- NOTE | 2021-03-29 11:08 | PCM.DCSUM1 ---
Discharge Summary - Discharge Data Discharge Date: 03/29/21 Discharge Disposition: DC/Tfer W/I Hosp To Swing 61 Condition: Fair - Referral to Home Health Primary Care Physician: Tiffany Elkins NP - Patient Summary/Data Consults: Consultations 03/28/21 12:30 PT Evaluation and Treatment [CONS] Routine 03/29/21 07:03 Consult to Dietary [Consult to Caddie] [CONS] Routine - Discharge Plan Home Medications: Home Meds Potassium Chloride 20 meq PO DAILY #30 tablet.er 02/25/21 [Rx] Acetaminophen 650 mg PO Q4H PRN 03/22/21 [History] Ascorbic Acid [Vitamin C] 1,000 mg PO DAILY 03/22/21 [History] Bisacodyl [Laxative Suppository] 10 mg RC DAILY PRN 03/22/21 [History] Cholecalciferol (Vitamin D3) [Vitamin D] 1,000 unit PO DAILY 03/22/21 [History] Fluticasone/Umeclidin/Vilanter [Trelegy Ellipta 100-62.5-25 MCG] 1 puff INH DAILY 03/22/21 [History] Folic Acid 1 mg PO DAILY 03/22/21 [History] Furosemide [Lasix] 20 mg PO DAILY 03/22/21 [History] Magnesium Oxide 250 mg PO BID 03/22/21 [History] Metoprolol Tartrate [Lopressor] 12.5 mg PO BID 03/22/21 [History] Mirtazapine [Remeron] 7.5 mg PO BEDTIME 03/22/21 [History] Nicotine [Nicotine Patch] 21 mg TD DAILY 03/22/21 [History] Prochlorperazine [Compazine] 10 mg PO QID PRN 03/22/21 [History] Sennosides 1 tab PO DAILY PRN 03/22/21 [History] oxyCODONE HCl/Acetaminophen [Oxycodone-Acetaminophen 5-325] 1 tab PO Q6H PRN 03/22/21 [History] polyethylene glycoL 3350 [MiraLAX] 17 gm PO DAILY PRN 03/22/21 [History] - Discharge Summary/Plan Comment DC Time >30 min.: Yes Total # of Minutes for Discharge Time: 60 minutes Discharge Summary/Plan Comment: Final diagnosis C. difficile infection, Gram-negative bacteremia- Acute on chronic hypoxic respiratory failure, COPD Acute on Chronic diastolic CHF Acute urinary retention AUR Perforated gallbladder Thrombocytopenia Non-small cell lung cancer of the RUL, metastasis to the pancreas, left adrenal gland, left abdominal wall site- History summary This is a 75 year old male with a significant PMH of Metastatic non-small cell lung cancer on chemotherapy, pancreatic mass, COPD, thrombocytopenia, atrial fibrillation/flutter not on anticoagulation admitted to [facility] 03/22/21 initially swing bed for PT/OT services. Patient was hospitalized at [facility] 03/15/21 - 03/22/21 for septic shock secondary to perforated gallbladder, gram negative bacteremia with E. Coli on blood cultures. On admission to [facility] he was started on Zosyn, switched to Ceftriaxone 03/19. Discharged on oral Vantin 200 mg 2 times a day for 8 days (total 14 days) given bacteremia. He underwent cholecystectomy with drainage tube placement on 03/16/21. limited drainage output per records. Patient was admitted swing bed for rehabilitative services however changed from swing bed status to inpatient on 03/23/21 for multiple acute concerns including worsening hypoxia, decreased urine output. Hospitalization Course: 03/22/21- Patient arrived from [facility] late evening and admitted to swing bed at [facility] 03/23/21 Patient ill appearing on hospital rounds 03/23/21. He is lying in bed with limited interaction and slow to respond to verbal stimuli. He is fatigued and profoundly weak. Lengthy discussion had with patient regarding Full code status with patient desiring to change to a DRN status with family in agreement. Interval update 03/23/21: Patient switched from SB status to inpatient status due to acute change in clinical status with additional noted concerns of decreased urine output (with no urine output noted since the evening prior) and worsening respiratory status with increasing oxygen requirements. Discussed had with patient/family who wish to continue full treatment. Initial bladder ultrasound showed only 50 cc with limited oral intake. Indwelling catheter placed for accurate I/O. patient started on NS 75ml for 4 hours with improved urine output. Labs, chest x-ray, and ct of the chest done. 03/24/21- patient with improved urine output with approximately 430mL out overnight. Patient is up 2 pounds in weight from lastnight and 4 total from admission. respiratory status worse this AM. patient requiring 5L supplemental oxygen. baseline requirement 2-3L as of recent. 03/25/21; increased O2 requirements with very low BP on rounds--improving with 250ml NS bolus. I/O: weight: down 2.5lbs from yesterday 03/26/21; Cdiff positive with ongoing diarrhea. E. coli blood cultures pansensitive. Suspect current antibiotic C. difficile etiology, will change to Augmentin--ADD on vancomycin. TWOC catherter today in light of diarhea. 03/27/21; Significant diarrhea, barrier applied, restarted LR last night with 200 bolus and maint at 65ml/hr until diarrhea abates, 03/28/2021; nurses reported IV infiltrated, no order to restart, increase p.o. fluids. Diarrhea much improved only 1 stool now remaining up since last night. No vomiting no nausea, feels much better today, although not optimal likely very close to baseline. Continues with p.o. vancomycin tolerating well, seems to be tolerating Augmentin. Using incentive spirometer much alert 03/29/2021; patient likely now at acute medical baseline however ongoing C. difficile infection but much less stools, since acute illness, bacteremia, C. difficile fraction with hypoxia this did make him considerable weak and deconditioning. Will transition into swing bed after physical therapy evaluates patient. General: Reports: Weakness (feeling better overall, much more alert, less SOB,) HEENT: Reports: No Symptoms Pulmonary: Reports: Shortness of Breath (at baseline) Cardiovascular: Denies: Chest Pain, Palpitations, Orthopnea, Edema Gastrointestinal: Reports: Diarrhea (MUCH improved, 2 BMs per shift) Skin: Reports: Pallor Neurological: Denies: Confusion Psychiatric: Denies: Confusion - Exam Quality Assessment: Supplemental Oxygen General: Alert, Oriented, Cooperative Lungs: Clear to Auscultation. No: Crackles Cardiovascular: Regular Rate, Irregular Rhythm GI/Abdominal Exam: Soft, No Distention. No: Guarding, Rigid, Rebound Back Exam: No: CVA Tenderness (L), CVA Tenderness (R) Extremities: No Pedal Edema Skin: Other (erythematous perineum) Neurological: Normal Speech, Normal Tone Psy/Mental Status: Alert, Normal Affect Medication changes/adjustments during this acute admission Added vancomycin Added Augmentin Continue cephalosporin Added Flomax Disposition: patient likely now at acute medical baseline however ongoing C. difficile infection but much less stools, since acute illness, bacteremia, C. difficile fraction with hypoxia this did make him considerable weak and deconditioning. Will transition into swing bed after physical therapy evaluates patient. - Patient Data Vitals - Most Recent: Last Vital Signs Temp 97.9 F 03/29/21 06:49 Pulse 83 03/29/21 08:31 Resp 22 H 03/29/21 06:49 BP 119/56 L 03/29/21 08:31 Pulse Ox 98 03/29/21 07:44 Weight - Most Recent: 163 lb I&O - Last 24 hours: Intake & Output 03/28/21 03/29/21 03/29/21 22:59 06:59 14:59 Intake Total 440 0 Output Total 175 100 Balance 265 -100 Med Orders - Current: Current Medications Acetaminophen (Acetaminophen 325 Mg Tab) 650 mg PO Q4H PRN PRN Reason: Pain Last Admin: 03/28/21 23:08 Dose: 650 mg Documented by: Amoxicillin/Clavulanate Potassium (Amoxicillin/Clavulanate K 875-125 Mg Tab) 1 tab PO Q12H [facility] Last Admin: 03/29/21 08:32 Dose: 1 tab Documented by: Ascorbic Acid (Ascorbic Acid 500 Mg Tab) 1,000 mg PO DAILY [facility] Last Admin: 03/29/21 08:32 Dose: 1,000 mg Documented by: Atropine Sulfate (Atropine 0.1 Mg/Ml 10 Ml Syringe) 0 mg IVPUSH ASDIRECTED PRN PRN Reason: Heart. Bisacodyl (Bisacodyl 10 Mg Supp) 10 mg RECTAL DAILY PRN PRN Reason: Constipation Calamine/Phenol (Menthol/Zinc Oxide Ointment 113 Gm Tube) 0 gm TOP Q6H PRN PRN Reason: Other Last Admin: 03/27/21 03:38 Dose: 1 applic Documented by: Cholecalciferol (Cholecalciferol (Vitamin D3) 25 Mcg Tab) 25 mcg PO DAILY [facility] Last Admin: 03/29/21 08:32 Dose: 25 mcg Documented by: Epinephrine HCl (Epinephrine 1:10,000 1 Mg/10 Ml Syringe) 1 mg IVPUSH ASDIRECTED PRN PRN Reason: Heart. Folic Acid (Folic Acid 1 Mg Tab) 1 mg PO DAILY [facility] Last Admin: 03/29/21 08:33 Dose: 1 mg Documented by: Furosemide (Furosemide 20 Mg Tab) 20 mg PO DAILY [facility] Last Admin: 03/29/21 08:33 Dose: 20 mg Documented by: Lactated Ringer's (Ringers, Lactated) 1,000 mls @ 65 mls/hr IV ASDIRECTED [facility] Last Admin: 03/27/21 10:43 Dose: 65 mls/hr Documented by: Lidocaine HCl (Lidocaine 2% 100 Mg/5 Ml Syringe) 0 mg IVPUSH ASDIRECTED PRN PRN Reason: Heart. Magnesium Oxide (Magnesium Oxide 500 Mg Tab) 250 mg PO BID [facility] Last Admin: 03/29/21 08:32 Dose: 250 mg Documented by: Metoprolol Tartrate (Metoprolol Tartrate 25 Mg Tab) 12.5 mg PO BID [facility] Last Admin: 03/29/21 08:31 Dose: 12.5 mg Documented by: Mirtazapine (Mirtazapine 15 Mg Tab) 7.5 mg PO BEDTIME [facility] Last Admin: 03/28/21 20:15 Dose: 7.5 mg Documented by: Nicotine (Nicotine 21 Mg/24 Hr Patch) 21 mg TRDERM DAILY [facility] Last Admin: 03/29/21 08:32 Dose: 21 mg Documented by: Nitroglycerin (Nitroglycerin 0.4 Mg Tab.Sl) 0.4 mg SL ASDIRECTED PRN PRN Reason: Heart. Fluticasone/Umeclidin/Vilanter 28 Puff/Inhaler Own Med 1 puff INH DAILY [facility] Last Admin: 03/29/21 08:31 Dose: 1 puff Documented by: Oxycodone/Acetaminophen (Acetaminophen/Oxycodone 325-5 Mg Tab) 1 tab PO Q6H PRN PRN Reason: Pain (moderate 4-6) Polyethylene Glycol (Polyethylene Glycol 3350 Powder 17 Gm Packet) 17 gm PO DAILY PRN PRN Reason: Constipation Potassium Chloride (Potassium Chloride 10 Meq Tab.Er) 20 meq PO DAILY [facility] Last Admin: 03/29/21 08:32 Dose: 20 meq Documented by: Prochlorperazine Maleate (Prochlorperazine 5 Mg Tab) 10 mg PO QID PRN PRN Reason: Nausea/Vomiting Senna/Docusate Sodium (Docusate Sodium/Sennosides 50-8.6 Mg Tab) 1 tab PO DAILY PRN PRN Reason: Constipation Sodium Chloride (Sodium Chloride 0.9% 10 Ml Syringe) 10 ml FLUSH Q8HR PRN PRN Reason: keep vein open Last Admin: 03/29/21 08:34 Dose: 10 ml Documented by: Tamsulosin HCl (Tamsulosin 0.4 Mg Cap.Er) 0.4 mg PO PCBREAKFAST [facility] Last Admin: 03/29/21 08:32 Dose: 0.4 mg Documented by: Vancomycin HCl (Vancomycin 125 Mg Cap) 125 mg PO QID [facility] Stop: 04/05/21 23:59 Last Admin: 03/29/21 08:32 Dose: 125 mg Documented by: Discontinued Medications Amoxicillin/Clavulanate Potassium (Amoxicillin/Clavulanate K 875-125 Mg Tab) 1 tab PO ONETIME ONE Stop: 03/26/21 13:01 Last Admin: 03/26/21 13:08 Dose: 1 tab Documented by: Cefdinir (Cefdinir 300 Mg Cap) 300 mg PO BID [facility] Stop: 03/31/21 21:01 Last Admin: 03/26/21 08:24 Dose: 300 mg Documented by: Ceftriaxone Sodium (Ceftriaxone 2 Gm Vial) 2 gm IVPUSH ONETIME ONE Stop: 03/23/21 18:44 Last Admin: 03/23/21 19:39 Dose: 2 gm Documented by: Furosemide (Furosemide 40 Mg/4 Ml Vial) 20 mg IVPUSH NOW ONE Stop: 03/24/21 13:32 Last Admin: 03/24/21 13:48 Dose: 20 mg Documented by: Furosemide (Furosemide 20 Mg Tab) 20 mg PO ONETIME ONE Stop: 03/25/21 17:31 Last Admin: 03/25/21 17:49 Dose: 20 mg Documented by: Sodium Chloride (Normal Saline) 100 mls @ 200 mls/hr IV ASDIRECTED [facility] Last Admin: 03/23/21 21:00 Dose: 200 mls/hr Documented by: Sodium Chloride (Normal Saline) 500 mls @ 75 mls/hr IV ASDIRECTED [facility] Stop: 03/24/21 02:33 Last Admin: 03/23/21 23:10 Dose: 75 mls/hr Documented by: Magnesium Sulfate 2 gm/ Premix 50 mls @ 25 mls/hr IV ONETIME ONE Stop: 03/24/21 00:32 Last Admin: 03/23/21 23:10 Dose: 25 mls/hr Documented by: Sodium Chloride (Normal Saline) Confirm Administered Dose 1,000 mls @ as directed .ROUTE .STK-MED ONE Stop: 03/25/21 09:48 Last Admin: 03/25/21 11:26 Dose: Not Given Documented by: Sodium Chloride (Normal Saline) 1,000 mls @ 999 mls/hr IV .BOLUS ONE Stop: 03/25/21 11:11 Last Admin: 03/25/21 09:40 Dose: 999 mls/hr Documented by: Iopamidol (Iopamidol 755 Mg/Ml 75 Ml Bottle) 75 ml IVPUSH ONETIME ONE Stop: 03/23/21 21:12 Last Admin: 03/23/21 21:00 Dose: 75 ml Documented by: Lidocaine HCl (Lidocaine 2% Jelly 5 Ml Tube) 5 ml TOP ONETIME ONE Stop: 03/23/21 20:17 Last Admin: 03/23/21 19:55 Dose: 5 ml Documented by:
== END 2021-03-29 10:52 | disposition swing bed (61) | DRG 871 ==
LOC: KA.MS 18:35
PROVIDERS: ADMIT Nurse Practitioner Family; ATTEND Family Medicine
DX: A41.50 Gram-negative sepsis, unspecified (principal); J96.21 Acute and chronic respiratory failure with hypoxia; R65.21 Severe sepsis with septic shock; K82.2 Perforation of gallbladder; I50.32 Chronic diastolic (congestive) heart failure; A04.72 Enterocolitis due to Clostridium difficile, not specified as recurrent; I48.91 Unspecified atrial fibrillation; J44.9 Chronic obstructive pulmonary disease, unspecified; K86.89 Other specified diseases of pancreas; D69.6 Thrombocytopenia, unspecified; R34 Anuria and oliguria; R33.9 Retention of urine, unspecified; E83.42 Hypomagnesemia; G47.00 Insomnia, unspecified; I11.0 Hypertensive heart disease with heart failure; Z66 Do not resuscitate; E87.6 Hypokalemia; Z90.49 Acquired absence of other specified parts of digestive tract; Z85.118 Personal history of other malignant neoplasm of bronchus and lung; Z79.01 Long term (current) use of anticoagulants; Z92.21 Personal history of antineoplastic chemotherapy; Z86.16 Personal history of COVID-19; Z98.890 Other specified postprocedural states
CPT/HCPCS: 36415; 51702; 71045; 71275; 80048; 80053; 83735; 83880; 84484; 85025; 87324; 87449; 93005; A9270-GY; J0696; J1940; J3475; J7030; J7040; J7120; Q9967

== ENCOUNTER 2021-03-29 10:54 | Inpatient (IN) | payer MEDICARE, OTHER ==
[~2021-03-29 10:54] MED LIST changes: +Acetaminophen 325 MG Tab PO PRN; +Acetaminophen/oxyCODONE 325-5 MG Tab PO PRN; +Atropine 0.1 MG/ML 10 ML Syringe IVPUSH PRN; +Bisacodyl 10 MG Supp RECTAL PRN; +EPINEPHrine 1:10,000 1 MG/10 ML Syringe IVPUSH PRN; +Lidocaine 2% 100 MG/5 ML Syringe IVPUSH PRN; +Menthol/Zinc Oxide Ointment 113 GM Tube TOP PRN; +Nitroglycerin 0.4 MG Tab.SL SL PRN; +Polyethylene Glycol 3350 Powder 17 GM Packet PO PRN; +Prochlorperazine 5 MG Tab PO PRN; +Sodium Chloride 0.9% 10 ML Syringe FLUSH PRN; -Sodium Chloride 0.9% 5 ML Syringe FLUSH PRN
--- NOTE | 2021-03-29 11:25 | PCM.HP.2 ---
H&P History of Present Illness - General Date of Service: 03/29/21 Admit Problem/Dx: Admission Diagnosis/Problem Admission Diagnosis/Problem Bacteremia - Related Data Allergies/Adverse Reactions: Allergies Allergy/AdvReac Type Severity Reaction Status Date / Time No Known Drug Allergies Allergy NKDA Verified 03/24/21 07:28 Home Medications: Home Meds Potassium Chloride 20 meq PO DAILY #30 tablet.er 02/25/21 [Rx] Acetaminophen 650 mg PO Q4H PRN 03/22/21 [History] Ascorbic Acid [Vitamin C] 1,000 mg PO DAILY 03/22/21 [History] Bisacodyl [Laxative Suppository] 10 mg RC DAILY PRN 03/22/21 [History] Cholecalciferol (Vitamin D3) [Vitamin D] 1,000 unit PO DAILY 03/22/21 [History] Fluticasone/Umeclidin/Vilanter [Trelegy Ellipta 100-62.5-25 MCG] 1 puff INH DAILY 03/22/21 [History] Folic Acid 1 mg PO DAILY 03/22/21 [History] Furosemide [Lasix] 20 mg PO DAILY 03/22/21 [History] Magnesium Oxide 250 mg PO BID 03/22/21 [History] Metoprolol Tartrate [Lopressor] 12.5 mg PO BID 03/22/21 [History] Mirtazapine [Remeron] 7.5 mg PO BEDTIME 03/22/21 [History] Nicotine [Nicotine Patch] 21 mg TD DAILY 03/22/21 [History] Prochlorperazine [Compazine] 10 mg PO QID PRN 03/22/21 [History] Sennosides 1 tab PO DAILY PRN 03/22/21 [History] oxyCODONE HCl/Acetaminophen [Oxycodone-Acetaminophen 5-325] 1 tab PO Q6H PRN 03/22/21 [History] polyethylene glycoL 3350 [MiraLAX] 17 gm PO DAILY PRN 03/22/21 [History] Past Medical History HEENT History: Reports: Impaired Vision, Sinusitis Cardiovascular History: Reports: Afib, Hypertension, SOB on Exertion Respiratory History: Reports: Bronchitis, Recurrent, COPD, SOB, Other (See Below) Other Respiratory History: Lung CA Gastrointestinal History: Reports: Other (See Below) Other Gastrointestinal History: peforated gallbladder s/p cholescystectomy February 2021 w/ abscess drain (IJ drain) Genitourinary History: Reports: Other (See Below) Other Genitourinary History: Pt denies history, however, catheter insertion indicates enlarged prostate. Musculoskeletal History: Reports: Arthritis Endocrine/Metabolic History: Reports: Vitamin D Deficiency Hematologic History: Reports: Anemia, Folic Acid, Iron Deficiency Immunologic History: Reports: Immunosuppression Other Immunologic History: history of chemo and radiation in 2001; current chemo for metastatic lung CA Oncologic (Cancer) History: Reports: Colon, Lung, Metastatic Other Oncologic History: metastatic lung cancer - Infectious Disease History Infectious Disease History: Reports: Novel Coronavirus - Past Surgical History HEENT Surgical History: Reports: None Cardiovascular Surgical History: Reports: None Respiratory Surgical History: Reports: None GI Surgical History: Reports: Cholecystectomy, Colonoscopy, Other (See Below) Other GI Surgeries/Procedures: bowel resection Male Surgical History: Reports: None Musculoskeletal Surgical History: Reports: None Other Oncologic Surgeries/Procedures: colon resection in 2001 Social & Family History - Family History Family Medical History: No Pertinent Family History - Caffeine Use Caffeine Use: Reports: None H&P Review of Systems - Review of Systems: Review Of Systems: See Below General: Reports: Malaise, Weakness, Fatigue. Denies: Fever, Diaphoresis, Decreased Appetite HEENT: Reports: Other (Answers lost [facility]). Denies: Hearing Changes, Sore Throat Pulmonary: Reports: Shortness of Breath, Cough. Denies: Wheezing, Sputum Cardiovascular: Reports: Dyspnea on Exertion. Denies: Chest Pain, Orthopnea, PND, Edema, Lightheadedness, Blood Pressure Problem Gastrointestinal: Reports: Diarrhea (Diarrhea improving,). Denies: Abdominal Pain, Constipation, Distension, Melena, Nausea Genitourinary: Reports: Retention Skin: Reports: Pallor, Erythema Psychiatric: Denies: Confusion, Anxiety Neurological: Reports: Pre-Existing Deficit, Weakness. Denies: Confusion, Headache, Numbness, Seizure, Syncope, Change in Speech Hematologic/Lymphatic: Reports: Anemia Immunologic: Reports: No Symptoms Exam - Exam Exam: See Below - Exam Quality Assessment: Supplemental Oxygen, DVT Prophylaxis (No anticoagulation due to thrombocytopenia. ) General: Alert, Oriented. No: Mild Distress Lungs: Crackles Cardiovascular: Regular Rate, Regular Rhythm GI/Abdominal Exam: Soft. No: No Distention, Distended (Male) Exam: Rash Rectal (Males) Exam: Deferred Back Exam: No: CVA Tenderness (L), CVA Tenderness (R) Extremities: No Pedal Edema Skin: Rash Neurological: Strength Equal Bilateral, Normal Speech, Normal Tone Neuro Extensive - Mental Status: Alert, Oriented x3, Memory Intact Neuro Extensive - Motor, Sensory, Reflexes: No: Receptive Aphasia, Expressive Aphasia, Facial palsy (L) Psychiatric: Alert, Labile Mood Problem List Initiated/Reviewed/Updated: Yes Orders Last 24hrs: Active Orders 24 hr Category Date Time Status Patient Status [ADT] Routine ADT 03/29/21 10:54 Active Communication Order [RC] 09 Care 03/29/21 10:54 Active Communication Order [RC] Care 03/29/21 10:54 Active Communication Order [RC] Care 03/29/21 10:54 Active Dietary Supplements [RC] TIDMEALS Care 03/29/21 10:54 Active Thayer Catheter Insertion [Insert Urinary Catheter] [OM. Care 03/29/21 10:54 Ordered PC] Q24H Thayer Catheter Insertion [Insert Urinary Catheter] [OM. Care 03/29/21 10:54 Ordered PC] Q24H Height and Weight [RC] DAILY Care 03/29/21 10:54 Active Intake and Output [RC] QSHIFT Care 03/29/21 10:54 Active Oxygen Therapy [RC] PRN Care 03/29/21 10:54 Active RT Incentive Spirometry [RC] Q1HWA Care 03/29/21 10:54 Active Up With Assistance [RC] ASDIRECTED Care 03/29/21 10:54 Active Urinary Catheter Assessment [RC] ASDIRECTED Care 03/29/21 10:54 Active Urinary Catheter Assessment [RC] ASDIRECTED Care 03/29/21 10:54 Active Vital Signs [RC] Q4H Care 03/29/21 10:54 Active Consult to Dietary [Consult to Food Vendor] [CONS] Cons 03/29/21 10:54 Active Routine PT Evaluation and Treatment [CONS] Routine Cons 03/29/21 10:54 Active Mechanical Soft Diet [DIET] Diet 03/29/21 Breakfast Active Acetaminophen [TylenoL] Med 03/29/21 10:54 Active 650 mg PO Q4H PRN Acetaminophen/oxyCODONE [Percocet 325-5 MG] Med 03/29/21 10:54 Active 1 tab PO Q6H PRN Amoxicillin/Clavulanate K [Augmentin 875 MG/125 MG] Med 03/29/21 21:00 Active 1 tab PO Q12H Ascorbic Acid [Vitamin C] Med 03/30/21 09:00 Active 1,000 mg PO DAILY Atropine [Atropine 0.1 MG/ML] Med 03/29/21 10:54 Active See Dose Instructions IVPUSH ASDIRECTED PRN Cholecalciferol (Vitamin D3) [Vitamin D3] Med 03/30/21 09:00 Active 25 mcg PO DAILY Docusate Sodium/Sennosides [Senna Plus] Med 03/29/21 10:54 Active 1 tab PO DAILY PRN EPINEPHrine [EPINEPHrine 1:10,000] Med 03/29/21 10:54 Active 1 mg IVPUSH ASDIRECTED PRN Fluticasone/Umeclidin/Vilanter Med 03/30/21 09:00 Ordered 1 puff INH DAILY Folic Acid Med 03/30/21 09:00 Active 1 mg PO DAILY Furosemide [Lasix] Med 03/30/21 09:00 Active 20 mg PO DAILY Lactated Ringers [Ringers, Lactated] 1,000 ml Med 03/29/21 10:54 Active IV ASDIRECTED Lidocaine 2% [Xylocaine 2%] Med 03/29/21 10:54 Active See Dose Instructions IVPUSH ASDIRECTED PRN Magnesium Oxide Med 03/29/21 21:00 Active 250 mg PO BID Menthol/Zinc Oxide [Calmoseptine] Med 03/29/21 10:54 Active 0 gm TOP Q6H PRN Metoprolol Tartrate [Lopressor] Med 03/29/21 21:00 Active 12.5 mg PO BID Mirtazapine [Remeron] Med 03/29/21 21:00 Active 7.5 mg PO BEDTIME Nicotine [Habitrol] Med 03/30/21 09:00 Active 21 mg TRDERM DAILY Nitroglycerin [Nitrostat] Med 03/29/21 10:54 Active 0.4 mg SL ASDIRECTED PRN Potassium Chloride [Klor-Con 10] Med 03/30/21 09:00 Active 20 meq PO DAILY Prochlorperazine [Compazine] Med 03/29/21 10:54 Active 10 mg PO QID PRN Sodium Chloride 0.9% [Saline Flush] Med 03/29/21 10:54 Active 10 ml FLUSH Q8HR PRN Tamsulosin [Flomax] Med 03/30/21 09:00 Active 0.4 mg PO PCBREAKFAST Vancomycin [Vancocin 125 MG Capsule] Med 03/29/21 13:00 Active 125 mg PO QID bisacodyL [Dulcolax] Med 03/29/21 10:54 Active 10 mg RECTAL DAILY PRN polyethylene glycoL 3350 [MiraLAX] Med 03/29/21 10:54 Active 17 gm PO DAILY PRN Isolation [COMM] Stat Oth 03/29/21 10:54 Ordered Resuscitation Status Routine Resus Stat 03/29/21 10:54 Ordered Medication Orders Acetaminophen (Acetaminophen 325 Mg Tab) 650 mg PO Q4H PRN PRN Reason: Pain Amoxicillin/Clavulanate Potassium (Amoxicillin/Clavulanate K 875-125 Mg Tab) 1 tab PO Q12H KELY Ascorbic Acid (Ascorbic Acid 500 Mg Tab) 1,000 mg PO DAILY KELY Atropine Sulfate (Atropine 0.1 Mg/Ml 10 Ml Syringe) 0 mg IVPUSH ASDIRECTED PRN PRN Reason: Heart. Bisacodyl (Bisacodyl 10 Mg Supp) 10 mg RECTAL DAILY PRN PRN Reason: Constipation Calamine/Phenol (Menthol/Zinc Oxide Ointment 113 Gm Tube) 0 gm TOP Q6H PRN PRN Reason: Other Cholecalciferol (Cholecalciferol (Vitamin D3) 25 Mcg Tab) 25 mcg PO DAILY PENDING SALE TO [facility] Epinephrine HCl (Epinephrine 1:10,000 1 Mg/10 Ml Syringe) 1 mg IVPUSH ASDIRECTED PRN PRN Reason: Heart. Folic Acid (Folic Acid 1 Mg Tab) 1 mg PO DAILY PENDING SALE TO [facility] Furosemide (Furosemide 20 Mg Tab) 20 mg PO DAILY PENDING SALE TO [facility] Lactated Ringer's (Ringers, Lactated) 1,000 mls @ 65 mls/hr IV ASDIRECTED KELY Lidocaine HCl (Lidocaine 2% 100 Mg/5 Ml Syringe) 0 mg IVPUSH ASDIRECTED PRN PRN Reason: Heart. Magnesium Oxide (Magnesium Oxide 500 Mg Tab) 250 mg PO BID PENDING SALE TO [facility] Metoprolol Tartrate (Metoprolol Tartrate 25 Mg Tab) 12.5 mg PO BID PENDING SALE TO [facility] Mirtazapine (Mirtazapine 15 Mg Tab) 7.5 mg PO BEDTIME KELY Nicotine (Nicotine 21 Mg/24 Hr Patch) 21 mg TRDERM DAILY PENDING SALE TO [facility] Nitroglycerin (Nitroglycerin 0.4 Mg Tab.Sl) 0.4 mg SL ASDIRECTED PRN PRN Reason: Heart. Non-Formulary Medication (Fluticasone/Umeclidin/Vilanter) 1 puff INH DAILY PENDING SALE TO [facility] Oxycodone/Acetaminophen (Acetaminophen/Oxycodone 325-5 Mg Tab) 1 tab PO Q6H PRN PRN Reason: Pain (moderate 4-6) Polyethylene Glycol (Polyethylene Glycol 3350 Powder 17 Gm Packet) 17 gm PO DAILY PRN PRN Reason: Constipation Potassium Chloride (Potassium Chloride 10 Meq Tab.Er) 20 meq PO DAILY PENDING SALE TO [facility] Prochlorperazine Maleate (Prochlorperazine 5 Mg Tab) 10 mg PO QID PRN PRN Reason: Nausea/Vomiting Senna/Docusate Sodium (Docusate Sodium/Sennosides 50-8.6 Mg Tab) 1 tab PO DAILY PRN PRN Reason: Constipation Sodium Chloride (Sodium Chloride 0.9% 10 Ml Syringe) 10 ml FLUSH Q8HR PRN PRN Reason: keep vein open Tamsulosin HCl (Tamsulosin 0.4 Mg Cap.Er) 0.4 mg PO PCBREAKFAST PENDING SALE TO [facility] Vancomycin HCl (Vancomycin 125 Mg Cap) 125 mg PO QID PENDING SALE TO [facility] Stop: 04/05/21 23:59 Assessment/Plan Comment:: History of present illness Mr Figueroa is a 75 year old male with a significant PMH of Metastatic non-small cell lung cancer on chemotherapy, pancreatic mass, COPD, thrombocytopenia, atrial fibrillation/flutter not on anticoagulation admitted to [facility] 03/22/21 initially swing bed for PT/OT services. Patient was hospitalized at [facility] 03/15/21 - 03/22/21 for septic shock secondary to perforated gallbladder, gram negative bacteremia with E. Coli on blood cultures. On admission to [facility] he was started on Zosyn, switched to Ceftriaxone 03/19. Discharged on oral Vantin 200 mg 2 times a day for 8 days (total 14 days) given bacteremia. He underwent cholecystectomy with drainage tube placement on 03/16/21. limited drainage output per records. Patient was admitted swing bed for rehabilitative services however changed from swing bed status to inpatient on 03/23/21 for multiple acute concerns including worsening hypoxia, decreased urine output. During his acute care stay he developed considerable weakness and deconditioning therefore was placed into prison/bed status. (See acute care record for full hospitalization Course). Primary prison problems --Weakness/deconditioning --Protein malnutrition, dietary consultation --C. difficile infection, p.o. vancomycin, stop date. DC'd cephlasporin and added Augmentin during acute care stay --Gram-negative bacteremia, Added Augmentin during acute stay (septic shock resolved) --Acute on chronic hypoxic respiratory failure, Liklely at baseline --COPD - Home oxygen 3 L continuously--now requires 5L - on Trelegy - Acute admission CXR showing infiltrate, atelectasis, and effusion of left lung base ? pneumonia. PE a consideration - CTA done with no evidence of PE. No pneumonia as questioned on x-ray. mild pleural reaction bilaterally. Aatelectasis Left lower lobe. --Acute on Chronic diastolic CHF - BNP 400s - Wt down ~5 lbs from admission,, has been variable acute stay due to the need for periodic IV fluid challenges - ECHO 01/17/21 normal LV systolic function. EF 65%. grade 1 diastolic dysfunction. no significant valvular abnormalities. --AUR -Failed TWOC of 03/26; replaced indwelling. Added flomax on acute stay, will repeat TWOC next week. --Perforated gallbladder- -s/p cholecystectomy with percutaneous cholecystostomy drain in place. - limited drainage output (5ml) - IR recommendation to keep drain usually for 6 weeks to have time to perform a tract before removal. --Thrombocytopenia- - acute on chronic secondary to chemotherapy. - stable. continue to monitor - No report of bleeding. --Non-small cell lung cancer of the RUL- - metastasis to the pancreas, left adrenal gland, left abdominal wall site- - s/p radiation therapy to the pancreatic mass. - s/p chemo with carboplatin + taxol x 4 cycles. Added keytruda with cycle 3. 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 - followed by oncology at [facility]. Chronic conditions anemia- secondary to chemo. 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 planned for during hospitalization however due to pulmonary status GI Recommend outpatient ERCP in one month. tobacco use disorder- NRT Hypokalemia- 20 MeQ K+ daily. Will reduce to 10 Atrial fibrillation:8/5started low-dose [id number] twice a day which was continued at discharge. No anticoagulation due to thrombocytopenia. Chronic diastolic CHF- on lasix 20mg with potassium supplement. dilatation of the aorta- noted on ECHO. measuring 41.0 mm Nausea- compazine PRN Hx of Constipation (however diarrhea today) miralax daily. Senna PRN. insomnia- remeron FEN: mechanical soft diet. (Dentures were lost during hospitalization in [place]. Patient reports difficulty with chewing as a result. Dietary to work with patient with meal selection. CODE STATUS: DNR/DNI POLST form reviewed with patient and signed by patient with presents at bedside by admitting provider during acute admission Medication changes/adjustments made during acute admission --DC'd cephalosporin --Added vancomycin --Added Augmentin --Added Flomax Disposition: --We will transfer from acute care into prison/swing bed. Low patient I suspect his quite close to his baseline he did get quite deconditioned and weak during acute hospitalization due to C. difficile infection, bacteremia along with acute congestive heart failure/hypoxia. Goal therapy to evaluate patient. - Mortality Measure Prognosis:: Poor
[2021-03-29] MEDS: Vancomycin 125 MG Cap PO SCH ×3 (13:50→20:15)
[2021-03-29] MEDS: Magnesium Oxide 500 MG Tab PO SCH (20:13)
[2021-03-29] MEDS: Mirtazapine 15 MG Tab PO SCH (20:13)
[2021-03-29] MEDS: Amoxicillin/Clavulanate K 875-125 MG Tab PO SCH (20:15)
[2021-03-29] MEDS: Metoprolol Tartrate 25 MG Tab PO SCH (20:16)
--- NOTE | 2021-03-30 06:23 | PT ---
PATIENT NAME: BARBY ASHRAF MEDICAL RECORD NUMBER: : [id number] DATE: 03/29/2021 REFERRING PHYSICIAN: ANGIE Lane ONSET DATE: 03/29/2021. DIAGNOSIS: Bilateral lower extremity weakness and deconditioning. SUBJECTIVE: The patient was admitted to [facility] for acute condition for treatment of C diff. The patient's acute stay limited his physical abilities greatly. The patient has complaint of very limited strength in bilateral lower extremities, more evident on the right. The patient has not been able to self transfer from supine to seated position. The patient chooses not to sit in the chair upright as he is uncomfortable with the transfer portion with nursing. The patient has relied on a bed redmond for his toileting efforts. He does have a drain tube in for the continued treatment of C diff. The patient denies pain at this time. The patient does agree to try some in-bed activities with me today to make an effort to try to start to improve his strength as he does have a goal of being able to return to home with his . The patient's living condition is in home with three stairs to get in and out of the house. Prior to admission for his infection, the patient was able to ambulate independently inside a front- wheeled walker. The patient does tell me that if he is not able to improve his strength that he knows that he will need to probably go to a [facility] facility at some point. He does remind me that he does have complications with breathing at times as he does have a history of lung cancer. OBJECTIVE: TREATMENT TIME: 1120 hours to 1205 hours. TREATMENT: Consisted of physical therapy swing bed evaluation and 15 minutes of therapeutic activities consisting of the patient assisted in transfer from supine with the head of the bed and upright position to seated edge of bed with a 5 minute sit time and return to supine position. The patient did perform 10 heel slides and ankle pumps bilaterally. OBSERVATION: The patient is semi-side lying on his left with a pillow between his knees upon arrival. The patient does agree to participate with PT. The patient does have a catheter and drain tube in place. PAIN: The patient denies pain. PALPATION: Negative. RANGE OF MOTION: Active range of motion of bilateral upper extremities is within functional limits grossly. Active range of motion of bilateral lower extremities is within functional limits in all planes. Passive range of motion of bilateral lower extremities is grossly within functional limits. MANUAL MUSCLE TEST: Right lower extremity is grade 2+/5 in right hip flexion and 3/5 in all other planes of right hip, grade 3/5 in right knee flexion and extension and within functional limits in all planes of the right foot and ankle. Left lower extremity; left hip flexion is grade 3+/5 with all other planes of left hip grade 4/5. Manual muscle test of the knee, foot, and ankle are grossly 4/5. SPECIAL TESTS: The patient is not able to be assessed in seated balance as he is not able to maintain this position independently. NEUROLOGIC FINDINGS: Seem grossly intact. ASSESSMENT: Impression: The patient has become extremely deconditioned and has been bedridden since his admission time a week ago. The patient does appear to be somewhat motivated today after some encouragement from an explanation as to why this would benefit him. The patient is able to get 50% of his transfer to seated edge of bed then requiring maximal assist of PT. I do believe that if the patient continues motivated, he may benefit from strengthening conditioning activities, transfer training, and OT. The patient's extreme limits to bilateral lower extremity strength are significantly prevented him from being able to stand. PLAN: PT will be five times a week during the swing bed stay. If the patient does not continue motivated or willing to comply with PT, there will be a suggested referral out to a [facility] facility.
[2021-03-30] MEDS: Ascorbic Acid 500 MG Tab PO SCH (09:06)
[2021-03-30] MEDS: Metoprolol Tartrate 25 MG Tab PO SCH ×2 (09:07→20:36)
[2021-03-30] MEDS: Cholecalciferol (Vitamin D3) 25 MCG Tab PO SCH (09:07)
[2021-03-30] MEDS: Vancomycin 125 MG Cap PO SCH ×4 (09:08→20:29)
[2021-03-30] MEDS: Potassium Chloride 10 MEQ Tab.ER PO SCH (09:08)
[2021-03-30] MEDS: Furosemide 20 MG Tab PO SCH (09:08)
[2021-03-30] MEDS: Tamsulosin 0.4 MG Cap.ER PO SCH (09:09)
[2021-03-30] MEDS: Magnesium Oxide 500 MG Tab PO SCH ×2 (09:09→20:39)
[2021-03-30] MEDS: Amoxicillin/Clavulanate K 875-125 MG Tab PO SCH ×2 (09:10→20:32)
[2021-03-30] MEDS: Folic Acid 1 MG Tab PO SCH (09:10)
[2021-03-30] MEDS: Nicotine 21 MG/24 Hr Patch TRDERM SCH (09:11)
[2021-03-30] MEDS: Fluticasone/Umeclidin/Vilanter 1 PUFF INH SCH (09:13)
[2021-03-30] MEDS: Mirtazapine 15 MG Tab PO SCH (20:30)
[2021-03-31] MEDS: Fluticasone/Umeclidin/Vilanter 1 PUFF INH SCH (08:45)
[2021-03-31] MEDS: Vancomycin 125 MG Cap PO SCH ×4 (08:46→20:53)
[2021-03-31] MEDS: Magnesium Oxide 500 MG Tab PO SCH ×2 (08:46→20:53)
[2021-03-31] MEDS: Tamsulosin 0.4 MG Cap.ER PO SCH (08:46)
[2021-03-31] MEDS: Amoxicillin/Clavulanate K 875-125 MG Tab PO SCH ×2 (08:46→20:52)
[2021-03-31] MEDS: Cholecalciferol (Vitamin D3) 25 MCG Tab PO SCH (08:46)
[2021-03-31] MEDS: Potassium Chloride 10 MEQ Tab.ER PO SCH (08:46)
[2021-03-31] MEDS: Furosemide 20 MG Tab PO SCH (08:47)
[2021-03-31] MEDS: Metoprolol Tartrate 25 MG Tab PO SCH ×2 (08:47→20:54)
[2021-03-31] MEDS: Nicotine 21 MG/24 Hr Patch TRDERM SCH (08:47)
[2021-03-31] MEDS: Folic Acid 1 MG Tab PO SCH (08:47)
[2021-03-31] MEDS: Ascorbic Acid 500 MG Tab PO SCH (08:47)
[2021-03-31] MEDS: guaiFENesin 600 MG Tab.ER PO SCH ×2 (10:00→20:52)
[2021-03-31] MEDS: Mirtazapine 15 MG Tab PO SCH (20:53)
[2021-04-01] MEDS: Furosemide 20 MG Tab PO SCH (09:12)
[2021-04-01] MEDS: guaiFENesin 600 MG Tab.ER PO SCH ×2 (09:12→20:15)
[2021-04-01] MEDS: Ascorbic Acid 500 MG Tab PO SCH (09:13)
[2021-04-01] MEDS: Metoprolol Tartrate 25 MG Tab PO SCH ×2 (09:13→21:02)
[2021-04-01] MEDS: Tamsulosin 0.4 MG Cap.ER PO SCH (09:13)
[2021-04-01] MEDS: Folic Acid 1 MG Tab PO SCH (09:14)
[2021-04-01] MEDS: Vancomycin 125 MG Cap PO SCH ×4 (09:14→21:02)
[2021-04-01] MEDS: Potassium Chloride 10 MEQ Tab.ER PO SCH (09:14)
[2021-04-01] MEDS: Cholecalciferol (Vitamin D3) 25 MCG Tab PO SCH (09:15)
[2021-04-01] MEDS: Magnesium Oxide 500 MG Tab PO SCH ×2 (09:15→20:15)
[2021-04-01] MEDS: Nicotine 21 MG/24 Hr Patch TRDERM SCH (09:17)
[2021-04-01] MEDS: Fluticasone/Umeclidin/Vilanter 1 PUFF INH SCH (09:35)
[2021-04-01] MEDS: Mirtazapine 15 MG Tab PO SCH (20:14)
[2021-04-02] MEDS: guaiFENesin 600 MG Tab.ER PO SCH ×2 (08:55→20:52)
[2021-04-02] MEDS: Tamsulosin 0.4 MG Cap.ER PO SCH (08:55)
[2021-04-02] MEDS: Potassium Chloride 10 MEQ Tab.ER PO SCH (08:56)
[2021-04-02] MEDS: Folic Acid 1 MG Tab PO SCH (08:56)
[2021-04-02] MEDS: Vancomycin 125 MG Cap PO SCH ×4 (08:56→20:52)
[2021-04-02] MEDS: Magnesium Oxide 500 MG Tab PO SCH ×2 (08:57→20:54)
[2021-04-02] MEDS: Ascorbic Acid 500 MG Tab PO SCH (08:57)
[2021-04-02] MEDS: Furosemide 20 MG Tab PO SCH (08:58)
[2021-04-02] MEDS: Cholecalciferol (Vitamin D3) 25 MCG Tab PO SCH (08:59)
[2021-04-02] MEDS: Metoprolol Tartrate 25 MG Tab PO SCH ×2 (08:59→20:52)
[2021-04-02] MEDS: Fluticasone/Umeclidin/Vilanter 1 PUFF INH SCH (09:02)
[2021-04-02] MEDS: Nicotine 21 MG/24 Hr Patch TRDERM SCH (09:02)
[2021-04-02] MEDS: Mirtazapine 15 MG Tab PO SCH (20:54)
[2021-04-03] MEDS: Vancomycin 125 MG Cap PO SCH ×4 (08:09→20:27)
[2021-04-03] MEDS: Potassium Chloride 10 MEQ Tab.ER PO SCH (08:09)
[2021-04-03] MEDS: Nicotine 21 MG/24 Hr Patch TRDERM SCH (08:09)
[2021-04-03] MEDS: Cholecalciferol (Vitamin D3) 25 MCG Tab PO SCH (08:10)
[2021-04-03] MEDS: Tamsulosin 0.4 MG Cap.ER PO SCH (08:10)
[2021-04-03] MEDS: Metoprolol Tartrate 25 MG Tab PO SCH ×2 (08:10→20:28)
[2021-04-03] MEDS: Furosemide 20 MG Tab PO SCH (08:10)
[2021-04-03] MEDS: Magnesium Oxide 500 MG Tab PO SCH ×2 (08:10→20:27)
[2021-04-03] MEDS: Folic Acid 1 MG Tab PO SCH (08:10)
[2021-04-03] MEDS: guaiFENesin 600 MG Tab.ER PO SCH ×2 (08:11→20:30)
[2021-04-03] MEDS: Ascorbic Acid 500 MG Tab PO SCH (08:11)
[2021-04-03] MEDS: Fluticasone/Umeclidin/Vilanter 1 PUFF INH SCH (08:12)
--- NOTE | 2021-04-03 10:20 | PCM.PN ---
- General Info Date of Service: 04/03/21 Functional Status: Reports: Pain Controlled, Tolerating Diet, Urinating (weiner Catheter. ), Incentive Spirometry. Denies: New Symptoms - Review of Systems General: Reports: Weakness, Fatigue, Malaise. Denies: Fever, Chills Pulmonary: Reports: Cough. Denies: Wheezing Cardiovascular: Denies: Edema Gastrointestinal: Denies: Diarrhea, Nausea, Vomiting Genitourinary: Reports: Retention Skin: Reports: Pallor Neurological: Reports: Pre-Existing Deficit, Difficulty Walking, Weakness, Gait Disturbance Psychiatric: Denies: Confusion, Agitation - Patient Data Vitals - Most Recent: Last Vital Signs Temp 97.2 F 04/03/21 08:16 Pulse 91 04/03/21 08:16 Resp 31 H 04/03/21 08:16 BP 110/60 04/03/21 08:16 Pulse Ox 91 L 04/03/21 08:16 Weight - Most Recent: 173 lb I&O - Last 24 Hours: Intake & Output 04/02/21 04/03/21 04/03/21 22:59 06:59 14:59 Intake Total 400 50 Output Total 200 200 Balance 200 -150 Med Orders - Current: Current Medications Acetaminophen (Acetaminophen 325 Mg Tab) 650 mg PO Q4H PRN PRN Reason: Pain Last Admin: 03/31/21 01:20 Dose: 650 mg Documented by: Ascorbic Acid (Ascorbic Acid 500 Mg Tab) 1,000 mg PO DAILY [facility] Last Admin: 04/03/21 08:11 Dose: 1,000 mg Documented by: Bisacodyl (Bisacodyl 10 Mg Supp) 10 mg RECTAL DAILY PRN PRN Reason: Constipation Calamine/Phenol (Menthol/Zinc Oxide Ointment 113 Gm Tube) 0 gm TOP Q6H PRN PRN Reason: Other Cholecalciferol (Cholecalciferol (Vitamin D3) 25 Mcg Tab) 25 mcg PO DAILY [facility] Last Admin: 04/03/21 08:10 Dose: 25 mcg Documented by: Folic Acid (Folic Acid 1 Mg Tab) 1 mg PO DAILY [facility] Last Admin: 04/03/21 08:10 Dose: 1 mg Documented by: Furosemide (Furosemide 20 Mg Tab) 20 mg PO DAILY [facility] Last Admin: 04/03/21 08:10 Dose: 20 mg Documented by: Guaifenesin (Guaifenesin 600 Mg Tab.Er) 600 mg PO BID [facility] Last Admin: 04/03/21 08:11 Dose: 600 mg Documented by: Magnesium Oxide (Magnesium Oxide 500 Mg Tab) 250 mg PO BID [facility] Last Admin: 04/03/21 08:10 Dose: 250 mg Documented by: Metoprolol Tartrate (Metoprolol Tartrate 25 Mg Tab) 12.5 mg PO BID [facility] Last Admin: 04/03/21 08:10 Dose: 12.5 mg Documented by: Mirtazapine (Mirtazapine 15 Mg Tab) 7.5 mg PO BEDTIME [facility] Last Admin: 04/02/21 20:54 Dose: 7.5 mg Documented by: Nicotine (Nicotine 21 Mg/24 Hr Patch) 21 mg TRDERM DAILY [facility] Last Admin: 04/03/21 08:09 Dose: 21 mg Documented by: Fluticasone/Umeclidin/Vilanter 1 Puff 1 puff INH DAILY [facility] Last Admin: 04/03/21 08:12 Dose: 1 puff Documented by: Oxycodone/Acetaminophen (Acetaminophen/Oxycodone 325-5 Mg Tab) 1 tab PO Q6H PRN PRN Reason: Pain (moderate 4-6) Polyethylene Glycol (Polyethylene Glycol 3350 Powder 17 Gm Packet) 17 gm PO DAILY PRN PRN Reason: Constipation Potassium Chloride (Potassium Chloride 10 Meq Tab.Er) 20 meq PO DAILY [facility] Last Admin: 04/03/21 08:09 Dose: 20 meq Documented by: Prochlorperazine Maleate (Prochlorperazine 5 Mg Tab) 10 mg PO QID PRN PRN Reason: Nausea/Vomiting Senna/Docusate Sodium (Docusate Sodium/Sennosides 50-8.6 Mg Tab) 1 tab PO DAILY PRN PRN Reason: Constipation Sodium Chloride (Sodium Chloride 0.9% 10 Ml Syringe) 10 ml FLUSH Q8HR PRN PRN Reason: keep vein open Tamsulosin HCl (Tamsulosin 0.4 Mg Cap.Er) 0.4 mg PO PCBREAKFAST [facility] Last Admin: 04/03/21 08:10 Dose: 0.4 mg Documented by: Vancomycin HCl (Vancomycin 125 Mg Cap) 125 mg PO QID [facility] Stop: 04/05/21 23:59 Last Admin: 04/03/21 08:09 Dose: 125 mg Documented by: Discontinued Medications Amoxicillin/Clavulanate Potassium (Amoxicillin/Clavulanate K 875-125 Mg Tab) 1 tab PO Q12H [facility] Stop: 03/31/21 22:00 Last Admin: 03/31/21 20:52 Dose: 1 tab Documented by: Atropine Sulfate (Atropine 0.1 Mg/Ml 10 Ml Syringe) 0 mg IVPUSH ASDIRECTED PRN PRN Reason: Heart. Epinephrine HCl (Epinephrine 1:10,000 1 Mg/10 Ml Syringe) 1 mg IVPUSH ASDIRECTED PRN PRN Reason: Heart. Lactated Ringer's (Ringers, Lactated) 1,000 mls @ 65 mls/hr IV ASDIRECTED KELY Lidocaine HCl (Lidocaine 2% 100 Mg/5 Ml Syringe) 0 mg IVPUSH ASDIRECTED PRN PRN Reason: Heart. Nitroglycerin (Nitroglycerin 0.4 Mg Tab.Sl) 0.4 mg SL ASDIRECTED PRN PRN Reason: Heart. - Exam Quality Assessment: Supplemental Oxygen Urinary Catheter Total Time: 1Days 2Hours General: Alert, Oriented, Cooperative, No Acute Distress Lungs: Clear to Auscultation Cardiovascular: Regular Rhythm GI/Abdominal Exam: Soft Back Exam: No: CVA Tenderness (L), CVA Tenderness (R) Neurological: Normal Speech, Normal Tone Psy/Mental Status: Alert, Labile Mood - Patient Data Result Diagrams: 04/04/21 07:40 04/04/21 07:40 Sepsis Event Note - Evaluation Sepsis Screening Result: Possible Sepsis Risk - Focused Exam Vital Signs: Vital Signs Temp Pulse Pulse Resp BP BP Pulse Ox 04/03/21 08:16 97.2 F 91 31 H 110/60 91 L 04/03/21 08:10 91 110/60 - Problem List Review Problem List Initiated/Reviewed/Updated: Yes - My Orders Last 24 Hours: My Active Orders 04/02/21 10:30 Consult to Occupational Therapy [OT Evaluation and Treatment] [CONS] Routine 04/04/21 05:11 BASIC METABOLIC PANEL,BMP [CHEM] AM CBC WITH AUTO DIFF [HEME] AM - Plan Plan:: History of present illness Mr Figueroa is a 75 year old male with a significant PMH of Metastatic non-small cell lung cancer on chemotherapy, pancreatic mass, COPD, thrombocytopenia, atrial fibrillation/flutter not on anticoagulation admitted to [facility] 03/22/21 initially swing bed for PT/OT services. Patient was hospitalized at [facility] 03/15/21 - 03/22/21 for septic shock secondary to perforated gallbladder, gram negative bacteremia with E. Coli on blood cultures. On admission to [facility] he was started on Zosyn, switched to Ceftriaxone 03/19. Discharged on oral Vantin 200 mg 2 times a day for 8 days (total 14 days) given bacteremia. He underwent cholecystectomy with drainage tube placement on 03/16/21. limited drainage output per records. Patient was admitted swing bed for rehabilitative services however changed from swing bed status to inpatient on 03/23/21 for multiple acute concerns including worsening hypoxia, decreased urine output. During his acute care stay he developed considerable weakness and deconditioning therefore was placed into retirement/bed status. (See acute care record for full hospitalization Course). Primary retirement problems --Weakness/deconditioning --Protein malnutrition, dietary consultation --C. difficile infection, p.o. vancomycin, stop date. DC'd cephlasporin and added Augmentin during acute care stay --Gram-negative bacteremia, Added Augmentin during acute stay (septic shock resolved) --Acute on chronic hypoxic respiratory failure, Liklely at baseline --COPD - Home oxygen 3 L continuously--now requires 5L - on Trelegy - Acute admission CXR showing infiltrate, atelectasis, and effusion of left lung base ? pneumonia. PE a consideration - CTA done with no evidence of PE. No pneumonia as questioned on x-ray. mild pleural reaction bilaterally. Aatelectasis Left lower lobe. --Acute on Chronic diastolic CHF - BNP 400s - Wt down ~5 lbs from admission,, has been variable acute stay due to the need for periodic IV fluid challenges - ECHO 01/17/21 normal LV systolic function. EF 65%. grade 1 diastolic dysfunction. no significant valvular abnormalities. --AUR -Failed TWOC of 03/26; replaced indwelling. Added flomax on acute stay, Repeat TWOC today. --Perforated gallbladder- -s/p cholecystectomy with percutaneous cholecystostomy drain in place. - limited drainage output (5ml) - IR recommendation to keep drain usually for 6 weeks to have time to perform a tract before removal. --Thrombocytopenia- - acute on chronic secondary to chemotherapy. - stable. continue to monitor - No report of bleeding. --Non-small cell lung cancer of the RUL- - metastasis to the pancreas, left adrenal gland, left abdominal wall site- - s/p radiation therapy to the pancreatic mass. - s/p chemo with carboplatin + taxol x 4 cycles. Added keytruda with cycle 3. 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 - followed by oncology at [facility]. Chronic conditions anemia- secondary to chemo. 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 planned for during hospitalization however due to pulmonary status GI Recommend outpatient ERCP in one month. tobacco use disorder- NRT Hypokalemia- 20 MeQ K+ daily. Will reduce to 10 Atrial fibrillation:8/5started low-dose auzhbbiup44.5mg twice a day which was continued at discharge. No anticoagulation due to thrombocytopenia. Chronic diastolic CHF- on lasix 20mg with potassium supplement. dilatation of the aorta- noted on ECHO. measuring 41.0 mm Nausea- compazine PRN Hx of Constipation (however diarrhea today) miralax daily. Senna PRN. insomnia- remeron FEN: mechanical soft diet. (Dentures were lost during hospitalization in [place]. Patient reports difficulty with chewing as a result. Dietary to work with patient with meal selection. CODE STATUS: DNR/DNI POLST form reviewed with patient and signed by patient with presents at bedside by admitting provider during acute admission Medication changes/adjustments made during acute admission --DC'd cephalosporin --Added vancomycin --Added Augmentin --Added Flomax Disposition: --Cont swing bed for occupational and physical therapy --Repeat Trial without catheter (TWOC) today, parameters. If no void by 1800 today, bladder scan, call Aamir with results likely will straght cath x1.
[2021-04-03] MEDS: Mirtazapine 15 MG Tab PO SCH (20:27)
[2021-04-04 08:19] LABS: ANION GAP 4.5 mmol/L (5-15); CHLORIDE,CL 98 mmol/L (98-107); SODIUM,NA 133 mmol/L (136-145)
[2021-04-04] MEDS: Folic Acid 1 MG Tab PO SCH (08:38)
[2021-04-04] MEDS: Magnesium Oxide 500 MG Tab PO SCH ×2 (08:38→20:06)
[2021-04-04] MEDS: Potassium Chloride 10 MEQ Tab.ER PO SCH (08:38)
[2021-04-04] MEDS: Vancomycin 125 MG Cap PO SCH ×4 (08:39→20:06)
[2021-04-04] MEDS: guaiFENesin 600 MG Tab.ER PO SCH ×2 (08:39→20:05)
[2021-04-04] MEDS: Metoprolol Tartrate 25 MG Tab PO SCH ×2 (08:39→20:11)
[2021-04-04] MEDS: Ascorbic Acid 500 MG Tab PO SCH (08:39)
[2021-04-04] MEDS: Furosemide 20 MG Tab PO SCH (08:39)
[2021-04-04] MEDS: Cholecalciferol (Vitamin D3) 25 MCG Tab PO SCH (08:39)
[2021-04-04] MEDS: Tamsulosin 0.4 MG Cap.ER PO SCH (08:39)
[2021-04-04] MEDS: Nicotine 21 MG/24 Hr Patch TRDERM SCH (08:44)
[2021-04-04] MEDS: Fluticasone/Umeclidin/Vilanter 1 PUFF INH SCH (08:48)
[2021-04-04] MEDS ORDERED: Furosemide 40 MG/4 ML VIAL IVPUSH ONE (13:37)
[2021-04-04] MEDS ORDERED: Albuterol/Ipratropium 3.0-0.5 MG/3 ML Neb Soln NEB ONE (13:37)
[2021-04-04] MEDS: Mirtazapine 15 MG Tab PO SCH (20:07)
[2021-04-05] MEDS: Magnesium Oxide 500 MG Tab PO SCH ×2 (08:20→20:28)
[2021-04-05] MEDS: Metoprolol Tartrate 25 MG Tab PO SCH ×2 (08:21→20:28)
[2021-04-05] MEDS: Vancomycin 125 MG Cap PO SCH ×4 (08:21→20:28)
[2021-04-05] MEDS: Folic Acid 1 MG Tab PO SCH (08:21)
[2021-04-05] MEDS: Furosemide 20 MG Tab PO SCH (08:21)
[2021-04-05] MEDS: Tamsulosin 0.4 MG Cap.ER PO SCH (08:21)
[2021-04-05] MEDS: Cholecalciferol (Vitamin D3) 25 MCG Tab PO SCH (08:22)
[2021-04-05] MEDS: Ascorbic Acid 500 MG Tab PO SCH (08:22)
[2021-04-05] MEDS: Nicotine 21 MG/24 Hr Patch TRDERM SCH (08:22)
[2021-04-05] MEDS: guaiFENesin 600 MG Tab.ER PO SCH ×2 (08:22→20:28)
[2021-04-05] MEDS: Potassium Chloride 10 MEQ Tab.ER PO SCH (08:22)
[2021-04-05] MEDS: Fluticasone/Umeclidin/Vilanter 1 PUFF INH SCH (10:15)
[2021-04-05] MEDS: Mirtazapine 15 MG Tab PO SCH (20:28)
[2021-04-06] MEDS: Nicotine 21 MG/24 Hr Patch TRDERM SCH (08:39)
[2021-04-06] MEDS: Potassium Chloride 10 MEQ Tab.ER PO SCH (08:39)
[2021-04-06] MEDS: Fluticasone/Umeclidin/Vilanter 1 PUFF INH SCH (08:39)
[2021-04-06] MEDS: Magnesium Oxide 500 MG Tab PO SCH ×2 (08:40→20:47)
[2021-04-06] MEDS: Folic Acid 1 MG Tab PO SCH (08:41)
[2021-04-06] MEDS: guaiFENesin 600 MG Tab.ER PO SCH ×2 (08:41→20:47)
[2021-04-06] MEDS: Ascorbic Acid 500 MG Tab PO SCH (08:41)
[2021-04-06] MEDS: Cholecalciferol (Vitamin D3) 25 MCG Tab PO SCH (08:41)
[2021-04-06] MEDS: Tamsulosin 0.4 MG Cap.ER PO SCH (08:41)
[2021-04-06] MEDS: Furosemide 20 MG Tab PO SCH (08:43)
[2021-04-06] MEDS: Metoprolol Tartrate 25 MG Tab PO SCH ×2 (08:44→20:47)
--- NOTE | 2021-04-06 13:13 | PCM.PN ---
- General Info Date of Service: 04/06/21 - Patient Data Vitals - Most Recent: Last Vital Signs Temp 98.1 F 04/06/21 08:45 Pulse 91 04/06/21 08:45 Resp 24 H 04/06/21 08:45 BP 104/62 04/06/21 08:45 Pulse Ox 93 L 04/06/21 08:45 Weight - Most Recent: 170 lb 2 oz I&O - Last 24 Hours: Intake & Output 04/05/21 04/06/21 04/06/21 22:59 06:59 14:59 Intake Total 350 50 Output Total 200 Balance 150 50 Med Orders - Current: Current Medications Acetaminophen (Acetaminophen 325 Mg Tab) 650 mg PO Q4H PRN PRN Reason: Pain Last Admin: 03/31/21 01:20 Dose: 650 mg Documented by: Ascorbic Acid (Ascorbic Acid 500 Mg Tab) 1,000 mg PO DAILY [facility] Last Admin: 04/06/21 08:41 Dose: 1,000 mg Documented by: Bisacodyl (Bisacodyl 10 Mg Supp) 10 mg RECTAL DAILY PRN PRN Reason: Constipation Calamine/Phenol (Menthol/Zinc Oxide Ointment 113 Gm Tube) 0 gm TOP Q6H PRN PRN Reason: Other Cholecalciferol (Cholecalciferol (Vitamin D3) 25 Mcg Tab) 25 mcg PO DAILY [facility] Last Admin: 04/06/21 08:41 Dose: 25 mcg Documented by: Folic Acid (Folic Acid 1 Mg Tab) 1 mg PO DAILY [facility] Last Admin: 04/06/21 08:41 Dose: 1 mg Documented by: Furosemide (Furosemide 20 Mg Tab) 20 mg PO DAILY [facility] Last Admin: 04/06/21 08:43 Dose: 20 mg Documented by: Guaifenesin (Guaifenesin 600 Mg Tab.Er) 600 mg PO BID [facility] Last Admin: 04/06/21 08:41 Dose: 600 mg Documented by: Magnesium Oxide (Magnesium Oxide 500 Mg Tab) 250 mg PO BID [facility] Last Admin: 04/06/21 08:40 Dose: 250 mg Documented by: Metoprolol Tartrate (Metoprolol Tartrate 25 Mg Tab) 12.5 mg PO BID [facility] Last Admin: 04/06/21 08:44 Dose: 12.5 mg Documented by: Mirtazapine (Mirtazapine 15 Mg Tab) 7.5 mg PO BEDTIME [facility] Last Admin: 04/05/21 20:28 Dose: 7.5 mg Documented by: Nicotine (Nicotine 21 Mg/24 Hr Patch) 21 mg TRDERM DAILY [facility] Last Admin: 04/06/21 08:39 Dose: 21 mg Documented by: Fluticasone/Umeclidin/Vilanter 1 Puff 1 puff INH DAILY [facility] Last Admin: 04/06/21 08:39 Dose: 1 puff Documented by: Oxycodone/Acetaminophen (Acetaminophen/Oxycodone 325-5 Mg Tab) 1 tab PO Q6H PRN PRN Reason: Pain (moderate 4-6) Polyethylene Glycol (Polyethylene Glycol 3350 Powder 17 Gm Packet) 17 gm PO DAILY PRN PRN Reason: Constipation Potassium Chloride (Potassium Chloride 10 Meq Tab.Er) 20 meq PO DAILY [facility] Last Admin: 04/06/21 08:39 Dose: 20 meq Documented by: Prochlorperazine Maleate (Prochlorperazine 5 Mg Tab) 10 mg PO QID PRN PRN Reason: Nausea/Vomiting Senna/Docusate Sodium (Docusate Sodium/Sennosides 50-8.6 Mg Tab) 1 tab PO DAILY PRN PRN Reason: Constipation Sodium Chloride (Sodium Chloride 0.9% 10 Ml Syringe) 10 ml FLUSH Q8HR PRN PRN Reason: keep vein open Tamsulosin HCl (Tamsulosin 0.4 Mg Cap.Er) 0.4 mg PO PCBREAKFAST [facility] Last Admin: 04/06/21 08:41 Dose: 0.4 mg Documented by: Discontinued Medications Albuterol/Ipratropium (Albuterol/Ipratropium 3.0-0.5 Mg/3 Ml Neb Soln) 3 ml NEB ONETIME ONE Stop: 04/04/21 13:38 Last Admin: 04/04/21 13:58 Dose: 3 ml Documented by: Amoxicillin/Clavulanate Potassium (Amoxicillin/Clavulanate K 875-125 Mg Tab) 1 tab PO Q12H [facility] Stop: 03/31/21 22:00 Last Admin: 03/31/21 20:52 Dose: 1 tab Documented by: Atropine Sulfate (Atropine 0.1 Mg/Ml 10 Ml Syringe) 0 mg IVPUSH ASDIRECTED PRN PRN Reason: Heart. Epinephrine HCl (Epinephrine 1:10,000 1 Mg/10 Ml Syringe) 1 mg IVPUSH ASDIRECTED PRN PRN Reason: Heart. Furosemide (Furosemide 40 Mg/4 Ml Vial) 40 mg IVPUSH NOW ONE Stop: 04/04/21 13:38 Last Admin: 04/04/21 13:54 Dose: 40 mg Documented by: Lactated Ringer's (Ringers, Lactated) 1,000 mls @ 65 mls/hr IV ASDIRECTED KELY Lidocaine HCl (Lidocaine 2% 100 Mg/5 Ml Syringe) 0 mg IVPUSH ASDIRECTED PRN PRN Reason: Heart. Nitroglycerin (Nitroglycerin 0.4 Mg Tab.Sl) 0.4 mg SL ASDIRECTED PRN PRN Reason: Heart. Vancomycin HCl (Vancomycin 125 Mg Cap) 125 mg PO QID [facility] Stop: 04/05/21 23:59 Last Admin: 04/05/21 20:28 Dose: 125 mg Documented by: - Exam Urinary Catheter Total Time: 1Days 5Hours - Patient Data Result Diagrams: 04/06/21 14:05 04/06/21 14:05 Sepsis Event Note - Evaluation Sepsis Screening Result: Possible Sepsis Risk - Focused Exam Vital Signs: Vital Signs Temp Pulse Pulse Resp BP BP Pulse Ox 04/06/21 08:45 98.1 F 91 24 H 104/62 93 L 04/06/21 08:44 108 H 104/62 - Problem List Review Problem List Initiated/Reviewed/Updated: Yes - My Orders Last 24 Hours: My Active Orders 04/06/21 13:12 CXR [Chest 2V] [CR] Routine BMP [BASIC METABOLIC PANEL,BMP] [CHEM] Routine CBC WITH AUTO DIFF [HEME] Routine - Plan Plan:: History of present illness Mr Figueroa is a 75 year old male with a significant PMH of Metastatic non-small cell lung cancer on chemotherapy, pancreatic mass, COPD, thrombocytopenia, atrial fibrillation/flutter not on anticoagulation admitted to [facility] 03/22/21 initially swing bed for PT/OT services. Patient was hospitalized at [facility] 03/15/21 - 03/22/21 for septic shock secondary to perforated gallbladder, gram negative bacteremia with E. Coli on blood cultures. On admission to [facility] he was started on Zosyn, switched to Ceftriaxone 03/19. Discharged on oral Vantin 200 mg 2 times a day for 8 days (total 14 days) given for c-difficile infection. He underwent cholecystectomy with drainage tube placement on 03/16/21, limited drainage output per records. Patient was admitted swing bed for rehabilitative services however changed from swing bed status to inpatient on 03/23/21 for multiple acute concerns including worsening hypoxia, decreased urine output. During his acute care stay he developed considerable weakness and deconditioning therefore was placed into group home/bed status. (See acute care record for full hospitalization Course). Medication changes/adjustments made during acute admission --DC'd cephalosporin --Added vancomycin PO for c-diff --Added Augmentin --Added Flomax 04/06/21: Patient c/o increased SOB since yesterday (04/05), edema to BLE and crackles to L base on auscultation. Patient on 4L O2 NC. Labs repeated today, overall stable. CXR repeated with increase in L pleural effusion. Lasix 20mg IV x 1 dose given today. Primary group home problems # Weakness/deconditioning # Protein malnutrition, dietary consultation # C. difficile infection, improved. Course of oral vancomycin completed today (04/06/21) # COPD - Home oxygen 3 L continuously - currently on 4L - on Trelegy - Acute admission CXR showing infiltrate, atelectasis, and effusion of left lung base ? pneumonia. Repeated CXR today (04/06) with increased L pleural effusion from prior CXR 03/23/21 - Additional lasix 20mg IV given today. - CTA done with no evidence of PE. No pneumonia as questioned on x-ray. mild pleural reaction bilaterally. Aatelectasis Left lower lobe. # Acute on Chronic diastolic CHF - BNP not overly impressive 400s - ECHO 01/17/21 normal LV systolic function. EF 65%. Grade 1 diastolic dysfunction. no significant valvular abnormalities. - Continue lasix 20mg PO daily # Urinary retention - no urinary output reported this am. Bladder scan indicated 410ml. Straight cath x 1 today with 380ml return. - Repeat bladder scan at 1800 today (04/07) if unable to void, if > 300ml will replace weiner - Continue flomax 0.4mg PO daily # Perforated gallbladder with cholecystectomy on 03/16/21 - percutaneous cholecystostomy drain in place - minimal drainage noted - IR recommendation to keep drain usually for 6 weeks to have time to perform a tract before removal Chronic, stable conditions: # Atrial fibrillation - continue low dose metoprolol 12.5mg PO BID; no anticoagulation given chemo induced thrombocytopenia # HFpEF - EF 65%, Grade 1 diastolic dysfunction per Echo 01/17/21 # Dilation of the aorta # Non-small cell lung cancer of the RUL with metastasis to the pancreas, left adrenal gland, left abdominal wall site # 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 Hgb 7.6 upon recheck today (04/06) # Thrombocytopenia - chronic related to chemo; stable platelets 210 on repeat labs 04/06 # Hypokalemia - continue K supplementation; stable 4.2 (04/06) # Nausea- compazine PRN # Hx of Constipation # Insomnia - continue remeron # Tobacco use disorder Hospitalization details: # FEN: IV SL, electrolytes stable, mechanical soft diet (dentures lost during hospitalization in [place]) # PPX: None # Code status: DNR/DNI - POLST updated during acute hospital stay # Emergency contact: , updated during rounds today # Disposition: Continue swing bed for PT, OT. Planning for possible discharge. Recommend outpatient ERCP in one month for stent [facility].
[2021-04-06 14:27] LABS: ANION GAP 7.6 mmol/L (5-15); CHLORIDE,CL 95 mmol/L (98-107); SODIUM,NA 132 mmol/L (136-145)
--- NOTE | 2021-04-06 14:34 | CR ---
[id number] RAD/RAD Chest PA or AP 1V EXAM: RAD Chest PA or AP 1V INDICATION: SHORTNESS OF BREATH, CRACKLES ON AUSCULTATION. COMPARISON: CT from March 23, 2021. DISCUSSION/IMPRESSION: Left-sided pleural effusion is slightly increased compared to March 23, 2021. There is also slightly increased parenchymal opacity on the left. No significant change on the right. Mark Matamoros MD 04/06/21 1561 Thank you for allowing us to participate in the care of your patient.
[2021-04-06] MEDS ORDERED: Furosemide 40 MG/4 ML VIAL IVPUSH ONE (15:15)
[2021-04-06] MEDS: Mirtazapine 15 MG Tab PO SCH (20:47)
[2021-04-07 07:51] LABS: ANION GAP 6.1 mmol/L (5-15); CHLORIDE,CL 96 mmol/L (98-107); SODIUM,NA 132 mmol/L (136-145)
[2021-04-07] MEDS: Metoprolol Tartrate 25 MG Tab PO SCH ×2 (08:23→21:07)
[2021-04-07] MEDS: Nicotine 21 MG/24 Hr Patch TRDERM SCH (08:23)
[2021-04-07] MEDS: Cholecalciferol (Vitamin D3) 25 MCG Tab PO SCH (08:23)
[2021-04-07] MEDS: Ascorbic Acid 500 MG Tab PO SCH (08:23)
[2021-04-07] MEDS: Folic Acid 1 MG Tab PO SCH (08:24)
[2021-04-07] MEDS: guaiFENesin 600 MG Tab.ER PO SCH ×2 (08:24→21:06)
[2021-04-07] MEDS: Potassium Chloride 10 MEQ Tab.ER PO SCH (08:25)
[2021-04-07] MEDS: Tamsulosin 0.4 MG Cap.ER PO SCH (08:25)
[2021-04-07] MEDS: Magnesium Oxide 500 MG Tab PO SCH ×2 (08:25→21:06)
[2021-04-07] MEDS: Furosemide 20 MG Tab PO SCH (08:25)
[2021-04-07] MEDS: Fluticasone/Umeclidin/Vilanter 1 PUFF INH SCH (08:30)
--- NOTE | 2021-04-07 10:23 | PCM.SN.2 ---
- Free Text/Narrative Note: CBC 11.03 today, BNP 192. Strep pneumoniae urine pending, sputum culture pending. Question possible pneumonia versus CHF versus sequelae from small cell lung CA as etiology of left pleural effusion with increased size per CXR yesterday as well as parenchymal opacity on the L. Will consider antibiotics based on urine/sputum cultures.
[2021-04-07] MEDS: Mirtazapine 15 MG Tab PO SCH (21:06)
[2021-04-08] MEDS: Nicotine 21 MG/24 Hr Patch TRDERM SCH (08:49)
[2021-04-08] MEDS: Metoprolol Tartrate 25 MG Tab PO SCH ×2 (08:49→20:38)
[2021-04-08] MEDS: Potassium Chloride 10 MEQ Tab.ER PO SCH (08:50)
[2021-04-08] MEDS: Folic Acid 1 MG Tab PO SCH (08:51)
[2021-04-08] MEDS: Furosemide 20 MG Tab PO SCH (08:51)
[2021-04-08] MEDS: Ascorbic Acid 500 MG Tab PO SCH (08:51)
[2021-04-08] MEDS: Magnesium Oxide 500 MG Tab PO SCH ×2 (08:52→20:37)
[2021-04-08] MEDS: guaiFENesin 600 MG Tab.ER PO SCH ×2 (08:52→20:37)
[2021-04-08] MEDS: Cholecalciferol (Vitamin D3) 25 MCG Tab PO SCH (08:52)
[2021-04-08] MEDS: Tamsulosin 0.4 MG Cap.ER PO SCH (08:52)
[2021-04-08] MEDS: Fluticasone/Umeclidin/Vilanter 1 PUFF INH SCH (08:54)
[2021-04-08] MEDS ORDERED: Sodium Chloride 0.9% 10 ML Syringe FLUSH SCH (09:00)
[2021-04-08] MEDS: Mirtazapine 15 MG Tab PO SCH (20:37)
[2021-04-09] MEDS ORDERED: Nicotine 14 MG/24 Hr Patch TRDERM SCH (09:00)
[2021-04-09] MEDS ORDERED: Sodium Chloride 0.9% 10 ML Syringe FLUSH SCH (09:00)
[2021-04-09] MEDS: Tamsulosin 0.4 MG Cap.ER PO SCH (09:05)
[2021-04-09] MEDS: Folic Acid 1 MG Tab PO SCH (09:05)
[2021-04-09] MEDS: Ascorbic Acid 500 MG Tab PO SCH (09:05)
[2021-04-09] MEDS: guaiFENesin 600 MG Tab.ER PO SCH (09:05)
[2021-04-09] MEDS: Cholecalciferol (Vitamin D3) 25 MCG Tab PO SCH (09:06)
[2021-04-09] MEDS: Potassium Chloride 10 MEQ Tab.ER PO SCH (09:06)
[2021-04-09] MEDS: Magnesium Oxide 500 MG Tab PO SCH (09:06)
[2021-04-09] MEDS: Furosemide 20 MG Tab PO SCH (09:06)
[2021-04-09] MEDS ORDERED: Acetaminophen/oxyCODONE 325-5 MG Tab PO PRN (09:07)
[2021-04-09] MEDS ORDERED: Bisacodyl 10 MG Supp RECTAL PRN (09:07)
[2021-04-09] MEDS ORDERED: Polyethylene Glycol 3350 Powder 17 GM Packet PO PRN (09:07)
[2021-04-09] MEDS ORDERED: Acetaminophen 325 MG Tab PO PRN (09:07)
[2021-04-09] MEDS: Fluticasone/Umeclidin/Vilanter 1 PUFF INH SCH (09:10)
[2021-04-09 09:15] VITALS: BP 118/90
[2021-04-09] MEDS: Metoprolol Tartrate 25 MG Tab PO SCH (09:15)
[2021-04-09 09:27] VITALS: PULSE 88
--- NOTE | 2021-04-09 14:29 | PN ---
04/09/2021 PATIENT NAME: BARBY ASHRAF This is a 75-year-old patient with a significant past medical history of metastatic mpt-[id number]-hnol carcinoma on chemotherapy, pancreatic mass, COPD, thrombocytopenia, atrial fibrillation/ flutter, not on anticoagulation, admitted to the hospital on 03/22/2021. He was admitted to [facility] for PT, OT services. The patient between 03/15/2021 to 03/22/2021 was admitted for septic shock and perforated gallbladder, gram-negative bacteremia with E. coli. He was started on Zosyn, switched to ceftriaxone, and he was discharged on Vantin. He is now seen today for followup. He seems to be doing fairly well except that he complains of dyspnea. He does have lung metastasis and kbs-uuygu-ejhy carcinoma of the right lung. He has developed a new infiltrate in the left lung base. It was debated whether this was infection, exacerbation of congestive heart failure, or other etiology. At this point, his pneumoniae antigen and urine antigen was negative. Sputum culture is pending. He is being discharged to the [facility]. We advise for hospice to be strongly considered for this patient. Other problems include weakness and deconditioning. This problem will continue because of his deteriorating status due to his malignancy. Protein malnutrition again as above. Clostridium difficile infection improved. Chronic diastolic CHF again remains a problem. We will continue Lasix 20 mg daily. Urine retention. If unable to void, the patient will have to be catheterized. His vital signs are as follows, his weight is 173 pounds, blood pressure is 106/50, pulse 68, oxygen saturation 95%. Currently, he has been receiving acetaminophen, ascorbic acid, bisacodyl, cholecalciferol, Lasix 20 daily, guaifenesin on a p.r.n. basis, magnesium oxide 250 b.i.d., metoprolol 12.5 b.i.d., mirtazapine 7.5 at bedtime, oxycodone/acetaminophen 5/325 one q.6 h. p.r.n., polyethylene glycol 17 g daily p.r.n., potassium chloride 20 mEq daily, and tamsulosin 0.4 mg at bedtime. MEDICATIONS: The patient will continue on the following medications: 1. Tylenol 650 q.4 h. p.r.n. 2. Bisacodyl 10 mg rectally p.r.n. 3. Calamine lotion p.r.n. 4. Fluticasone/Umeclidinium/Vilanterol 1 puff daily scheduled. 5. Folic acid 1 mg daily. 6. Lasix 20 mg daily. 7. Mucinex 600 b.i.d. 8. Magnesium 250 once a day. 9. Metoprolol 12.5 once a day. 10.Mirtazapine 7.5 at bedtime. 11.Nicotine patch 40 mg daily. 12.Oxycodone/acetaminophen 5/325 one q.6 h. p.r.n. 13.Polyethylene glycol 17 g p.r.n. 14.Reglan 10 mg q.i.d. p.r.n. 15.Senna/docusate p.r.n. 16.Tamsulosin 0.4 mg daily. FOLLOWUP: /[id number]/MODL
--- NOTE | 2021-04-09 14:32 | DISCH ---
This is an elderly 75-year-old patient with a known history of [id number]-[id number] carcinoma of the right lung with possible metastasis to his pancreas. The patient is gradually declining. His other past history includes COPD, thrombocytopenia, atrial fibrillation/flutter, recently had a perforated gallbladder, and was treated for gram-negative sepsis with E. coli. Also treated for Clostridium difficile toxin infection which has gotten better. He underwent cholecystotomy with drainage tube placement. His other problems include weakness. His general status is declining. He has developed a new infiltrate in his left lung base. Other problems include protein-calorie malnutrition which is bound to get worse. He is on oxygen therapy. He has significant valvular abnormalities which will remain. He also has a history of afhyb-ny-prsunvv diastolic failure. He also has problems with urinary retention. This problem [facility] have to [facility] at the [facility], it may require bladder ultrasounds and catheterization. /[id number]/MODL
[2021-04-09] MEDS ORDERED: Mirtazapine 15 MG Tab PO SCH (21:00)
[2021-04-09] MEDS ORDERED: guaiFENesin 600 MG Tab.ER PO SCH (21:00)
[2021-04-10] MEDS ORDERED: Tamsulosin 0.4 MG Cap.ER PO SCH (09:00)
[2021-04-10] MEDS ORDERED: UMECLIDIN INH SCH (09:00)
[2021-04-10] MEDS ORDERED: Folic Acid 1 MG Tab PO SCH (09:00)
[2021-04-10] MEDS ORDERED: FLUTICASONE INH SCH (09:00)
[2021-04-10] MEDS ORDERED: Metoprolol Tartrate 25 MG Tab PO SCH (09:00)
[2021-04-10] MEDS ORDERED: VILANTER INH SCH (09:00)
[2021-04-10] MEDS ORDERED: Furosemide 20 MG Tab PO SCH (09:00)
[2021-04-10] MEDS ORDERED: Nicotine 21 MG/24 Hr Patch TOP SCH (09:00)
[2021-04-10] MEDS ORDERED: [UNRECOGNIZED DRUG - OTHER] INH SCH (09:00)
[2021-04-10] MEDS ORDERED: Non-Formulary Medication 1 Each (Magnesium Oxide [Magnesium Oxide] 250 MG Tablet) PO SCH (09:00)
[2021-04-10] MEDS ORDERED: Cholecalciferol (Vitamin D3) 25 MCG Tab PO SCH (09:00)
== END 2021-04-09 11:50 | DRG 948 ==
LOC: KA.MS 10:54
PROVIDERS: ADMIT Nurse Practitioner Family; ATTEND Nurse Practitioner Family
DX: R53.1 Weakness (principal); J96.11 Chronic respiratory failure with hypoxia; I50.32 Chronic diastolic (congestive) heart failure; D84.9 Immunodeficiency, unspecified; E46 Unspecified protein-calorie malnutrition; J90 Pleural effusion, not elsewhere classified; C34.11 Malignant neoplasm of upper lobe, right bronchus or lung; C78.89 Secondary malignant neoplasm of other digestive organs; C79.72 Secondary malignant neoplasm of left adrenal gland; C79.2 Secondary malignant neoplasm of skin; J44.9 Chronic obstructive pulmonary disease, unspecified; D64.9 Anemia, unspecified; E87.6 Hypokalemia; I48.91 Unspecified atrial fibrillation; K59.00 Constipation, unspecified; G47.00 Insomnia, unspecified; Z66 Do not resuscitate; D69.6 Thrombocytopenia, unspecified; H54.7 Unspecified visual loss; I11.0 Hypertensive heart disease with heart failure; Z85.118 Personal history of other malignant neoplasm of bronchus and lung; M19.90 Unspecified osteoarthritis, unspecified site; E55.9 Vitamin D deficiency, unspecified; D50.9 Iron deficiency anemia, unspecified; Z86.16 Personal history of COVID-19; Z90.49 Acquired absence of other specified parts of digestive tract; Z79.899 Other long term (current) drug therapy; R33.9 Retention of urine, unspecified; B96.89 Other specified bacterial agents as the cause of diseases classified elsewhere; T45.1X5A Adverse effect of antineoplastic and immunosuppressive drugs, initial encounter; I77.819 Aortic ectasia, unspecified site
CPT/HCPCS: 36415; 51702; 51798; 71045; 80048; 83880; 85025; 87070; 87205; 87899; 94640; 97110-GO; 97110-GP; 97530-GP; A9270-GY; J1940; J7620-GY

== ENCOUNTER 2021-04-25 11:56 | Emergency (ER) | payer MEDICARE, OTHER ==
--- NOTE | 2021-04-25 12:45 | EDM.PDOC ---
ED HPI GENERAL MEDICAL PROBLEM - General Chief Complaint: Abdominal Pain Stated Complaint: DRAIN ISSUE Time Seen by Provider: 04/25/21 12:34 Source of Information: Reports: Patient History Limitations: Reports: No Limitations - History of Present Illness INITIAL COMMENTS - FREE TEXT/NARRATIVE: Patient presents from [place] with report of more drainage around abdominal drain but less coming out of the tube. Patient denies any fever or increasing discomfort. The drain was placed with the surgery to remove his ruptured gallbladder on 03/16/21. He says he is eating soft foods okay but appetite has been kind of low. No diarrhea or constipation but for the last two weeks he sometimes feels like he isn't completely emptying and has urge to go again 30 minutes later, sometimes successfully and sometimes not. He has a chronic cough but says he isn't producing as much sputum as usual lately. He has COPD and smoked 2-3 ppd for over 50 years, starting in grade school. He denies any lung surgeries. Prior to the cholecystectomy, at home, he used oxygen at night. In the hospital, and now in the [place], he has been on 3 liters all the time. - Related Data Allergies Allergy/AdvReac Type Severity Reaction Status Date / Time No Known Drug Allergies Allergy NKDA Verified 04/25/21 12:29 Home Meds: Home Meds Bisacodyl [Laxative Suppository] 10 mg RC DAILY PRN 03/22/21 [History] Folic Acid 1 mg PO DAILY 03/22/21 [History] Furosemide [Lasix] 20 mg PO DAILY 03/22/21 [History] Mirtazapine [Remeron] 7.5 mg PO BEDTIME 03/22/21 [History] Nicotine [Nicotine Patch] 21 mg TD DAILY 03/22/21 [History] polyethylene glycoL 3350 [MiraLAX] 17 gm PO DAILY PRN 03/22/21 [History] Docusate Sodium/Sennosides [Senna Plus] 1 tab PO DAILY PRN 04/08/21 [History] Tamsulosin [Flomax] 0.4 mg PO DAILY 04/08/21 [History] guaiFENesin [Mucinex] 600 mg PO BID 04/08/21 [History] oxyCODONE HCl/Acetaminophen [Oxycodone-Acetaminophen 5-325] 1 tab PO Q6H PRN 04/08/21 [History] Magnesium Oxide 250 mg PO DAILY 30 Days #30 tablet 04/09/21 [Rx] Metoprolol Tartrate 12.5 mg PO DAILY 30 Days #30 tablet 04/09/21 [Rx] Fluticasone/Umeclidin/Vilanter [Trelegy Ellipta 100-62.5-25 MCG] 1 puff INH DAILY 04/25/21 [History] Melatonin 3 mg PO BEDTIME 04/25/21 [History] Nystatin [Nystatin Crm] 15 gm TOP BID 04/25/21 [History] Past Medical History HEENT History: Reports: Impaired Vision, Sinusitis Cardiovascular History: Reports: Afib, Hypertension, SOB on Exertion Respiratory History: Reports: Bronchitis, Recurrent, COPD, SOB, Other (See Below) Other Respiratory History: Lung CA Gastrointestinal History: Reports: Other (See Below) Other Gastrointestinal History: peforated gallbladder s/p cholescystectomy February 2021 w/ abscess drain (IJ drain) Genitourinary History: Reports: Other (See Below) Other Genitourinary History: Pt denies history, however, catheter insertion indicates enlarged prostate. Musculoskeletal History: Reports: Arthritis Endocrine/Metabolic History: Reports: Vitamin D Deficiency Hematologic History: Reports: Anemia, Folic Acid, Iron Deficiency Immunologic History: Reports: Immunosuppression Other Immunologic History: history of chemo and radiation in 2001; current chemo for metastatic lung CA Oncologic (Cancer) History: Reports: Colon, Lung, Metastatic Other Oncologic History: metastatic lung cancer - Infectious Disease History Infectious Disease History: Reports: Novel Coronavirus - Past Surgical History HEENT Surgical History: Reports: None Cardiovascular Surgical History: Reports: None Respiratory Surgical History: Reports: None GI Surgical History: Reports: Cholecystectomy, Colonoscopy, Other (See Below) Other GI Surgeries/Procedures: bowel resection Male Surgical History: Reports: None Musculoskeletal Surgical History: Reports: None Other Oncologic Surgeries/Procedures: colon resection in 2001 Social & Family History - Family History Family Medical History: No Pertinent Family History - Caffeine Use Caffeine Use: Reports: None ED ROS GENERAL - Review of Systems Review Of Systems: See Below Constitutional: Denies: Fever, Chills, Malaise, Weakness HEENT: Denies: Ear Pain, Throat Pain, Vision Change Respiratory: Reports: Shortness of Breath (always), Cough Cardiovascular: Denies: Chest Pain, Lightheadedness, Syncope GI/Abdominal: Denies: Abdominal Pain, Constipation, Diarrhea, Vomiting Musculoskeletal: Denies: Neck Pain, Shoulder Pain, Arm Pain Skin: Denies: Cyanosis, Jaundice, Mottled, Diaphoresis Neurological: Denies: Confusion, Dizziness, Headache, Seizure, Syncope, Trouble Speaking Psychiatric: Denies: Agitation, Anxiety, Confusion Hematologic/Lymphatic: Denies: Anemia ED EXAM, GI/ABD - Physical Exam Exam: See Below Exam Limited By: No Limitations General Appearance: Alert, WD/WN, No Apparent Distress Eyes: Bilateral: Normal Appearance, EOMI Ears: Normal External Exam, Hearing Grossly Normal Nose: Normal Inspection, No Blood Throat/Mouth: Normal Inspection, Normal Lips, Normal Voice, No Airway Compromise Head: Atraumatic, Normocephalic Neck: Normal Inspection, Full Range of Motion Respiratory/Chest: Decreased Breath Sounds (significantly throughout left lung), Other (loose cough evident). No: Crackles, Rhonchi, Wheezing, Stridor Cardiovascular: Normal Peripheral Pulses, Regular Rate, Rhythm, No Edema, No Murmur GI/Abdominal Exam: Normal Bowel Sounds, Soft, Non-Tender, No Organomegaly, No Distention, Other (drain in RLQ has 0.5-1 cm of localized erythema but otherwise looks okay) Back Exam: Normal Inspection, Full Range of Motion Extremities: Normal Inspection, Normal Range of Motion Neurological: Alert, Oriented, Normal Cognition, No Motor/Sensory Deficits Psychiatric: Normal Affect, Normal Mood Skin Exam: Warm, Dry, Intact, Normal Color, No Rash Course - Vital Signs Last Recorded V/S: Last Vital Signs Temp 98.0 F 04/25/21 13:25 Pulse 80 04/25/21 13:25 Resp 16 04/25/21 13:25 BP 80/57 L 04/25/21 13:25 Pulse Ox 93 L 04/25/21 13:25 - Orders/Labs/Meds Labs: Laboratory Tests 04/25/21 04/25/21 04/25/21 Range/Units 12:40 12:40 12:40 WBC 9.84 (5.00-10.00) 10^3/uL RBC 2.63 L (4.50-6.00) 10^6/uL Hgb 8.5 L (13.0-17.0) g/dL Hct 28.3 L (40.0-52.0) % MCV 107.6 H (82.0-92.0) fL MCH 32.3 H (27.0-31.0) pg MCHC 30.0 L (32.0-36.0) g/dL RDW 17.9 H (11.5-14.5) % Plt Count 236 (150-400) 10^3/uL MPV 10.1 (7.4-10.4) fL Immature Gran % (Auto) 0.3 (0.0-5.0) % Neut % (Auto) 75.8 H (50.0-70.0) % Lymph % (Auto) 12.7 L (20.0-40.0) % [place] % (Auto) 8.8 H (2.0-8.0) % Eos % (Auto) 1.8 (1.0-3.0) % Baso % (Auto) 0.6 (0.0-1.0) % Neut # (Auto) 7.45 H (2.50-7.00) 10^3/uL Lymph # (Auto) 1.25 (1.00-4.00) 10^3/uL [place] # (Auto) 0.87 H (0.10-0.80) 10^3/uL Eos # (Auto) 0.18 (0.10-0.30) 10^3/uL Baso # (Auto) 0.06 (0.00-0.10) 10^3/uL Immature Gran # (Auto) 0.03 (0.00-0.50) 10^3/uL Sodium 135 L (136-145) mmol/L Potassium 3.7 (3.5-5.1) mmol/L Chloride 98 (98-107) mmol/L Carbon Dioxide 32.1 H (21.0-32.0) mmol/L Anion Gap 8.6 (5-15) mmol/L BUN 7 (7-18) mg/dL Creatinine 0.49 L (0.51-1.17) mg/dL Est Cr Clr Drug Dosing 112.82 mL/min Estimated GFR (MDRD) > 60 mL/min Glucose 103 (70-140) mg/dL Lactic Acid 1.6 (0.4-2.0) mmol/L Calcium 7.8 L (8.7-10.3) mg/dL Total Bilirubin 0.3 (0.2-1.0) mg/dL AST 38 H (15-37) U/L ALT 25 (14-63) U/L Alkaline Phosphatase 165 H (46-116) U/L C-Reactive Protein 5.1 H (0.0-0.9) mg/dL Total Protein 6.0 L (6.4-8.2) g/dL Albumin 1.44 L (3.40-5.00) g/dL - Re-Assessments/Exams Free Text/Narrative Re-Assessment/Exam: 04/25/21 13:25 CXR shows a moderate left pleural effusion but smaller than comparison 3 weeks ago. Mass unchanged in right upper lobe that patient is aware of. 04/25/21 13:30 CBC is 9.84, ANC is 7.45, both the lowest he has been in multiple tests the last month. CRP is 5.1 which is the lowest he has been in recent years. Alk Phos and AST are slightly elevated which is new. 04/25/21 14:03 Discussed case with Aamir Winchester NP who will discuss tube removal pt's PCP and possibly the surgeon who placed it. He will contact [facility] with the plan for removal. I discussed findings and plan with patient. He is stable at discharge. Departure - Departure Time of Disposition: 13:55 Disposition: DC/Tfer to [facility] 03 Condition: Good Clinical Impression: S/P cholecystectomy, Cellulitis of drainage site, post-operative - Discharge Information Referrals: Tiffany Elkins NP [Primary Care Provider] - Forms: ED Department Discharge Additional Instructions: Continue current regimen for drain tube care. Change dressing daily. Aamir Winchester NP will be contacting you with plan for removal of the tube either tomorrow or next week. If worsening, recheck with PCP or ER. Sepsis Event Note (ED) - Evaluation Sepsis Screening Result: Possible Sepsis Risk - Focused Exam Vital Signs: Vital Signs Temp Pulse Resp BP Pulse Ox 04/25/21 13:25 98.0 F 80 16 80/57 L 93 L 04/25/21 13:03 88 16 86/66 L 94 L 04/25/21 12:30 90 16 80/59 L 93 L 04/25/21 12:24 97.7 F 92 18 97/67 95
--- NOTE | 2021-04-25 13:08 | CR ---
[id number] RAD/RAD Chest PA or AP 1V EXAM: FRONTAL CHEST INDICATION: DECREASED LUNG SOUNDS ON LEFT. CHRONIC COPD. COMPARISON: April 06, 2021. DISCUSSION: A moderate left pleural effusion has decreased. Small right pleural effusion, likely unchanged. Heart size is obscured. There is associated volume loss in the left lung base. A right upper lobe mass measuring about 5 cm in diameter is similar to the prior study. IMPRESSION: 1. A moderate left pleural effusion has decreased in size. Alhaji Brothers MD 04/25/21 [id number] Thank you for allowing us to participate in the care of your patient.
[2021-04-25 13:09] LABS: ANION GAP 8.6 mmol/L (5-15); CHLORIDE,CL 98 mmol/L (98-107); SODIUM,NA 135 mmol/L (136-145)
[2021-04-25 13:25] VITALS: BP 80/57; PULSE 80
== END 2021-04-25 14:30 ==
LOC: KA.ED 11:56
DX: T81.40XA Infection following a procedure, unspecified, initial encounter (principal); L03.311 Cellulitis of abdominal wall; I48.91 Unspecified atrial fibrillation; I10 Essential (primary) hypertension; J44.9 Chronic obstructive pulmonary disease, unspecified; Z86.16 Personal history of COVID-19; Z90.49 Acquired absence of other specified parts of digestive tract
CPT/HCPCS: 36415; 71045; 80053; 83605; 85025; 86140; 99283-25; 99284

== ENCOUNTER 2021-06-28 00:58 | Emergency (ER) | payer MEDICARE, OTHER ==
[2021-06-28] MEDS ORDERED: Sodium Chloride 0.9% 10 ML Syringe FLUSH PRN (01:06)
--- NOTE | 2021-06-28 01:09 | EDM.PDOC ---
ED HPI GENERAL MEDICAL PROBLEM - General Chief Complaint: Neuro Symptoms/Deficits Stated Complaint: cva Time Seen by Provider: 06/28/21 01:09 Source of Information: Reports: EMS, Group Home Records History Limitations: Reports: Altered Mental Status - History of Present Illness INITIAL COMMENTS - FREE TEXT/NARRATIVE: Yosi, 75-year-old male, presents by ambulance emergency department after he felt a different sensation in his left arm and notified nursing staff. He was transported directly here but was noted to have some left facial twitching as well as facial asymmetry left upper extremity and left lower extremity weakness. Facial twitching and the majority of his symptoms had resolved other than slight lid lag upon arrival. Ambulance noted no further deficits with left-sided weakness mostly predominant to the left upper extremity. He was able to speak and converse with complete understanding and apparent function other than the musculoskeletal deficits. 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 On arrival he was stroke activation with lab draw and stat CT being obtained. Onset: Today Duration: Minutes: Location: Reports: Head Severity: Severe Associated Symptoms: Reports: Weakness - Related Data Allergies Allergy/AdvReac Type Severity Reaction Status Date / Time No Known Drug Allergies Allergy NKDA Verified 06/28/21 01:14 Home Meds: Home Meds Bisacodyl [Laxative Suppository] 10 mg RC DAILY PRN 03/22/21 [History] Folic Acid 1 mg PO DAILY 03/22/21 [History] Furosemide [Lasix] 20 mg PO DAILY 03/22/21 [History] Mirtazapine [Remeron] 7.5 mg PO BEDTIME 03/22/21 [History] Nicotine [Nicotine Patch] 21 mg TD DAILY 03/22/21 [History] polyethylene glycoL 3350 [MiraLAX] 17 gm PO DAILY PRN 03/22/21 [History] Docusate Sodium/Sennosides [Senna Plus] 1 tab PO DAILY PRN 04/08/21 [History] Tamsulosin [Flomax] 0.4 mg PO DAILY 04/08/21 [History] guaiFENesin [Mucinex] 600 mg PO BID 04/08/21 [History] oxyCODONE HCl/Acetaminophen [Oxycodone-Acetaminophen 5-325] 1 tab PO Q6H PRN 04/08/21 [History] Magnesium Oxide 250 mg PO DAILY 30 Days #30 tablet 04/09/21 [Rx] Metoprolol Tartrate 12.5 mg PO DAILY 30 Days #30 tablet 04/09/21 [Rx] Fluticasone/Umeclidin/Vilanter [Trelegy Ellipta 100-62.5-25 MCG] 1 puff INH DAILY 04/25/21 [History] Melatonin 3 mg PO BEDTIME 04/25/21 [History] Nystatin [Nystatin Crm] 15 gm TOP BID 04/25/21 [History] Levofloxacin [Levaquin] 500 mg PO DAILY 6 Days #6 tablet 06/28/21 [Rx] levETIRAcetam [Keppra] 1,000 mg PO BID 30 Days #60 tablet 06/28/21 [Rx] Past Medical History HEENT History: Reports: Impaired Vision, Sinusitis Other HEENT History: DYSPHAGIA Cardiovascular History: Reports: Afib, Heart Failure, Hypertension, SOB on Exertion Other Cardiovascular History: CHRONIC DIASTOLIC HEART FAILURE Respiratory History: Reports: Bronchitis, Recurrent, COPD, SOB, Other (See Below) Other Respiratory History: Lung CA - RIGHT BRONCHUS Gastrointestinal History: Reports: Chronic Constipation, Other (See Below) Other Gastrointestinal History: peforated gallbladder s/p cholescystectomy February 2021 w/ abscess drain (IJ drain) Genitourinary History: Reports: BPH Other Genitourinary History: Pt denies history, however, catheter insertion indicates enlarged prostate. Musculoskeletal History: Reports: Arthritis Psychiatric History: Reports: None Endocrine/Metabolic History: Reports: Vitamin D Deficiency Hematologic History: Reports: Anemia, Folic Acid, Iron Deficiency Immunologic History: Reports: Immunosuppression Other Immunologic History: history of chemo and radiation in 2001; current chemo for metastatic lung CA Oncologic (Cancer) History: Reports: Colon, Lung, Metastatic, Pancreatic Other Oncologic History: metastatic non small cell lung cancer. METS TO ADRENAL GLAND. METS TO OTHER DIGESTIVE ORGANS Other Dermatologic History: ERYTHEMA INTERTRIGO OF GROIN - Infectious Disease History Infectious Disease History: Reports: Novel Coronavirus - Past Surgical History HEENT Surgical History: Reports: None Cardiovascular Surgical History: Reports: None Respiratory Surgical History: Reports: None GI Surgical History: Reports: Cholecystectomy, Colonoscopy, Other (See Below) Other GI Surgeries/Procedures: bowel resection Male Surgical History: Reports: None Musculoskeletal Surgical History: Reports: None Other Oncologic Surgeries/Procedures: colon resection in 2001 - Past Imaging History Past Imaging History: Reports: CAT Scan, MRI, Xray Social & Family History - Family History Family Medical History: No Pertinent Family History - Caffeine Use Caffeine Use: Reports: Soda Other Caffeine Use: mountain Dew ED ROS GENERAL - Review of Systems Review Of Systems: See Below Constitutional: Reports: No Symptoms HEENT: Reports: No Symptoms Respiratory: Reports: No Symptoms, Cough (Occasional.) Cardiovascular: Reports: No Symptoms Endocrine: Reports: No Symptoms GI/Abdominal: Reports: No Symptoms : Reports: No Symptoms Musculoskeletal: Reports: Other ( Left-sided weakness) Skin: Reports: No Symptoms Neurological: Reports: Paresthesia, Pre-Existing Deficit, Trouble Speaking, Difficulty Walking, Weakness, Change in Speech, Gait Disturbance Psychiatric: Reports: No Symptoms Hematologic/Lymphatic: Reports: No Symptoms Immunologic: Reports: No Symptoms ED EXAM, GENERAL - Physical Exam Exam: See Below Free Text/Narrative:: Alert, oriented, speaking to us with no deficit. NIH score of 10, please see sheet for details. There is mild left lid droop with focus intact. No reading deficit or cognition change noted. No other facial asymmetry is noted he is able to frown grimace smile point his tongue and speak clearly. automobile salesman Eladio relates that facial twitching leg twitching completely resolved at the time transport was initiated. HEENT is otherwise negative. Neck is soft supple no lymphadenopathy. Thorax is clear mildly diminished on the right side with no wheezes nor crackles. Cardiac is atrial fibrillation. Abdomen shows scars of previous procedures with no tenderness, bowel sounds are present. Sensation is noted to the left upper extremity but is flaccid to motion with no significant noted supervisor education strength. Right side is within normal limits. Left foot is slightly weaker to plantar flexion dorsiflexion. Overall left-sided extremity deficit appreciated. 09 [phone] [place] 1 call contacted [phone] More Who states this is seizure activity and not a stroke and should be placed on Keppra. Yosi remains alert and conversive with his daughter Hawa presenting here at the time of his arrival at the time of his arrival. Discussed with them the findings findings opinion of neurology with treatment to be initiated. Will implement Levaquin for the suspicion of Levaquin for the suspicion of as his white count elevation elevation on on treatment. Advised that this will need to be followed with lab work on Thursday. #1 Interpretation EKG Date: 06/28/21 Time: 01:50 Rhythm: A-Fib Rate (Beats/Min): 91 P-Wave: Absent QRS: RBBB ST-T: Normal Comparison: No Change Course - Orders/Labs/Meds Orders: Active Orders 24 hr Category Date Time Status Peripheral IV Care [RC] . DIRECTED Care 06/28/21 01:06 Active Chest 1V Frontal [CR] Stat Exams 06/28/21 01:39 Ordered Head wo Cont [CT] Routine Exams 06/28/21 01:32 Ordered Sodium Chloride 0.9% [Saline Flush] Med 06/28/21 01:06 Active 10 ml FLUSH Q8HR PRN levETIRAcetam [Keppra] Med 06/28/21 02:45 Active 1,000 mg PO BID levoFLOXacin [Levaquin] Med 06/28/21 03:00 Active 500 mg PO Q24H Peripheral IV Insertion Adult [OM.PC] Stat Oth 06/28/21 01:05 Ordered EKG 12 Lead [EK] Stat Ther 06/28/21 01:05 Ordered Medication Orders Levetiracetam (Levetiracetam 500 Mg Tab) 1,000 mg PO BID [facility] Last Admin: 06/28/21 02:48 Dose: 1,000 mg Documented by: CALESIL Levofloxacin (Levofloxacin 500 Mg Tab) 500 mg PO Q24H [facility] Last Admin: 06/28/21 03:02 Dose: 500 mg Documented by: CALESIL Sodium Chloride (Sodium Chloride 0.9% 10 Ml Syringe) 10 ml FLUSH Q8HR PRN PRN Reason: keep vein open Labs: Laboratory Tests 06/28/21 06/28/21 06/28/21 Range/Units 01:20 01:20 01:20 WBC 23.31 H D (5.00-10.00) 10^3/uL RBC 2.97 L (4.50-6.00) 10^6/uL Hgb 9.7 L (13.0-17.0) g/dL Hct 30.0 L (40.0-52.0) % MCV 101.0 H D (82.0-92.0) fL MCH 32.7 H (27.0-31.0) pg MCHC 32.3 (32.0-36.0) g/dL RDW 17.1 H (11.5-14.5) % Plt Count 133 L D (150-400) 10^3/uL MPV 10.5 H (7.4-10.4) fL Add Manual Diff Yes Neutrophils % (Manual) 91 H (50-70) % Band Neutrophils % 0 L (4-12) % Lymphocytes % (Manual) 6 L (20-40) % Atypical Lymphs % 0 Monocytes % (Manual) 3 (2-8) % Eosinophils % (Manual) 0 L (1-3) % Basophils % (Manual) 0 (0-1) % Toxic Granulation 1+ slight Platelet Estimate Decreased Hypochromasia 1+ slight Anisocytosis 1+ slight PT (9.2-11.2) SEC INR (0.9-1.1) APTT 22.2 L (22.8-31.4) SEC Sodium 134 L (136-145) mmol/L Potassium 4.3 (3.5-5.1) mmol/L Chloride 98 (98-107) mmol/L Carbon Dioxide 30.0 (21.0-32.0) mmol/L Anion Gap 10.3 (5-15) mmol/L BUN 9 (7-18) mg/dL Creatinine 0.46 L (0.51-1.17) mg/dL Est Cr Clr Drug Dosing 132.64 mL/min Estimated GFR (MDRD) > 60 mL/min Glucose 138 (70-140) mg/dL Calcium 7.6 L (8.7-10.3) mg/dL Total Bilirubin 0.3 (0.2-1.0) mg/dL AST 37 (15-37) U/L ALT 60 (14-63) U/L Alkaline Phosphatase 117 H (46-116) U/L Troponin I High Sens 11.100 (0-76.000) pg/mL Total Protein 5.5 L (6.4-8.2) g/dL Albumin 1.99 L (3.40-5.00) g/dL Specimen Type Urine Color (YELLOW) Urine Appearance (CLEAR) Urine pH (5.0-9.0) Ur Specific [place] (1.005-1.030) Urine Protein (NEGATIVE) mg/dL Urine Glucose (UA) (NEGATIVE) mg/dL Urine Ketones (NEGATIVE) mg/dL Urine Occult Blood (NEGATIVE) Urine Nitrite (NEGATIVE) Urine Bilirubin (NEGATIVE) Urine Urobilinogen (0.2-1.0) E.U./dL Ur Leukocyte Esterase (NEGATIVE) Urine RBC (0-5) /HPF Urine WBC (0-5) /HPF Ur Epithelial Cells /LPF Urine Bacteria (NONE TO FEW) /HPF 06/28/21 06/28/21 Range/Units 01:20 01:35 WBC (5.00-10.00) 10^3/uL RBC (4.50-6.00) 10^6/uL Hgb (13.0-17.0) g/dL Hct (40.0-52.0) % MCV (82.0-92.0) fL MCH (27.0-31.0) pg MCHC (32.0-36.0) g/dL RDW (11.5-14.5) % Plt Count (150-400) 10^3/uL MPV (7.4-10.4) fL Add Manual Diff Neutrophils % (Manual) (50-70) % Band Neutrophils % (4-12) % Lymphocytes % (Manual) (20-40) % Atypical Lymphs % Monocytes % (Manual) (2-8) % Eosinophils % (Manual) (1-3) % Basophils % (Manual) (0-1) % Toxic Granulation Platelet Estimate Hypochromasia Anisocytosis PT 9.3 (9.2-11.2) SEC INR 0.9 (0.9-1.1) APTT (22.8-31.4) SEC Sodium (136-145) mmol/L Potassium (3.5-5.1) mmol/L Chloride (98-107) mmol/L Carbon Dioxide (21.0-32.0) mmol/L Anion Gap (5-15) mmol/L BUN (7-18) mg/dL Creatinine (0.51-1.17) mg/dL Est Cr Clr Drug Dosing mL/min Estimated GFR (MDRD) mL/min Glucose (70-140) mg/dL Calcium (8.7-10.3) mg/dL Total Bilirubin (0.2-1.0) mg/dL AST (15-37) U/L ALT (14-63) U/L Alkaline Phosphatase (46-116) U/L Troponin I High Sens (0-76.000) pg/mL Total Protein (6.4-8.2) g/dL Albumin (3.40-5.00) g/dL Specimen Type Ur[place]ath Urine Color Yellow (YELLOW) Urine Appearance Clear (CLEAR) Urine pH 7.5 (5.0-9.0) Ur Specific [place] 1.010 (1.005-1.030) Urine Protein Negative (NEGATIVE) mg/dL Urine Glucose (UA) Negative (NEGATIVE) mg/dL Urine Ketones Negative (NEGATIVE) mg/dL Urine Occult Blood Trace-intact H (NEGATIVE) Urine Nitrite Negative (NEGATIVE) Urine Bilirubin Negative (NEGATIVE) Urine Urobilinogen 1.0 (0.2-1.0) E.U./dL Ur Leukocyte Esterase Negative (NEGATIVE) Urine RBC 0-5 (0-5) /HPF Urine WBC Not seen (0-5) /HPF Ur Epithelial Cells Rare /LPF Urine Bacteria Rare (NONE TO FEW) /HPF Meds: Medications Generic Name Dose Route Start Last Admin Trade Name Freq PRN Reason Stop Dose Admin Levetiracetam 1,000 mg 06/28/21 02:45 06/28/21 02:48 Levetiracetam 500 Mg Tab PO 1,000 mg BID KELY Administration Levofloxacin 500 mg 06/28/21 03:00 06/28/21 03:02 Levofloxacin 500 Mg Tab PO 500 mg Q24H KELY Administration Sodium Chloride 10 ml 06/28/21 01:06 Sodium Chloride 0.9% 10 Ml Syringe FLUSH Q8HR PRN keep vein open - Radiology Interpretation Free Text/Narrative:: Suspicious lung infection and unchanged metastatic brain tumor. Seizure treatment Keppra prophylaxis and Levaquin to be implemented. - Re-Assessments/Exams Free Text/Narrative Re-Assessment/Exam: 06/28/21 02:41 Dr. Argenis Lang neurology contacted after CT report was received. He feels with the location of the known lesion and the twitching to the face this was seizure activity and not stroke. Recommended placing on Keppra 1000 mg twice daily and follow-up as needed. Departure - Departure Time of Disposition: 02:59 Disposition: DC/Tfer to SNF 03 Condition: Fair Clinical Impression: Mass of upper lobe of right lung, Right lower lobe pneumonia, Left arm weakness, Left leg weakness, Lung mass Brain malignant neoplasm Qualifiers: Malignant neoplasm of brain location: frontal lobe Qualified Code(s): C71.1 - Malignant neoplasm of frontal lobe - Discharge Information *PRESCRIPTION DRUG MONITORING PROGRAM REVIEWED*: Not Applicable *COPY OF PRESCRIPTION DRUG MONITORING REPORT IN PATIENT ANA: Not Applicable Prescriptions: levETIRAcetam [Keppra] 1,000 mg PO BID 30 Days #60 tablet Levofloxacin [Levaquin] 500 mg PO DAILY 6 Days #6 tablet Referrals: Sadia Brooks MD [Physician] - Estefania Brdaley MD [Physician] - Forms: ED Department Discharge Additional Instructions: After discussion with Dr. More neurology, [facility], he is recommending treatment for seizure disorder knowing his lesion placement as well as symptoms experienced at the facility tonight. Keppra 1000 mg twice daily will be implemented. With the radiology report suspicious for infectious process of the right lung with white count elevated beyond what steroid would likely be responsible for we will implement Levaquin 500 mg daily for 7 days. All previous treatments, medications, and activities are to be continued. Contact responsible provider to provide a breakthrough seizure protocol backup plan per facility protocol. Recheck on elevated WBC and chest film. Contact clinic for further follow-up. - Problem List & Annotations (1) Seizure SNOMED Code(s): 99478258 Code(s): R56.9 - UNSPECIFIED CONVULSIONS Status: Acute Priority: High (2) Brain malignant neoplasm SNOMED Code(s): 011326388 Code(s): C71.9 - MALIGNANT NEOPLASM OF BRAIN, UNSPECIFIED Status: Chronic Priority: High Qualifiers: Malignant neoplasm of brain location: frontal lobe Qualified Code(s): C71.1 - Malignant neoplasm of frontal lobe (3) Left arm weakness SNOMED Code(s): 032226428 Code(s): R29.898 - OTH SYMPTOMS AND SIGNS INVOLVING THE MUSCULOSKELETAL SYSTEM Status: Acute Priority: High (4) Left leg weakness SNOMED Code(s): 031765821, 067689632 Code(s): R29.898 - OTH SYMPTOMS AND SIGNS INVOLVING THE MUSCULOSKELETAL SYSTEM Status: Acute Priority: High (5) Right lower lobe pneumonia SNOMED Code(s): 293257283 Code(s): J18.9 - PNEUMONIA, UNSPECIFIED ORGANISM Status: Acute (6) Mass of upper lobe of right lung SNOMED Code(s): 945284670, 100847621 Code(s): R91.8 - OTHER NONSPECIFIC ABNORMAL FINDING OF LUNG FIELD Status: Acute - Problem List Review Problem List Initiated/Reviewed/Updated: Yes - My Orders Last 24 Hours: My Active Orders 06/28/21 01:05 Peripheral IV Insertion Adult [OM.PC] Stat EKG 12 Lead [EK] Stat 06/28/21 01:06 Peripheral IV Care [RC] . DIRECTED Sodium Chloride 0.9% [Saline Flush] 10 ml FLUSH Q8HR PRN 06/28/21 01:32 Head wo Cont [CT] Routine 06/28/21 01:39 Chest 1V Frontal [CR] Stat 06/28/21 02:45 levETIRAcetam [Keppra] 1,000 mg PO BID 06/28/21 03:00 levoFLOXacin [Levaquin] 500 mg PO Q24H - Assessment/Plan Last 24 Hours: My Active Orders 06/28/21 01:05 Peripheral IV Insertion Adult [OM.PC] Stat EKG 12 Lead [EK] Stat 06/28/21 01:06 Peripheral IV Care [RC] . DIRECTED Sodium Chloride 0.9% [Saline Flush] 10 ml FLUSH Q8HR PRN 06/28/21 01:32 Head wo Cont [CT] Routine 06/28/21 01:39 Chest 1V Frontal [CR] Stat 06/28/21 02:45 levETIRAcetam [Keppra] 1,000 mg PO BID 06/28/21 03:00 levoFLOXacin [Levaquin] 500 mg PO Q24H Plan: After discussion with Dr. More neurology, [facility], he is recommending treatment for seizure disorder knowing his lesion placement as well as symptoms experienced at the facility tonight. Keppra 1000 mg twice daily will be implemented. With the radiology report suspicious for infectious process of the right lung with white count elevated beyond what steroid would likely be responsible for we will implement Levaquin 500 mg daily for 7 days. All previous treatments, medications, and activities are to be continued. Contact responsible provider to provide a breakthrough seizure protocol backup plan per facility protocol. Recheck on elevated WBC and chest film. Contact clinic for further follow-up.
[2021-06-28 01:49] LABS: ANION GAP 10.3 mmol/L (5-15); CHLORIDE,CL 98 mmol/L (98-107); SODIUM,NA 134 mmol/L (136-145)
[2021-06-28] MEDS ORDERED: levETIRAcetam 500 MG Tab PO SCH (02:45)
[2021-06-28] MEDS ORDERED: Levofloxacin 500 MG Tab PO SCH (03:00)
[2021-06-28 04:26] VITALS: BP 105/83; PULSE 82
--- NOTE | 2021-06-28 08:47 | CR ---
[id number] RAD/RAD Chest Portable EXAM: RAD Chest Portable INDICATION: STROKE PROTOCOL COMPARISON: April 25, 2021. DISCUSSION/IMPRESSION: Near complete resolution of previously seen left-sided pleural effusion. Small amount residual effusion and/or opacity in the left lung base. Known right upper lobe mass is again seen. No change from the prior examination. No other significant abnormality. Mark Matamoros MD 06/28/21 0846 Thank you for allowing us to participate in the care of your patient.
--- NOTE | 2021-06-28 08:53 | CT ---
[id number] CT/CT Head WO IV EXAM: NONCONTRAST HEAD CT INDICATION: LEFT SIDED WEAKNESS COMPARISON: June 11, 2021. DISCUSSION: A hyperdense 28 x 27 x 24 mm intra-axial mass in the right frontal lobe has increased from the previous of 24 x 23 x 19 mm. The degree of surrounding vasogenic edema is stable or minimally increased. The sulci at the site of the mass are mildly effaced and there is slight leftward midline shift of about 3 mm. Stable mild generalized atrophy and mild to moderate chronic small vessel ischemic changes. Frothy secretions left sphenoid sinus compatible with acute sinusitis. There are few opacified mastoid air cells bilaterally. These findings are similar to the prior study. IMPRESSION: 1. A hyperdense 28 mm right frontal lobe mass with surrounding vasogenic edema has mildly increased in size. Alhaji Brothers MD 06/28/21 0852 Thank you for allowing us to participate in the care of your patient.
== END 2021-06-28 03:40 ==
LOC: KA.ED 00:58
DX: C71.1 Malignant neoplasm of frontal lobe (principal); J18.9 Pneumonia, unspecified organism; R91.8 Other nonspecific abnormal finding of lung field; R53.1 Weakness; I45.10 Unspecified right bundle-branch block; I48.91 Unspecified atrial fibrillation; I11.0 Hypertensive heart disease with heart failure; I50.32 Chronic diastolic (congestive) heart failure; J44.9 Chronic obstructive pulmonary disease, unspecified; Z86.16 Personal history of COVID-19; Z79.899 Other long term (current) drug therapy
CPT/HCPCS: 36415; 70450; 71045; 80053; 81001; 84484; 85025; 85610; 85730; 99285-25; A9270-GY